=== PATIENT | female | born 1965 | race African-American/Black ===

== ENCOUNTER 2016-08-12 09:20 | Emergency (ER) | payer OTHER ==
[~2016-08-12] VITALS: Ht 162.6 cm; Wt 82.0 kg
[~2016-08-12 09:20] MED LIST: ATORVASTATIN; CO Q10; ERGO400C PO; HYDR-523 PO; METF500T4 PO; P20 PO
[2016-08-12 09:36] VITALS: BP 135/75
[2016-08-12] MEDS ORDERED: IBUPROFEN 600MG TABLET PO ONE (10:00)
== END 2016-08-12 10:41 | disposition home or self-care (01) ==
LOC: ER 09:43
DX: S16.1XXA Strain of muscle, fascia and tendon at neck level, initial encounter (principal); M19.90 Unspecified osteoarthritis, unspecified site; E11.9 Type 2 diabetes mellitus without complications; E78.00 Pure hypercholesterolemia, unspecified; J45.909 Unspecified asthma, uncomplicated; Z79.84 Long term (current) use of oral hypoglycemic drugs; Z88.0 Allergy status to penicillin; X50.1XXA Overexertion from prolonged static or awkward postures, initial encounter; Y93.89 Activity, other specified; Y92.013 Bedroom of single-family (private) house as the place of occurrence of the external cause
CPT/HCPCS: 99282

== ENCOUNTER 2016-12-23 11:09 | Emergency (ER) | payer OTHER ==
[~2016-12-23] VITALS: Ht 167.6 cm; Wt 70.0 kg
[2016-12-23 14:40] VITALS: BP 147/84
== END 2016-12-23 16:33 | disposition home or self-care (01) ==
LOC: ER 16:06
DX: I10 Essential (primary) hypertension (principal); E11.9 Type 2 diabetes mellitus without complications; Z88.0 Allergy status to penicillin
CPT/HCPCS: 99281

== ENCOUNTER 2016-12-24 21:05 | Emergency (ER) | payer OTHER ==
[~2016-12-24] VITALS: Ht 162.6 cm; Wt 83.0 kg
[2016-12-24 22:50] LABS: BASOPHILS % 0.8 % (0.0-2.0); EOSINOPHILS % 1.9 % (0.0-5.0); HEMOGLOBIN. 12.6 g/dL (12.0-16.0); MEAN CORPUSCULAR HEMOGLOBIN 29.6 pg (28.0-32.0); MEAN CORPUSCULAR VOLUME 89.3 fL (81.0-99.0); MEAN PLATELET VOLUME 9.2 fl (7.4-10.4); MONOCYTES % 8.5 % (2.0-8.0); NEUTROPHILS % 55.8 % (40.0-76.0); PLATELET 242 x1000/uL (130-400); RED BLOOD CELL COUNT 4.25 mill/uL (4.2-5.4); RED CELL DISTRIBUTION WIDTH 13.8 % (11.6-14.6)
[2016-12-24 22:56] LABS: CHLORIDE 102 mEq/L (98-107)
[2016-12-24 23:01] LABS: PARTIAL THROMBOPLASTIN TIME 28.2 sec (23.4-31.0); PROTHROMBIN TIME 10.9 sec (9.4-11.6)
[2016-12-24 23:04] LABS: CARBON DIOXIDE 27 mEq/L (21-32); CREATINE KINASE 594 IU/L (26-192); TROPONIN I < 0.02 ng/mL (0.00-0.04)
[2016-12-25 04:30] VITALS: BP 131/86
== END 2016-12-25 05:33 | disposition home or self-care (01) ==
LOC: ER 21:05
DX: F41.8 Other specified anxiety disorders (principal); R07.89 Other chest pain; I10 Essential (primary) hypertension; I51.7 Cardiomegaly; Z88.0 Allergy status to penicillin; J45.909 Unspecified asthma, uncomplicated
CPT/HCPCS: 36415; 80053; 82550; 82553; 83690; 83880; 84484; 85025; 85610; 85730; 93005; 99285; Z7610

== ENCOUNTER 2017-01-28 17:52 | Emergency (ER) | payer OTHER ==
[~2017-01-28] VITALS: Ht 162.6 cm; Wt 84.0 kg
[2017-01-28 18:05] VITALS: BP 127/91
[2017-01-28] MEDS ORDERED: ACETAMINOPHEN 500MG TABLET PO ONE (18:30)
== END 2017-01-28 18:56 | disposition home or self-care (01) ==
LOC: ER 18:11
DX: G44.209 Tension-type headache, unspecified, not intractable (principal); I10 Essential (primary) hypertension; Z88.0 Allergy status to penicillin
CPT/HCPCS: 99282

== ENCOUNTER 2017-02-20 16:40 | Emergency (ER) | payer OTHER ==
[~2017-02-20] VITALS: Ht 160 cm; Wt 81.0 kg
[2017-02-20 17:00] VITALS: BP 120/82
== END 2017-02-20 18:45 | disposition home or self-care (01) ==
LOC: ER 18:05
DX: H57.8 Other specified disorders of eye and adnexa (principal); I10 Essential (primary) hypertension; E11.9 Type 2 diabetes mellitus without complications; Z88.0 Allergy status to penicillin
CPT/HCPCS: 82962; 99282

== ENCOUNTER 2017-03-14 09:59 | Emergency (ER) | payer OTHER ==
[~2017-03-14] VITALS: Ht 162.6 cm; Wt 81.0 kg
[2017-03-14 14:13] LABS: CLARITY URINE CLEAR (CLEAR); COLOR URINE YELLOW (YELLOW); KETONES URINE NEGATIVE (NEGATIVE); LEUKOCYTE ESTERASE URINE NEGATIVE (NEGATIVE); NITRITE URINE NEGATIVE (NEGATIVE); OCCULT BLOOD URINE NEGATIVE (NEGATIVE); PH URINE 7.5 (4.5-8.0); PROTEIN URINE NEGATIVE (NEGATIVE); SPECIFIC GRAVITY URINE 1.016 (1.005-1.030); UROBILINOGEN URINE 0.2 E.U./dL (0.2-1.0)
[2017-03-14 14:16] LABS: BASOPHILS % 0.6 % (0.0-2.0); EOSINOPHILS % 0.9 % (0.0-5.0); HEMOGLOBIN. 12.2 g/dL (12.0-16.0); LYMPHOCYTES % 20.5 % (20.0-50.0); MEAN CORPUSCULAR HEMOGLOBIN 28.8 pg (28.0-32.0); MEAN PLATELET VOLUME 9.9 fl (7.4-10.4); MONOCYTES % 10.9 % (2.0-8.0); NEUTROPHILS % 67.1 % (40.0-76.0); PLATELET 175 x1000/uL (130-400); RED BLOOD CELL COUNT 4.23 mill/uL (4.2-5.4); RED CELL DISTRIBUTION WIDTH 13.7 % (11.6-14.6)
[2017-03-14 14:20] LABS: CHLORIDE 105 mEq/L (98-107)
[2017-03-14 14:21] LABS: PROTHROMBIN TIME 10.4 sec (9.4-11.6)
[2017-03-14 14:31] LABS: CARBON DIOXIDE 27 mEq/L (21-32)
[2017-03-14] MEDS ORDERED: ACETAMINOPHEN 500MG TABLET PO ONE (15:30)
[2017-03-14 15:40] VITALS: BP 127/76
== END 2017-03-14 15:44 | disposition home or self-care (01) ==
LOC: ER 10:15
DX: J06.9 Acute upper respiratory infection, unspecified (principal); R19.7 Diarrhea, unspecified; J45.909 Unspecified asthma, uncomplicated; Z88.0 Allergy status to penicillin
CPT/HCPCS: 36415; 71010; 80053; 81003; 83690; 85025; 85610; 99285; Z7610

== ENCOUNTER 2017-03-22 18:03 | Emergency (ER) | payer OTHER ==
[~2017-03-22] VITALS: Ht 162.6 cm; Wt 80.0 kg
[2017-03-23 00:10] VITALS: BP 140/90
== END 2017-03-23 00:13 | disposition home or self-care (01) ==
LOC: ER 18:03
DX: F41.9 Anxiety disorder, unspecified (principal); R20.0 Anesthesia of skin; J45.909 Unspecified asthma, uncomplicated; I10 Essential (primary) hypertension; E78.00 Pure hypercholesterolemia, unspecified; E11.9 Type 2 diabetes mellitus without complications; Z88.0 Allergy status to penicillin
CPT/HCPCS: 99282

== ENCOUNTER 2017-03-23 09:16 | Emergency (ER) | payer OTHER ==
[~2017-03-23] VITALS: Ht 162.6 cm; Wt 79.0 kg
[2017-03-23 16:35] VITALS: BP 134/90
== END 2017-03-23 16:55 | disposition left against medical advice (07) ==
LOC: ER 10:26
DX: F41.9 Anxiety disorder, unspecified (principal); Z53.21 Procedure and treatment not carried out due to patient leaving prior to being seen by health care provider

== ENCOUNTER 2017-04-12 14:03 | Emergency (ER) | payer OTHER ==
[~2017-04-12] VITALS: Ht 162.6 cm; Wt 80.0 kg
[2017-04-12 14:12] VITALS: BP 139/84
== END 2017-04-12 16:25 | disposition home or self-care (01) ==
LOC: ER 14:08
DX: M54.2 Cervicalgia (principal); M25.512 Pain in left shoulder; F43.9 Reaction to severe stress, unspecified; I10 Essential (primary) hypertension; E78.00 Pure hypercholesterolemia, unspecified; E11.9 Type 2 diabetes mellitus without complications; Z88.0 Allergy status to penicillin
CPT/HCPCS: 99281

== ENCOUNTER 2017-04-29 16:20 | Emergency (ER) | payer OTHER ==
[~2017-04-29] VITALS: Ht 162.6 cm; Wt 77.0 kg
[2017-04-29 16:37] VITALS: BP 135/88
== END 2017-04-29 19:12 | disposition left against medical advice (07) ==
LOC: ER 16:55
DX: M79.605 Pain in left leg (principal); M79.604 Pain in right leg; Z53.21 Procedure and treatment not carried out due to patient leaving prior to being seen by health care provider

== ENCOUNTER 2017-04-30 04:14 | Emergency (ER) | payer OTHER ==
[~2017-04-30] VITALS: Ht 162.6 cm; Wt 77.0 kg
[2017-04-30 06:40] VITALS: BP 135/90
== END 2017-04-30 07:00 | disposition home or self-care (01) ==
LOC: ER 04:14
DX: I10 Essential (primary) hypertension (principal); M79.1 Myalgia; E11.9 Type 2 diabetes mellitus without complications; Z88.0 Allergy status to penicillin
CPT/HCPCS: 82962; 99282

== ENCOUNTER 2017-05-10 07:33 | Emergency (ER) | payer OTHER ==
[~2017-05-10] VITALS: Ht 162.6 cm; Wt 75.0 kg
[2017-05-10 07:37] VITALS: BP 117/75
[2017-05-10] MEDS ORDERED: ACETAMINOPHEN 325MG TABLET PO ONE (09:00)
== END 2017-05-10 09:28 | disposition home or self-care (01) ==
LOC: ER 07:41
DX: R51 Headache (principal); E11.9 Type 2 diabetes mellitus without complications; I10 Essential (primary) hypertension; Z88.0 Allergy status to penicillin
CPT/HCPCS: 99282

== ENCOUNTER 2017-05-12 14:07 | Emergency (ER) | payer OTHER ==
[~2017-05-12] VITALS: Ht 152.4 cm; Wt 73.0 kg
[2017-05-12 18:35] LABS: BASOPHILS % 0.8 % (0.0-2.0); EOSINOPHILS % 2.3 % (0.0-5.0); HEMATOCRIT. 37.2 % (36.0-48.0); HEMOGLOBIN. 12.3 g/dL (12.0-16.0); LYMPHOCYTES % 40.2 % (20.0-50.0); MEAN CORPUSCULAR HEMOGLOBIN 29.3 pg (28.0-32.0); MEAN CORPUSCULAR VOLUME 88.7 fL (81.0-99.0); MONOCYTES % 7.6 % (2.0-8.0); NEUTROPHILS % 49.1 % (40.0-76.0); PLATELET 193 x1000/uL (130-400); RED CELL DISTRIBUTION WIDTH 14.6 % (11.6-14.6)
[2017-05-12 18:45] LABS: CHLORIDE 105 mEq/L (98-107)
[2017-05-12 18:46] LABS: HCG SCREEN NEGATIVE
[2017-05-12 18:50] LABS: TROPONIN I < 0.02 ng/mL (0.00-0.04)
[2017-05-12 19:01] LABS: CLARITY URINE CLEAR (CLEAR); COLOR URINE YELLOW (YELLOW); KETONES URINE NEGATIVE (NEGATIVE); LEUKOCYTE ESTERASE URINE TRACE (NEGATIVE); NITRITE URINE NEGATIVE (NEGATIVE); OCCULT BLOOD URINE NEGATIVE (NEGATIVE); PH URINE 7.5 (4.5-8.0); PROTEIN URINE NEGATIVE (NEGATIVE); SPECIFIC GRAVITY URINE 1.007 (1.005-1.030); UROBILINOGEN URINE 0.2 E.U./dL (0.2-1.0)
[2017-05-12 20:26] VITALS: BP 132/79
== END 2017-05-12 20:29 | disposition home or self-care (01) ==
LOC: ER 14:41
DX: R42 Dizziness and giddiness (principal); E11.9 Type 2 diabetes mellitus without complications; I10 Essential (primary) hypertension; E78.00 Pure hypercholesterolemia, unspecified; Z88.0 Allergy status to penicillin
CPT/HCPCS: 36415; 71045; 80053; 81003; 84484; 84703; 85025; 93005; 99285

== ENCOUNTER 2017-05-20 19:26 | Emergency (ER) | payer OTHER ==
[~2017-05-20] VITALS: Ht 165.1 cm; Wt 63.0 kg
[2017-05-21 00:34] VITALS: BP 140/88
== END 2017-05-21 00:38 | disposition home or self-care (01) ==
LOC: ER 20:00
DX: I10 Essential (primary) hypertension (principal); R51 Headache; E11.9 Type 2 diabetes mellitus without complications; Z79.84 Long term (current) use of oral hypoglycemic drugs; Z88.0 Allergy status to penicillin
CPT/HCPCS: 99283; Z7610

== ENCOUNTER 2017-05-26 05:45 | Emergency (ER) | payer OTHER ==
[~2017-05-26] VITALS: Ht 162.6 cm; Wt 77.0 kg
[2017-05-26 11:14] VITALS: BP 120/75
[2017-05-26] MEDS ORDERED: ACETAMINOPHEN 325MG TABLET PO ONE (12:45)
== END 2017-05-26 13:28 | disposition home or self-care (01) ==
LOC: ER 06:55
DX: G44.209 Tension-type headache, unspecified, not intractable (principal); I10 Essential (primary) hypertension; E78.00 Pure hypercholesterolemia, unspecified; E11.9 Type 2 diabetes mellitus without complications; Z88.0 Allergy status to penicillin
CPT/HCPCS: 82962; 99282

== ENCOUNTER 2017-05-27 21:08 | Emergency (ER) | payer OTHER ==
[~2017-05-27] VITALS: Ht 162.6 cm; Wt 77.0 kg
[2017-05-27 22:17] VITALS: BP 116/80
== END 2017-05-28 01:04 | disposition home or self-care (01) ==
LOC: ER 22:52
DX: E11.9 Type 2 diabetes mellitus without complications (principal); I10 Essential (primary) hypertension; E78.00 Pure hypercholesterolemia, unspecified
CPT/HCPCS: 99282

== ENCOUNTER 2017-05-31 11:57 | Emergency (ER) | payer OTHER ==
[~2017-05-31] VITALS: Ht 167.6 cm; Wt 78.0 kg
[2017-05-31 11:58] VITALS: BP 140/80
[2017-05-31] MEDS ORDERED: LORAZEPAM 0.5MG TABLET PO ONE (15:45)
== END 2017-05-31 15:47 | disposition home or self-care (01) ==
LOC: ER 11:57
DX: F41.9 Anxiety disorder, unspecified (principal); I10 Essential (primary) hypertension; E78.00 Pure hypercholesterolemia, unspecified; E11.9 Type 2 diabetes mellitus without complications; Z88.0 Allergy status to penicillin
CPT/HCPCS: 99284

== ENCOUNTER 2017-06-03 21:41 | Emergency (ER) | payer OTHER | END 2017-06-03 23:31 | disposition left against medical advice (07) | LOC: ER 21:41 | DX: Z53.21 Procedure and treatment not carried out due to patient leaving prior to being seen by health care provider (principal) ==

== ENCOUNTER 2017-06-08 20:11 | Emergency (ER) | payer OTHER ==
[~2017-06-08] VITALS: Ht 162.6 cm; Wt 78.0 kg
[2017-06-08 20:29] VITALS: BP 130/86
== END 2017-06-08 22:12 | disposition home or self-care (01) ==
LOC: ER 20:42
DX: H92.01 Otalgia, right ear (principal); E11.9 Type 2 diabetes mellitus without complications; E78.00 Pure hypercholesterolemia, unspecified; I10 Essential (primary) hypertension; Z88.0 Allergy status to penicillin
CPT/HCPCS: 99282

== ENCOUNTER 2017-06-16 01:09 | Emergency (ER) | payer OTHER ==
[~2017-06-16] VITALS: Ht 162.6 cm; Wt 78.0 kg
[2017-06-16 05:14] VITALS: BP 132/91
== END 2017-06-16 05:16 | disposition home or self-care (01) ==
LOC: ER 01:09
DX: R20.2 Paresthesia of skin (principal); R20.0 Anesthesia of skin; E11.9 Type 2 diabetes mellitus without complications; I10 Essential (primary) hypertension; E78.00 Pure hypercholesterolemia, unspecified; F41.9 Anxiety disorder, unspecified; E66.9 Obesity, unspecified; Z68.29 Body mass index [BMI] 29.0-29.9, adult; Z88.0 Allergy status to penicillin
CPT/HCPCS: 99283

== ENCOUNTER 2017-06-28 08:34 | Emergency (ER) | payer OTHER ==
[~2017-06-28] VITALS: Ht 162.6 cm; Wt 77.0 kg
[2017-06-28 08:38] VITALS: BP 132/83
[2017-06-28] MEDS ORDERED: HYDROCODONE/ACETAMINOPHEN 5/325MG TABLET PO ONE (09:00)
[2017-06-28] MEDS ORDERED: ACETAMINOPHEN 325MG TABLET PO ONE (09:15)
== END 2017-06-28 09:41 | disposition home or self-care (01) ==
LOC: ER 09:04
DX: R68.84 Jaw pain (principal); I10 Essential (primary) hypertension; E78.00 Pure hypercholesterolemia, unspecified; E11.9 Type 2 diabetes mellitus without complications; Z88.0 Allergy status to penicillin
CPT/HCPCS: 99283

== ENCOUNTER 2017-07-27 13:53 | Emergency (ER) | payer OTHER ==
[~2017-07-27] VITALS: Ht 162.6 cm; Wt 73.0 kg
[2017-07-27] MEDS ORDERED: LORAZEPAM 0.5MG TABLET PO ONE (16:30)
[2017-07-27 16:45] VITALS: BP 122/79
== END 2017-07-27 16:59 | disposition home or self-care (01) ==
LOC: ER 13:53
DX: F41.9 Anxiety disorder, unspecified (principal); I10 Essential (primary) hypertension; E78.00 Pure hypercholesterolemia, unspecified; E11.9 Type 2 diabetes mellitus without complications; Z88.0 Allergy status to penicillin; Z79.84 Long term (current) use of oral hypoglycemic drugs
CPT/HCPCS: 99283; 99284

== ENCOUNTER 2017-09-01 14:16 | Emergency (ER) | payer OTHER ==
[~2017-09-01] VITALS: Ht 162.6 cm; Wt 73.0 kg
[~2017-09-01 14:16] MED LIST changes: -METF500T4 PO; +METF500T6 PO
[2017-09-01 16:16] VITALS: BP 112/70
== END 2017-09-01 16:17 | disposition home or self-care (01) ==
LOC: ER 14:54
DX: F41.9 Anxiety disorder, unspecified (principal); E78.00 Pure hypercholesterolemia, unspecified; I10 Essential (primary) hypertension; E11.9 Type 2 diabetes mellitus without complications; Z88.0 Allergy status to penicillin
CPT/HCPCS: 99283

== ENCOUNTER 2017-10-13 21:22 | Emergency (ER) | payer OTHER ==
[~2017-10-13] VITALS: Ht 162.6 cm; Wt 74.0 kg
[2017-10-13 21:43] VITALS: BP 132/82
== END 2017-10-13 21:48 | disposition left against medical advice (07) ==
LOC: ER 21:22
DX: M54.2 Cervicalgia (principal); I10 Essential (primary) hypertension; E11.9 Type 2 diabetes mellitus without complications; E78.00 Pure hypercholesterolemia, unspecified; Z53.21 Procedure and treatment not carried out due to patient leaving prior to being seen by health care provider

== ENCOUNTER 2017-10-23 17:48 | Emergency (ER) | payer OTHER ==
[~2017-10-23] VITALS: Ht 157.5 cm; Wt 71.8 kg
[2017-10-23 20:29] LABS: BASOPHILS % 0.7 % (0.0-2.0); EOSINOPHILS % 1.5 % (0.0-5.0); HEMOGLOBIN. 12.7 g/dL (12.0-16.0); LYMPHOCYTES % 29.6 % (20.0-50.0); MEAN CORPUSCULAR HEMOGLOBIN 29.5 pg (28.0-32.0); MEAN CORPUSCULAR VOLUME 90.7 fL (81.0-99.0); MEAN PLATELET VOLUME 9.3 fl (7.4-10.4); MONOCYTES % 6.7 % (2.0-8.0); NEUTROPHILS % 61.5 % (40.0-76.0); PLATELET 201 x1000/uL (130-400); RED CELL DISTRIBUTION WIDTH 14.2 % (11.6-14.6)
[2017-10-23 20:34] LABS: CHLORIDE 104 mEq/L (98-107)
[2017-10-23 20:40] LABS: D-DIMER 0.21 mg/L FEU (<0.50); PARTIAL THROMBOPLASTIN TIME 27.6 sec (23.4-31.0); PROTHROMBIN TIME 10.3 sec (9.1-11.1)
[2017-10-23 21:01] VITALS: BP 126/80
== END 2017-10-23 21:03 | disposition home or self-care (01) ==
LOC: ER 17:48
DX: R20.2 Paresthesia of skin (principal); I10 Essential (primary) hypertension; E11.9 Type 2 diabetes mellitus without complications
CPT/HCPCS: 36415; 80053; 83690; 83880; 84484; 85025; 85379; 85610; 85730; 93005; 99285

== ENCOUNTER 2017-10-27 06:26 | Emergency (ER) | payer OTHER ==
[~2017-10-27] VITALS: Ht 165.1 cm; Wt 79.9 kg
[2017-10-27] MEDS ORDERED: ALBUTEROL (0.083%) 2.5MG/3ML NEB HHN STA (07:34)
[2017-10-27] MEDS ORDERED: IPRATROPIUM BROMIDE (0.02%) 0.5MG/2.5ML NEB HHN STA (07:34)
[2017-10-27 09:44] VITALS: BP 133/77
== END 2017-10-27 09:46 | disposition home or self-care (01) ==
LOC: ER 07:36
DX: J45.901 Unspecified asthma with (acute) exacerbation (principal); E78.00 Pure hypercholesterolemia, unspecified; I10 Essential (primary) hypertension; Z79.899 Other long term (current) drug therapy; Z88.0 Allergy status to penicillin
CPT/HCPCS: 94640; 99283; J7611

== ENCOUNTER 2017-10-31 11:53 | Emergency (ER) | payer OTHER ==
[~2017-10-31] VITALS: Ht 165.1 cm; Wt 73.0 kg
[2017-10-31 12:22] VITALS: BP 113/70
== END 2017-10-31 13:04 | disposition home or self-care (01) ==
LOC: ER 11:53
DX: R20.2 Paresthesia of skin (principal); E11.9 Type 2 diabetes mellitus without complications; J45.909 Unspecified asthma, uncomplicated; E78.00 Pure hypercholesterolemia, unspecified; Z79.84 Long term (current) use of oral hypoglycemic drugs; Z88.0 Allergy status to penicillin
CPT/HCPCS: 93005; 99283

== ENCOUNTER 2017-11-19 17:43 | Emergency (ER) | payer OTHER ==
[~2017-11-19] VITALS: Ht 165.1 cm; Wt 72.0 kg
[2017-11-19 18:35] VITALS: BP 136/94
== END 2017-11-19 19:21 | disposition home or self-care (01) ==
LOC: ER 17:43
DX: T18.9XXD Foreign body of alimentary tract, part unspecified, subsequent encounter (principal); J45.909 Unspecified asthma, uncomplicated; E78.00 Pure hypercholesterolemia, unspecified; Z88.0 Allergy status to penicillin; Z79.899 Other long term (current) drug therapy; X58.XXXD Exposure to other specified factors, subsequent encounter
CPT/HCPCS: 99281

== ENCOUNTER 2017-11-25 08:42 | Emergency (ER) | payer OTHER ==
[~2017-11-25] VITALS: Ht 167.6 cm; Wt 73.0 kg
[2017-11-25] MEDS ORDERED: ALBUTEROL (0.083%) 2.5MG/3ML NEB HHN STA (10:42)
[2017-11-25] MEDS ORDERED: IPRATROPIUM BROMIDE (0.02%) 0.5MG/2.5ML NEB HHN STA (10:42)
[2017-11-25 11:58] VITALS: BP 112/76
== END 2017-11-25 12:04 | disposition home or self-care (01) ==
LOC: ER 08:42
DX: J45.901 Unspecified asthma with (acute) exacerbation (principal); E11.9 Type 2 diabetes mellitus without complications; E78.00 Pure hypercholesterolemia, unspecified; Z88.0 Allergy status to penicillin
CPT/HCPCS: 94640; 99283; J7611

== ENCOUNTER 2017-12-09 19:46 | Emergency (ER) | payer OTHER ==
[~2017-12-09] VITALS: Ht 165.1 cm; Wt 74.0 kg
[2017-12-09 23:25] VITALS: BP 133/84
== END 2017-12-09 23:26 | disposition home or self-care (01) ==
LOC: ER 21:01
DX: Z00.00 Encounter for general adult medical examination without abnormal findings (principal); E11.9 Type 2 diabetes mellitus without complications; I10 Essential (primary) hypertension; E78.00 Pure hypercholesterolemia, unspecified; J45.909 Unspecified asthma, uncomplicated; Z88.0 Allergy status to penicillin; Z79.84 Long term (current) use of oral hypoglycemic drugs

== ENCOUNTER 2017-12-20 05:40 | Emergency (ER) | payer OTHER ==
[~2017-12-20] VITALS: Ht 162.6 cm; Wt 74.0 kg
[2017-12-20 06:41] VITALS: BP 127/78
== END 2017-12-20 06:46 | disposition home or self-care (01) ==
LOC: ER 05:40
DX: F17.210 Nicotine dependence, cigarettes, uncomplicated (principal); J45.909 Unspecified asthma, uncomplicated; E11.9 Type 2 diabetes mellitus without complications; E78.00 Pure hypercholesterolemia, unspecified; I10 Essential (primary) hypertension; Z00.00 Encounter for general adult medical examination without abnormal findings; Z88.0 Allergy status to penicillin; Z79.899 Other long term (current) drug therapy
CPT/HCPCS: 99281

== ENCOUNTER 2017-12-24 18:26 | Emergency (ER) | payer OTHER ==
[~2017-12-24] VITALS: Ht 162.6 cm; Wt 73.0 kg
[2017-12-24 19:11] VITALS: BP 150/81
== END 2017-12-24 21:03 | disposition home or self-care (01) ==
LOC: ER 18:26
DX: E11.40 Type 2 diabetes mellitus with diabetic neuropathy, unspecified (principal); J45.909 Unspecified asthma, uncomplicated; E11.9 Type 2 diabetes mellitus without complications; E78.00 Pure hypercholesterolemia, unspecified; F17.200 Nicotine dependence, unspecified, uncomplicated; Z88.0 Allergy status to penicillin; Z79.899 Other long term (current) drug therapy
CPT/HCPCS: 82962; 99281

== ENCOUNTER 2018-01-18 08:23 | Emergency (ER) | payer OTHER ==
[~2018-01-18] VITALS: Ht 162.6 cm; Wt 72.0 kg
[~2018-01-18 08:23] MED LIST changes: +METF-414 PO; -METF500T6 PO
[2018-01-18] MEDS ORDERED: FLUORESCEIN SODIUM 1MG/STRIP LEFTEYE ONE (09:15)
[2018-01-18 10:28] VITALS: BP 138/76
== END 2018-01-18 10:43 | disposition home or self-care (01) ==
LOC: ER 09:33
DX: S91.332A Puncture wound without foreign body, left foot, initial encounter (principal); W45.0XXA Nail entering through skin, initial encounter; J45.909 Unspecified asthma, uncomplicated; E78.00 Pure hypercholesterolemia, unspecified; I10 Essential (primary) hypertension; Z88.0 Allergy status to penicillin; Y93.89 Activity, other specified; Y92.018 Other place in single-family (private) house as the place of occurrence of the external cause
CPT/HCPCS: 73620; 99284

== ENCOUNTER 2018-01-22 07:56 | Emergency (ER) | payer OTHER ==
[~2018-01-22] VITALS: Ht 165.1 cm; Wt 73.0 kg
[2018-01-22 08:03] VITALS: BP 122/85
== END 2018-01-22 10:01 | disposition left against medical advice (07) ==
LOC: ER 09:20
DX: Z53.21 Procedure and treatment not carried out due to patient leaving prior to being seen by health care provider (principal)

== ENCOUNTER 2018-02-02 10:15 | Emergency (ER) | payer OTHER ==
[~2018-02-02] VITALS: Ht 165.1 cm; Wt 73.0 kg
[2018-02-02 10:42] VITALS: BP 132/85
== END 2018-02-02 13:37 | disposition home or self-care (01) ==
LOC: ER 12:58
DX: S16.1XXA Strain of muscle, fascia and tendon at neck level, initial encounter (principal); E78.00 Pure hypercholesterolemia, unspecified; I10 Essential (primary) hypertension; F10.20 Alcohol dependence, uncomplicated; X58.XXXA Exposure to other specified factors, initial encounter; Y93.89 Activity, other specified; Y92.89 Other specified places as the place of occurrence of the external cause; Y99.8 Other external cause status; Z88.0 Allergy status to penicillin; Z79.899 Other long term (current) drug therapy; Y90.9 Presence of alcohol in blood, level not specified
CPT/HCPCS: 99282

== ENCOUNTER 2018-02-26 13:55 | Emergency (ER) | payer OTHER ==
[~2018-02-26] VITALS: Ht 160 cm; Wt 60.0 kg
[2018-02-26 16:07] VITALS: BP 115/80
== END 2018-02-26 16:13 | disposition home or self-care (01) ==
LOC: ER 13:55
DX: G62.9 Polyneuropathy, unspecified (principal); E11.8 Type 2 diabetes mellitus with unspecified complications; I10 Essential (primary) hypertension; E78.00 Pure hypercholesterolemia, unspecified; Z79.84 Long term (current) use of oral hypoglycemic drugs; Z88.0 Allergy status to penicillin; F10.21 Alcohol dependence, in remission
CPT/HCPCS: 99281

== ENCOUNTER 2018-03-16 15:34 | Emergency (ER) | payer OTHER ==
[~2018-03-16] VITALS: Ht 162.6 cm; Wt 68.0 kg
[2018-03-16 17:08] LABS: CHLORIDE 105 mEq/L (98-107)
[2018-03-16 17:12] LABS: BASOPHILS % 0.8 % (0.0-2.0); EOSINOPHILS % 1.8 % (0.0-5.0); HEMATOCRIT. 35.3 % (36.0-48.0); HEMOGLOBIN. 11.6 g/dL (12.0-16.0); LYMPHOCYTES % 43.6 % (20.0-50.0); MEAN CORPUSCULAR HEMOGLOBIN 29.9 pg (28.0-32.0); MEAN CORPUSCULAR VOLUME 91.5 fL (81.0-99.0); MEAN PLATELET VOLUME 9.7 fl (7.4-10.4); MONOCYTES % 8.6 % (2.0-8.0); NEUTROPHILS % 45.2 % (40.0-76.0); PLATELET 170 x1000/uL (130-400); RED BLOOD CELL COUNT 3.86 mill/uL (4.2-5.4)
[2018-03-16] MEDS ORDERED: POTASSIUM CHLORIDE 20MEQ TABLET SR PO ONE (18:00)
[2018-03-16 19:00] VITALS: BP 130/79
== END 2018-03-16 18:35 | disposition home or self-care (01) ==
LOC: ER 15:34
DX: R07.89 Other chest pain (principal); E87.6 Hypokalemia; R05 Cough; E78.00 Pure hypercholesterolemia, unspecified; I10 Essential (primary) hypertension; F10.20 Alcohol dependence, uncomplicated; Z88.0 Allergy status to penicillin; Z79.899 Other long term (current) drug therapy; Y90.9 Presence of alcohol in blood, level not specified
CPT/HCPCS: 36415; 71045; 84484; 93005; 99284

== ENCOUNTER 2018-03-31 12:59 | Emergency (ER) | payer OTHER ==
[~2018-03-31] VITALS: Ht 162.6 cm; Wt 71.0 kg
[2018-03-31 16:59] VITALS: BP 136/42
== END 2018-03-31 19:26 | disposition home or self-care (01) ==
LOC: ER 13:00
DX: M54.30 Sciatica, unspecified side (principal); G89.29 Other chronic pain; E78.00 Pure hypercholesterolemia, unspecified; I10 Essential (primary) hypertension; Z88.0 Allergy status to penicillin
CPT/HCPCS: 99283

== ENCOUNTER 2018-04-07 08:04 | Emergency (ER) | payer OTHER ==
[~2018-04-07] VITALS: Ht 160 cm; Wt 72.0 kg
[2018-04-07] MEDS ORDERED: IBUPROFEN 600MG TABLET PO ONE (08:30)
[2018-04-07 08:42] VITALS: BP 124/82
== END 2018-04-07 08:52 | disposition home or self-care (01) ==
LOC: ER 08:29
DX: H92.03 Otalgia, bilateral (principal); F41.9 Anxiety disorder, unspecified; E78.00 Pure hypercholesterolemia, unspecified; I10 Essential (primary) hypertension; Z88.0 Allergy status to penicillin
CPT/HCPCS: 99282

== ENCOUNTER 2018-05-10 10:28 | Emergency (ER) | payer OTHER ==
[~2018-05-10] VITALS: Ht 162.6 cm; Wt 72.0 kg
[2018-05-10 13:52] VITALS: BP 132/52
== END 2018-05-10 13:57 | disposition home or self-care (01) ==
LOC: ER 10:28
DX: K21.9 Gastro-esophageal reflux disease without esophagitis (principal); E78.00 Pure hypercholesterolemia, unspecified; I10 Essential (primary) hypertension; F10.21 Alcohol dependence, in remission; Z88.0 Allergy status to penicillin
CPT/HCPCS: 99282

== ENCOUNTER 2018-05-27 18:01 | Emergency (ER) | payer OTHER ==
[~2018-05-27] VITALS: Ht 162.6 cm; Wt 72.0 kg
[2018-05-27 20:05] VITALS: BP 145/89
== END 2018-05-27 20:07 | disposition home or self-care (01) ==
LOC: ER 18:05
DX: S16.1XXA Strain of muscle, fascia and tendon at neck level, initial encounter (principal); F17.200 Nicotine dependence, unspecified, uncomplicated; E78.00 Pure hypercholesterolemia, unspecified; I10 Essential (primary) hypertension; F10.20 Alcohol dependence, uncomplicated; Y90.9 Presence of alcohol in blood, level not specified; Z98.890 Other specified postprocedural states; Z88.0 Allergy status to penicillin; Z79.899 Other long term (current) drug therapy; X58.XXXA Exposure to other specified factors, initial encounter; Y93.89 Activity, other specified; Y92.89 Other specified places as the place of occurrence of the external cause; Y99.8 Other external cause status
CPT/HCPCS: 99282

== ENCOUNTER 2018-06-14 07:37 | Emergency (ER) | payer OTHER ==
[~2018-06-14] VITALS: Ht 162.6 cm; Wt 76.0 kg
[2018-06-14] MEDS ORDERED: ACETAMINOPHEN 325MG TABLET PO ONE (08:45)
[2018-06-14 09:15] VITALS: BP 111/75
== END 2018-06-14 09:20 | disposition home or self-care (01) ==
LOC: ER 07:55
DX: S16.1XXA Strain of muscle, fascia and tendon at neck level, initial encounter (principal); E78.00 Pure hypercholesterolemia, unspecified; I10 Essential (primary) hypertension; F41.9 Anxiety disorder, unspecified; Z88.0 Allergy status to penicillin; X58.XXXA Exposure to other specified factors, initial encounter; Y93.89 Activity, other specified; Y92.018 Other place in single-family (private) house as the place of occurrence of the external cause
CPT/HCPCS: 99282

== ENCOUNTER 2018-07-06 10:38 | Emergency (ER) | payer OTHER ==
[~2018-07-06] VITALS: Ht 162.6 cm; Wt 80.0 kg
[2018-07-06 15:58] VITALS: BP 121/81
== END 2018-07-06 15:58 | disposition home or self-care (01) ==
LOC: ER 11:08
DX: S96.012A Strain of muscle and tendon of long flexor muscle of toe at ankle and foot level, left foot, initial encounter (principal); E78.00 Pure hypercholesterolemia, unspecified; I10 Essential (primary) hypertension; X58.XXXA Exposure to other specified factors, initial encounter; Y93.89 Activity, other specified; Y92.89 Other specified places as the place of occurrence of the external cause; Y99.8 Other external cause status; Z88.8 Allergy status to other drugs, medicaments and biological substances; Z88.0 Allergy status to penicillin; Z79.899 Other long term (current) drug therapy
CPT/HCPCS: 73610; 81025; 99283

== ENCOUNTER 2018-07-23 09:41 | Emergency (ER) | payer OTHER ==
[~2018-07-23] VITALS: Ht 165.1 cm; Wt 73.0 kg
[2018-07-23] MEDS ORDERED: IBUPROFEN 800MG TABLET PO ONE (11:15)
[2018-07-23 11:19] VITALS: BP 131/83
== END 2018-07-23 12:32 | disposition home or self-care (01) ==
LOC: ER 09:41
DX: M25.512 Pain in left shoulder (principal); M25.511 Pain in right shoulder; J06.9 Acute upper respiratory infection, unspecified; I10 Essential (primary) hypertension; E78.00 Pure hypercholesterolemia, unspecified; F11.10 Opioid abuse, uncomplicated; Z88.0 Allergy status to penicillin; Z79.899 Other long term (current) drug therapy
CPT/HCPCS: 71045; 81025; 99283

== ENCOUNTER 2018-08-11 15:19 | Emergency (ER) | payer OTHER ==
[~2018-08-11] VITALS: Ht 165.1 cm; Wt 72.0 kg
[2018-08-11] MEDS ORDERED: ACETAMINOPHEN 325MG TABLET PO ONE (16:45)
[2018-08-11 17:22] VITALS: BP 115/66
== END 2018-08-11 17:27 | disposition home or self-care (01) ==
LOC: ER 15:19
DX: S80.11XA Contusion of right lower leg, initial encounter (principal); W01.198A Fall on same level from slipping, tripping and stumbling with subsequent striking against other object, initial encounter; Y93.K1 Activity, walking an animal; Y92.89 Other specified places as the place of occurrence of the external cause
CPT/HCPCS: 73590; 99283

== ENCOUNTER 2018-08-16 11:12 | Emergency (ER) | payer OTHER ==
[~2018-08-16] VITALS: Ht 165.1 cm; Wt 73.0 kg
[2018-08-16] MEDS ORDERED: ACETAMINOPHEN 325MG TABLET PO STA (13:41)
[2018-08-16 13:53] VITALS: BP 112/72
== END 2018-08-16 13:54 | disposition home or self-care (01) ==
LOC: ER 11:47
DX: S70.12XA Contusion of left thigh, initial encounter (principal); I10 Essential (primary) hypertension; E78.00 Pure hypercholesterolemia, unspecified; F11.10 Opioid abuse, uncomplicated; Z88.0 Allergy status to penicillin; W01.0XXA Fall on same level from slipping, tripping and stumbling without subsequent striking against object, initial encounter; Y93.89 Activity, other specified; Y92.018 Other place in single-family (private) house as the place of occurrence of the external cause
CPT/HCPCS: 99282

== ENCOUNTER 2018-08-18 18:52 | Emergency (ER) | payer OTHER ==
[~2018-08-18] VITALS: Ht 165.1 cm; Wt 73.0 kg
[2018-08-18 22:22] VITALS: BP 130/85
== END 2018-08-18 22:23 | disposition home or self-care (01) ==
LOC: ER 18:52
DX: R51 Headache (principal); I10 Essential (primary) hypertension; E78.00 Pure hypercholesterolemia, unspecified; Z88.0 Allergy status to penicillin; Z79.899 Other long term (current) drug therapy
CPT/HCPCS: 99283

== ENCOUNTER 2018-09-04 13:31 | Emergency (ER) | payer OTHER ==
[~2018-09-04] VITALS: Ht 162.6 cm; Wt 75.0 kg
[2018-09-04 13:49] VITALS: BP 145/85
[2018-09-04] MEDS ORDERED: ACETAMINOPHEN 500MG TABLET PO ONE (14:15)
== END 2018-09-04 14:25 | disposition home or self-care (01) ==
LOC: ER 13:31
DX: S46.812A Strain of other muscles, fascia and tendons at shoulder and upper arm level, left arm, initial encounter (principal); E78.00 Pure hypercholesterolemia, unspecified; I10 Essential (primary) hypertension; Z88.0 Allergy status to penicillin; X58.XXXA Exposure to other specified factors, initial encounter; Y93.89 Activity, other specified; Y92.018 Other place in single-family (private) house as the place of occurrence of the external cause
CPT/HCPCS: 99282

== ENCOUNTER 2018-09-20 07:27 | Emergency (ER) | payer OTHER ==
[~2018-09-20] VITALS: Ht 162.6 cm; Wt 75.0 kg
[2018-09-20 08:34] VITALS: BP 128/84
== END 2018-09-20 08:53 | disposition home or self-care (01) ==
LOC: ER 07:27
DX: J45.901 Unspecified asthma with (acute) exacerbation (principal); I10 Essential (primary) hypertension; E78.00 Pure hypercholesterolemia, unspecified; Z88.0 Allergy status to penicillin
CPT/HCPCS: 99282

== ENCOUNTER 2018-10-04 07:35 | Emergency (ER) | payer OTHER ==
[~2018-10-04] VITALS: Ht 162.6 cm; Wt 72.0 kg
[2018-10-04 07:40] VITALS: BP 131/78
[2018-10-04] MEDS ORDERED: ACETAMINOPHEN 325MG TABLET PO ONE (08:30)
== END 2018-10-04 09:37 | disposition home or self-care (01) ==
LOC: ER 07:35
DX: S29.011A Strain of muscle and tendon of front wall of thorax, initial encounter (principal); I10 Essential (primary) hypertension; F41.9 Anxiety disorder, unspecified; E78.00 Pure hypercholesterolemia, unspecified; J45.909 Unspecified asthma, uncomplicated; Z88.0 Allergy status to penicillin; X50.0XXA Overexertion from strenuous movement or load, initial encounter; Y93.89 Activity, other specified; Y92.013 Bedroom of single-family (private) house as the place of occurrence of the external cause
CPT/HCPCS: 71045; 99283

== ENCOUNTER 2018-10-09 01:10 | Emergency (ER) | payer OTHER ==
[~2018-10-09] VITALS: Ht 165.1 cm; Wt 73.0 kg
[2018-10-09] MEDS ORDERED: ALBUTEROL (0.083%) 2.5MG/3ML NEB HHN STA (03:05)
[2018-10-09] MEDS ORDERED: IPRATROPIUM BROMIDE (0.02%) 0.5MG/2.5ML NEB HHN STA (03:05)
[2018-10-09] MEDS ORDERED: DIPHENHYDRAMINE 25MG CAPSULE PO ONE (04:30)
[2018-10-09 04:57] VITALS: BP 118/72
== END 2018-10-09 04:57 | disposition home or self-care (01) ==
LOC: ER 01:10
DX: R06.02 Shortness of breath (principal); S80.261A Insect bite (nonvenomous), right knee, initial encounter; J45.909 Unspecified asthma, uncomplicated; I10 Essential (primary) hypertension; E78.00 Pure hypercholesterolemia, unspecified; Z88.0 Allergy status to penicillin; W57.XXXA Bitten or stung by nonvenomous insect and other nonvenomous arthropods, initial encounter; Y93.89 Activity, other specified; Y92.018 Other place in single-family (private) house as the place of occurrence of the external cause
CPT/HCPCS: 94640; 99283; J7611; Q0163

== ENCOUNTER 2018-10-20 06:40 | Emergency (ER) | payer OTHER ==
[~2018-10-20] VITALS: Ht 165.1 cm; Wt 75.0 kg
[2018-10-20 08:55] LABS: CLARITY URINE CLEAR (CLEAR); COLOR URINE YELLOW (YELLOW); KETONES URINE NEGATIVE (NEGATIVE); LEUKOCYTE ESTERASE URINE 1+ (NEGATIVE); NITRITE URINE NEGATIVE (NEGATIVE); OCCULT BLOOD URINE 1+ (NEGATIVE); PH URINE 5.5 (4.5-8.0); PROTEIN URINE NEGATIVE (NEGATIVE); SPECIFIC GRAVITY URINE 1.013 (1.005-1.030); UROBILINOGEN URINE 0.2 E.U./dL (0.2-1.0)
[2018-10-20 11:30] VITALS: BP 134/82
== END 2018-10-20 11:39 | disposition home or self-care (01) ==
LOC: ER 06:40
DX: N39.0 Urinary tract infection, site not specified (principal); E78.00 Pure hypercholesterolemia, unspecified; I10 Essential (primary) hypertension; J45.909 Unspecified asthma, uncomplicated; Z88.0 Allergy status to penicillin
CPT/HCPCS: 71045; 76770; 81025; 99284

== ENCOUNTER 2018-10-27 08:02 | Emergency (ER) | payer OTHER ==
[~2018-10-27] VITALS: Ht 165.1 cm; Wt 75.0 kg
[2018-10-27 09:47] LABS: CLARITY URINE CLEAR (CLEAR); COLOR URINE YELLOW (YELLOW); KETONES URINE NEGATIVE (NEGATIVE); LEUKOCYTE ESTERASE URINE NEGATIVE (NEGATIVE); NITRITE URINE NEGATIVE (NEGATIVE); OCCULT BLOOD URINE NEGATIVE (NEGATIVE); PH URINE 6.5 (4.5-8.0); PROTEIN URINE NEGATIVE (NEGATIVE); SPECIFIC GRAVITY URINE 1.007 (1.005-1.030); UROBILINOGEN URINE 0.2 E.U./dL (0.2-1.0)
[2018-10-27 10:00] VITALS: BP 132/80
== END 2018-10-27 10:02 | disposition home or self-care (01) ==
LOC: ER 08:02
DX: N76.0 Acute vaginitis (principal); E78.00 Pure hypercholesterolemia, unspecified; I10 Essential (primary) hypertension
CPT/HCPCS: 81003; 99283

== ENCOUNTER 2018-10-28 20:32 | Emergency (ER) | payer OTHER ==
[~2018-10-28] VITALS: Ht 172.7 cm; Wt 91.0 kg
[2018-10-28 21:36] VITALS: BP 144/91
== END 2018-10-28 21:37 | disposition home or self-care (01) ==
LOC: ER 20:32
DX: I10 Essential (primary) hypertension (principal); F41.1 Generalized anxiety disorder; E11.9 Type 2 diabetes mellitus without complications; E78.00 Pure hypercholesterolemia, unspecified; Z88.0 Allergy status to penicillin; Z79.84 Long term (current) use of oral hypoglycemic drugs; Z79.899 Other long term (current) drug therapy
CPT/HCPCS: 99283; 99284

== ENCOUNTER 2018-11-11 07:29 | Emergency (ER) | payer OTHER ==
[~2018-11-11] VITALS: Ht 165.1 cm; Wt 75.0 kg
[2018-11-11] MEDS ORDERED: DROS1TAB MT (07:50)
[2018-11-11] MEDS ORDERED: PRAV40TA58 MT (07:50)
[2018-11-11 10:08] VITALS: BP 124/88
== END 2018-11-11 10:09 | disposition home or self-care (01) ==
LOC: ER 07:29
DX: R42 Dizziness and giddiness (principal); E11.9 Type 2 diabetes mellitus without complications; E78.00 Pure hypercholesterolemia, unspecified; I10 Essential (primary) hypertension; Z79.899 Other long term (current) drug therapy; Z88.0 Allergy status to penicillin
CPT/HCPCS: 99283

== ENCOUNTER 2018-11-19 09:08 | Emergency (ER) | payer OTHER ==
[~2018-11-19] VITALS: Ht 165.1 cm; Wt 75.0 kg
[~2018-11-19 09:08] MED LIST changes: -ATORVASTATIN; +DROS1TAB MT; -ERGO400C PO; -METF-414 PO; -P20 PO; +PRAV40TA58 MT
[2018-11-19 09:33] VITALS: BP 136/83
== END 2018-11-19 12:05 | disposition home or self-care (01) ==
LOC: ER 09:08
DX: S30.861A Insect bite (nonvenomous) of abdominal wall, initial encounter (principal); R73.03 Prediabetes; I10 Essential (primary) hypertension; E78.00 Pure hypercholesterolemia, unspecified; J45.909 Unspecified asthma, uncomplicated; Z88.0 Allergy status to penicillin; W57.XXXA Bitten or stung by nonvenomous insect and other nonvenomous arthropods, initial encounter; Y93.89 Activity, other specified; Y92.018 Other place in single-family (private) house as the place of occurrence of the external cause
CPT/HCPCS: 99281

== ENCOUNTER 2018-11-25 21:40 | Emergency (ER) | payer OTHER ==
[~2018-11-25] VITALS: Ht 165.1 cm; Wt 75.0 kg
[2018-11-26 01:36] VITALS: BP 121/81
== END 2018-11-26 01:37 | disposition home or self-care (01) ==
LOC: ER 21:40
DX: S80.862A Insect bite (nonvenomous), left lower leg, initial encounter (principal); E11.9 Type 2 diabetes mellitus without complications; J45.909 Unspecified asthma, uncomplicated; I10 Essential (primary) hypertension; E78.00 Pure hypercholesterolemia, unspecified; Z88.0 Allergy status to penicillin; Z79.899 Other long term (current) drug therapy; W57.XXXA Bitten or stung by nonvenomous insect and other nonvenomous arthropods, initial encounter; Y93.89 Activity, other specified; Y92.89 Other specified places as the place of occurrence of the external cause; Y99.8 Other external cause status
CPT/HCPCS: 99281

== ENCOUNTER 2018-12-01 10:40 | Emergency (ER) | payer OTHER ==
[~2018-12-01] VITALS: Ht 165.1 cm; Wt 73.0 kg
[2018-12-01 10:47] VITALS: BP 135/83
[2018-12-01] MEDS ORDERED: ACETAMINOPHEN 325MG TABLET PO ONE (12:45)
== END 2018-12-01 13:31 | disposition home or self-care (01) ==
LOC: ER 12:02
DX: R51 Headache (principal); F41.9 Anxiety disorder, unspecified; J45.909 Unspecified asthma, uncomplicated; E11.9 Type 2 diabetes mellitus without complications; E78.00 Pure hypercholesterolemia, unspecified; I10 Essential (primary) hypertension; Z88.0 Allergy status to penicillin
CPT/HCPCS: 99282

== ENCOUNTER 2018-12-02 18:36 | Emergency (ER) | payer OTHER ==
[~2018-12-02] VITALS: Ht 165.1 cm; Wt 73.0 kg
[2018-12-02] MEDS ORDERED: IPRATROPIUM/ALBUTEROL 0.5-3(2.5)MG/3ML NEB HHN ONE (22:45)
[2018-12-02 23:01] LABS: BASOPHILS % 0.8 % (0.0-2.0); EOSINOPHILS % 1.8 % (0.0-5.0); HEMOGLOBIN. 11.8 g/dL (12.0-16.0); LYMPHOCYTES % 41.8 % (20.0-50.0); MEAN CORPUSCULAR HEMOGLOBIN 30.7 pg (28.0-32.0); MEAN PLATELET VOLUME 9.4 fl (7.4-10.4); MONOCYTES % 7.1 % (2.0-8.0); NEUTROPHILS % 48.5 % (40.0-76.0); PLATELET 176 x1000/uL (130-400); RED BLOOD CELL COUNT 3.84 mill/uL (4.2-5.4); RED CELL DISTRIBUTION WIDTH 13.5 % (11.6-14.6)
[2018-12-02 23:06] LABS: CHLORIDE 106 mEq/L (98-107)
[2018-12-03] MEDS ORDERED: ACETAMINOPHEN 325MG TABLET PO ONE
[2018-12-03 00:14] VITALS: BP 131/87
== END 2018-12-03 00:23 | disposition home or self-care (01) ==
LOC: ER 18:36
DX: M54.12 Radiculopathy, cervical region (principal); R20.2 Paresthesia of skin; E11.9 Type 2 diabetes mellitus without complications; J45.909 Unspecified asthma, uncomplicated; E78.00 Pure hypercholesterolemia, unspecified; I10 Essential (primary) hypertension; Z88.0 Allergy status to penicillin; Z87.891 Personal history of nicotine dependence
CPT/HCPCS: 36415; 71045; 80053; 83690; 83880; 84484; 85025; 85379; 93005; 94640; 99284; J7620; Z7610

== ENCOUNTER 2019-01-01 15:10 | Emergency (ER) | payer OTHER ==
[~2019-01-01] VITALS: Ht 165.1 cm; Wt 77.0 kg
[2019-01-01] MEDS ORDERED: ACETAMINOPHEN 325MG TABLET PO ONE (17:45)
[2019-01-01 18:17] VITALS: BP 122/74
== END 2019-01-01 17:48 | disposition home or self-care (01) ==
LOC: ER 17:36
DX: R42 Dizziness and giddiness (principal); M54.6 Pain in thoracic spine; E11.9 Type 2 diabetes mellitus without complications; I10 Essential (primary) hypertension; E78.00 Pure hypercholesterolemia, unspecified; J45.909 Unspecified asthma, uncomplicated; Z88.0 Allergy status to penicillin
CPT/HCPCS: 93005; 99283

== ENCOUNTER 2019-01-06 14:16 | Emergency (ER) | payer OTHER ==
[~2019-01-06] VITALS: Ht 165.1 cm; Wt 76.0 kg
[2019-01-06] MEDS ORDERED: IBUPROFEN 800MG TABLET PO ONE (17:45)
[2019-01-06 18:42] VITALS: BP 121/64
== END 2019-01-06 18:46 | disposition home or self-care (01) ==
LOC: ER 15:18
DX: M79.662 Pain in left lower leg (principal); J45.909 Unspecified asthma, uncomplicated; E11.9 Type 2 diabetes mellitus without complications; E78.00 Pure hypercholesterolemia, unspecified; I10 Essential (primary) hypertension; Z88.0 Allergy status to penicillin; Z79.899 Other long term (current) drug therapy
CPT/HCPCS: 93970; 99284

== ENCOUNTER 2019-01-17 20:31 | Emergency (ER) | payer OTHER ==
[~2019-01-17] VITALS: Ht 162.6 cm; Wt 78.0 kg
[2019-01-17] MEDS ORDERED: ALBUTEROL (0.083%) 2.5MG/3ML NEB HHN STA (20:46)
[2019-01-17] MEDS ORDERED: IPRATROPIUM BROMIDE (0.02%) 0.5MG/2.5ML NEB HHN STA (20:46)
[2019-01-17] MEDS ORDERED: PREDNISONE 20MG TABLET PO STA (20:46)
[2019-01-17 21:56] VITALS: BP 134/84
== END 2019-01-17 21:57 | disposition home or self-care (01) ==
LOC: ER 20:31
DX: J45.901 Unspecified asthma with (acute) exacerbation (principal); E11.9 Type 2 diabetes mellitus without complications; E78.00 Pure hypercholesterolemia, unspecified; I10 Essential (primary) hypertension; Z88.0 Allergy status to penicillin
CPT/HCPCS: 94644; 99285; J7512; J7611; Z7610

== ENCOUNTER 2019-01-18 19:55 | Emergency (ER) | payer OTHER ==
[~2019-01-18] VITALS: Ht 165.1 cm; Wt 79.5 kg
[2019-01-18 20:47] VITALS: BP 118/76
== END 2019-01-18 20:47 | disposition home or self-care (01) ==
LOC: ER 19:55
DX: M94.0 Chondrocostal junction syndrome [Tietze] (principal); G62.9 Polyneuropathy, unspecified; J45.909 Unspecified asthma, uncomplicated; E78.00 Pure hypercholesterolemia, unspecified; Z88.0 Allergy status to penicillin; Z79.899 Other long term (current) drug therapy
CPT/HCPCS: 99281

== ENCOUNTER 2019-01-21 18:02 | Emergency (ER) | payer OTHER ==
[~2019-01-21] VITALS: Ht 165.1 cm; Wt 78.0 kg
[2019-01-21] MEDS ORDERED: IBUPROFEN 800MG TABLET PO ONE (18:30)
[2019-01-21] MEDS ORDERED: ACETAMINOPHEN 325MG TABLET PO ONE (18:30)
[2019-01-21 19:14] VITALS: BP 139/92
== END 2019-01-21 19:14 | disposition home or self-care (01) ==
LOC: ER 18:02
DX: R07.89 Other chest pain (principal); K21.9 Gastro-esophageal reflux disease without esophagitis; I10 Essential (primary) hypertension; J45.909 Unspecified asthma, uncomplicated; F41.9 Anxiety disorder, unspecified; E78.00 Pure hypercholesterolemia, unspecified; Z88.0 Allergy status to penicillin
CPT/HCPCS: 71045; 93005; 99283

== ENCOUNTER 2019-01-27 16:02 | Emergency (ER) | payer OTHER ==
[~2019-01-27] VITALS: Ht 165.1 cm; Wt 78.0 kg
[2019-01-27] MEDS ORDERED: ALBUTEROL (0.083%) 2.5MG/3ML NEB HHN STA (16:28)
[2019-01-27 17:13] VITALS: BP 121/76
== END 2019-01-27 17:13 | disposition home or self-care (01) ==
LOC: ER 16:02
DX: J45.901 Unspecified asthma with (acute) exacerbation (principal); E78.00 Pure hypercholesterolemia, unspecified; I10 Essential (primary) hypertension; Z88.0 Allergy status to penicillin; Z79.899 Other long term (current) drug therapy
CPT/HCPCS: 94640; 99283; J7611; Z7610

== ENCOUNTER 2019-02-10 07:14 | Emergency (ER) | payer OTHER ==
[~2019-02-10] VITALS: Ht 165.1 cm; Wt 77.0 kg
[2019-02-10 07:27] VITALS: BP 126/82
== END 2019-02-10 08:38 | disposition home or self-care (01) ==
LOC: ER 07:14
DX: J45.901 Unspecified asthma with (acute) exacerbation (principal); R06.2 Wheezing; R06.02 Shortness of breath; Z88.0 Allergy status to penicillin; I10 Essential (primary) hypertension; E78.00 Pure hypercholesterolemia, unspecified; J45.909 Unspecified asthma, uncomplicated; Z79.899 Other long term (current) drug therapy
CPT/HCPCS: 99283

== ENCOUNTER 2019-03-01 16:43 | Emergency (ER) | payer OTHER ==
[~2019-03-01] VITALS: Ht 165.1 cm; Wt 77.0 kg
[2019-03-01] MEDS ORDERED: PREDNISONE 20MG TABLET PO STA (20:18)
[2019-03-01] MEDS ORDERED: ALBUTEROL (0.083%) 2.5MG/3ML NEB HHN STA (20:18)
[2019-03-01 21:18] VITALS: BP 121/85
== END 2019-03-01 21:19 | disposition home or self-care (01) ==
LOC: ER 16:43
DX: J45.901 Unspecified asthma with (acute) exacerbation (principal); E78.00 Pure hypercholesterolemia, unspecified; I10 Essential (primary) hypertension; Z88.0 Allergy status to penicillin; Z79.899 Other long term (current) drug therapy
CPT/HCPCS: 94640; 99283; J7512; J7611; Z7610

== ENCOUNTER 2019-03-11 15:22 | Emergency (ER) | payer OTHER ==
[~2019-03-11] VITALS: Ht 165.1 cm; Wt 78.0 kg
[2019-03-11] MEDS ORDERED: DEXAMETHASONE 10 MG/ML VIAL PO ONE (17:15)
[2019-03-11 17:47] VITALS: BP 147/86
== END 2019-03-11 17:47 | disposition home or self-care (01) ==
LOC: ER 15:22
DX: R05 Cough (principal); Z76.0 Encounter for issue of repeat prescription; J45.909 Unspecified asthma, uncomplicated; I10 Essential (primary) hypertension; E78.00 Pure hypercholesterolemia, unspecified; Z88.0 Allergy status to penicillin
CPT/HCPCS: 99282; J1100

== ENCOUNTER 2019-03-18 10:22 | Emergency (ER) | payer OTHER ==
[~2019-03-18] VITALS: Ht 165.1 cm; Wt 75.0 kg
[2019-03-18] MEDS ORDERED: ACETAMINOPHEN 500MG TABLET PO ONE (12:00)
[2019-03-18 12:11] LABS: CLARITY URINE CLEAR (CLEAR); COLOR URINE YELLOW (YELLOW); KETONES URINE NEGATIVE (NEGATIVE); LEUKOCYTE ESTERASE URINE 2+ (NEGATIVE); NITRITE URINE NEGATIVE (NEGATIVE); OCCULT BLOOD URINE NEGATIVE (NEGATIVE); PROTEIN URINE NEGATIVE (NEGATIVE); SPECIFIC GRAVITY URINE 1.011 (1.005-1.030); UROBILINOGEN URINE 0.2 E.U./dL (0.2-1.0)
[2019-03-18 13:14] VITALS: BP 130/68
== END 2019-03-18 13:15 | disposition home or self-care (01) ==
LOC: ER 10:22
DX: T14.8XXA Other injury of unspecified body region, initial encounter (principal); R10.11 Right upper quadrant pain; I10 Essential (primary) hypertension; E78.00 Pure hypercholesterolemia, unspecified; Z88.0 Allergy status to penicillin; X58.XXXA Exposure to other specified factors, initial encounter; Y93.89 Activity, other specified; Y92.018 Other place in single-family (private) house as the place of occurrence of the external cause
CPT/HCPCS: 81003; 99283

== ENCOUNTER 2019-03-30 15:44 | Emergency (ER) | payer OTHER ==
[~2019-03-30] VITALS: Ht 165.1 cm; Wt 77.0 kg
[2019-03-30] MEDS ORDERED: ACETAMINOPHEN 325MG TABLET PO ONE (19:45)
[2019-03-30 19:55] VITALS: BP 130/81
== END 2019-03-30 19:56 | disposition home or self-care (01) ==
LOC: ER 15:44
DX: M79.652 Pain in left thigh (principal); E11.9 Type 2 diabetes mellitus without complications; E78.00 Pure hypercholesterolemia, unspecified; I10 Essential (primary) hypertension; Z88.0 Allergy status to penicillin
CPT/HCPCS: 99283

== ENCOUNTER 2019-05-04 16:24 | Emergency (ER) | payer OTHER ==
[~2019-05-04] VITALS: Ht 160 cm; Wt 81.0 kg
[2019-05-04 16:52] VITALS: BP 126/86
== END 2019-05-04 18:31 | disposition home or self-care (01) ==
LOC: ER 16:24
DX: M72.2 Plantar fascial fibromatosis (principal); I10 Essential (primary) hypertension; Z88.0 Allergy status to penicillin
CPT/HCPCS: 99283

== ENCOUNTER 2019-07-08 12:38 | Emergency (ER) | payer OTHER ==
[~2019-07-08] VITALS: Ht 165.1 cm; Wt 78.0 kg
[2019-07-08 12:55] VITALS: BP 123/72
== END 2019-07-08 13:42 | disposition home or self-care (01) ==
LOC: ER 12:38
DX: H00.015 Hordeolum externum left lower eyelid (principal); H01.005 Unspecified blepharitis left lower eyelid; I10 Essential (primary) hypertension; J45.909 Unspecified asthma, uncomplicated; Z88.0 Allergy status to penicillin
CPT/HCPCS: 99283

== ENCOUNTER 2019-07-21 08:24 | Emergency (ER) | payer OTHER ==
[~2019-07-21] VITALS: Ht 160 cm; Wt 75.0 kg
[2019-07-21 08:30] VITALS: BP 110/69
== END 2019-07-21 09:09 | disposition home or self-care (01) ==
LOC: ER 08:24
DX: H00.016 Hordeolum externum left eye, unspecified eyelid (principal); I10 Essential (primary) hypertension; Z88.0 Allergy status to penicillin; Z79.899 Other long term (current) drug therapy
CPT/HCPCS: 99282

== ENCOUNTER 2019-08-18 22:08 | Emergency (ER) | payer OTHER ==
[~2019-08-18] VITALS: Ht 165.1 cm; Wt 77.0 kg
[2019-08-18] MEDS ORDERED: ACETAMINOPHEN 325MG TABLET PO ONE (23:15)
[2019-08-18 23:20] VITALS: BP 127/79
== END 2019-08-18 23:30 | disposition home or self-care (01) ==
LOC: ER 22:08
DX: R06.02 Shortness of breath (principal); F22 Delusional disorders; I10 Essential (primary) hypertension; Z88.0 Allergy status to penicillin; Z79.899 Other long term (current) drug therapy
CPT/HCPCS: 99282

== ENCOUNTER 2019-10-09 11:43 | Inpatient (IN) | payer OTHER ==
[~2019-10-09] VITALS: Ht 165.1 cm; Wt 82.6 kg
[2019-10-09] MEDS ORDERED: ASPIRIN 81MG TABLET PO ONE (12:15)
[2019-10-09 12:40] LABS: BASOPHILS % 0.9 % (0.0-2.0); EOSINOPHILS % 1.3 % (0.0-5.0); HEMATOCRIT. 37.4 % (36.0-48.0); HEMOGLOBIN. 12.5 g/dL (12.0-16.0); LYMPHOCYTES % 40.1 % (20.0-50.0); MEAN CORPUSCULAR HEMOGLOBIN 30.2 pg (28.0-32.0); MEAN CORPUSCULAR VOLUME 90.2 fL (81.0-99.0); MEAN PLATELET VOLUME 9.3 fl (7.4-10.4); MONOCYTES % 7.9 % (2.0-8.0); NEUTROPHILS % 49.8 % (40.0-76.0); PLATELET 202 x1000/uL (130-400); RED BLOOD CELL COUNT 4.14 mill/uL (4.2-5.4); RED CELL DISTRIBUTION WIDTH 13.4 % (11.6-14.6)
[2019-10-09 12:47] LABS: CHLORIDE 108 mEq/L (98-107)
[2019-10-09 13:11] LABS: D-DIMER < 0.19 mg/L FEU (<0.50); PARTIAL THROMBOPLASTIN TIME 28.3 sec (23.4-31.0); PROTHROMBIN TIME 10.6 sec (9.6-11.0)
[2019-10-09] MEDS ORDERED: HYDROCODONE/ACETAMINOPHEN 10/325MG TABLET PO PRN (17:00)
[2019-10-09] MEDS ORDERED: HYDRALAZINE 20MG/ML VIAL IV PRN (17:00)
[2019-10-09] MEDS ORDERED: MAGNESIUM/ALUMINUM HYDROXIDE/SIMETHICONE 30ML UDC PO PRN (17:00)
[2019-10-09] MEDS ORDERED: ONDANSETRON HCL 4MG/2ML INJ IV PRN (17:00)
[2019-10-09] MEDS ORDERED: LORAZEPAM 2MG/ML CPJ IV PRN (17:00)
[2019-10-09] MEDS ORDERED: CLONIDINE 0.1MG TABLET PO PRN (17:00)
[2019-10-09] MEDS ORDERED: GUAIFENESIN 200MG/10ML SUGAR FREE UDC PO PRN (17:00)
[2019-10-09] MEDS ORDERED: MORPHINE SULFATE 2 MG/ML CPJ (NOT FOR IM USE) IV PRN (17:00)
[2019-10-09] MEDS ORDERED: ACETAMINOPHEN 325MG TABLET PO PRN (17:00)
[2019-10-09] MEDS ORDERED: DOCUSATE SODIUM 100MG CAPSULE PO PRN (17:00)
[2019-10-09] MEDS ORDERED: IPRATROPIUM/ALBUTEROL 0.5-3(2.5)MG/3ML NEB HHN PRN (17:00)
[2019-10-09] MEDS ORDERED: DIPHENHYDRAMINE 50MG/ML VIAL IV PRN (17:00)
[2019-10-09] MEDS ORDERED: AMLO2.5T45 PO (17:33)
[2019-10-09 17:43] VITALS: BP 136/75
[2019-10-09] MEDS ORDERED: ENOXAPARIN 40MG/0.4ML SYR SUBCUT SCH (18:00)
[2019-10-09 20:21] VITALS: BP 156/84
[2019-10-09] MEDS: SODIUM CHLORIDE 0.9% INJ 3ML FLUSH IVF SCH (22:20)
[2019-10-09 23:46] LABS: CREATINE KINASE 181 IU/L (26-192)
[2019-10-09 23:47] LABS: CREATINE KINASE MB FRACTION 1.2 ng/mL (0.5-3.6)
[2019-10-10] VITALS: BP 125/53
[2019-10-10 04:00] VITALS: BP 148/90
[2019-10-10] MEDS: SODIUM CHLORIDE 0.9% INJ 3ML FLUSH IVF SCH ×2 (06:00→15:01)
[2019-10-10 07:31] LABS: CHLORIDE 106 mEq/L (98-107)
[2019-10-10 07:40] LABS: CREATINE KINASE 182 IU/L (26-192)
[2019-10-10 07:42] LABS: CREATINE KINASE MB FRACTION 1.8 ng/mL (0.5-3.6)
[2019-10-10 07:51] LABS: BASOPHILS % 0.8 % (0.0-2.0); EOSINOPHILS % 1.3 % (0.0-5.0); HEMATOCRIT. 37.9 % (36.0-48.0); HEMOGLOBIN. 12.4 g/dL (12.0-16.0); LYMPHOCYTES % 37.2 % (20.0-50.0); MEAN CORPUSCULAR HEMOGLOBIN 29.5 pg (28.0-32.0); MEAN CORPUSCULAR VOLUME 90.4 fL (81.0-99.0); MEAN PLATELET VOLUME 9.4 fl (7.4-10.4); MONOCYTES % 6.9 % (2.0-8.0); NEUTROPHILS % 53.8 % (40.0-76.0); PLATELET 184 x1000/uL (130-400); RED BLOOD CELL COUNT 4.19 mill/uL (4.2-5.4); RED CELL DISTRIBUTION WIDTH 13.8 % (11.6-14.6)
[2019-10-10 08:00] VITALS: BP 128/76
[2019-10-10 09:32] LABS: T4 FREE 1.05 ng/dL (0.76-1.46)
[2019-10-10 12:00] VITALS: BP 131/88
[2019-10-10 14:23] VITALS: BP 131/88
== END 2019-10-10 15:45 | disposition home or self-care (01) | DRG 243 ==
LOC: ER 11:43 → 5WST 16:05 → EDBEDREQTM 16:08 → EDBEDREQ 16:08 → ENRESERV 16:30
PROVIDERS: ADMIT Internal Medicine; ATTEND Internal Medicine
DX: K21.9 Gastro-esophageal reflux disease without esophagitis (principal); E11.9 Type 2 diabetes mellitus without complications; E78.00 Pure hypercholesterolemia, unspecified; E78.5 Hyperlipidemia, unspecified; I10 Essential (primary) hypertension; J45.909 Unspecified asthma, uncomplicated; Z88.0 Allergy status to penicillin; Z79.899 Other long term (current) drug therapy
CPT/HCPCS: 36415; 71045; 80053; 80061; 82550; 82553; 83036; 83880; 84439; 84443; 84484; 85025; 85379; 93005; 93306; 93970; 96372; 99285; J1650; J2270

== ENCOUNTER 2019-10-29 08:10 | Emergency (ER) | payer OTHER ==
[~2019-10-29] VITALS: Ht 165.1 cm; Wt 77.0 kg
[~2019-10-29 08:10] MED LIST changes: +AMLO2.5T45 PO
[2019-10-29 08:16] VITALS: BP 124/88
[2019-10-29] MEDS ORDERED: ACETAMINOPHEN 325MG TABLET PO ONE (08:30)
== END 2019-10-29 08:47 | disposition home or self-care (01) ==
LOC: ER 08:20
DX: S76.812A Strain of other specified muscles, fascia and tendons at thigh level, left thigh, initial encounter (principal); S76.811A Strain of other specified muscles, fascia and tendons at thigh level, right thigh, initial encounter; E11.9 Type 2 diabetes mellitus without complications; I10 Essential (primary) hypertension; E78.00 Pure hypercholesterolemia, unspecified; X58.XXXA Exposure to other specified factors, initial encounter; Y93.89 Activity, other specified; Y92.59 Other trade areas as the place of occurrence of the external cause
CPT/HCPCS: 99282

== ENCOUNTER 2020-01-31 07:30 | Emergency (ER) | payer OTHER ==
[~2020-01-31] VITALS: Ht 165.1 cm; Wt 77.0 kg
[2020-01-31 07:39] VITALS: BP 141/82
[2020-01-31] MEDS ORDERED: KETOROLAC 30MG/ML VIAL IM ONE (08:15)
== END 2020-01-31 08:45 | disposition home or self-care (01) ==
LOC: ER 08:12
DX: S16.1XXA Strain of muscle, fascia and tendon at neck level, initial encounter (principal); Y08.89XA Assault by other specified means, initial encounter; Y93.89 Activity, other specified; Y92.89 Other specified places as the place of occurrence of the external cause; Y99.8 Other external cause status; J45.909 Unspecified asthma, uncomplicated; E11.9 Type 2 diabetes mellitus without complications; E78.00 Pure hypercholesterolemia, unspecified; I10 Essential (primary) hypertension; Z79.899 Other long term (current) drug therapy; Z88.0 Allergy status to penicillin
CPT/HCPCS: 96372; 99283; J1885

== ENCOUNTER 2020-02-09 15:06 | Emergency (ER) | payer OTHER ==
[~2020-02-09] VITALS: Ht 162.6 cm; Wt 77.0 kg
[2020-02-09 16:31] LABS: BASOPHILS % 0.6 % (0.0-2.0); EOSINOPHILS % 1.5 % (0.0-5.0); HEMATOCRIT. 36.2 % (36.0-48.0); HEMOGLOBIN. 11.9 g/dL (12.0-16.0); LYMPHOCYTES % 36.9 % (20.0-50.0); MEAN CORPUSCULAR HEMOGLOBIN 29.4 pg (28.0-32.0); MEAN CORPUSCULAR VOLUME 89.6 fL (81.0-99.0); MEAN PLATELET VOLUME 9.1 fl (7.4-10.4); MONOCYTES % 8.2 % (2.0-8.0); NEUTROPHILS % 52.8 % (40.0-76.0); PLATELET 183 x1000/uL (130-400); RED BLOOD CELL COUNT 4.04 mill/uL (4.2-5.4); RED CELL DISTRIBUTION WIDTH 14.3 % (11.6-14.6)
[2020-02-09 16:34] LABS: CHLORIDE 106 mEq/L (98-107)
[2020-02-09 16:36] LABS: PROTHROMBIN TIME 10.1 sec (9.6-11.0)
[2020-02-09 16:38] LABS: ETHANOL BLOOD < 10 mg/dL
[2020-02-09 17:16] LABS: CLARITY URINE CLEAR (CLEAR); COLOR URINE YELLOW (YELLOW); KETONES URINE NEGATIVE (NEGATIVE); LEUKOCYTE ESTERASE URINE NEGATIVE (NEGATIVE); NITRITE URINE NEGATIVE (NEGATIVE); OCCULT BLOOD URINE NEGATIVE (NEGATIVE); PH URINE 7.5 (4.5-8.0); PROTEIN URINE NEGATIVE (NEGATIVE); SPECIFIC GRAVITY URINE 1.025 (1.005-1.030)
[2020-02-09 17:27] LABS: *AMPHETAMINES SCREEN URINE NEGATIVE (NEGATIVE); *BARBITURATES SCREEN URINE NEGATIVE (NEGATIVE); *BENZODIAZEPINES SCREEN URINE NEGATIVE (NEGATIVE); *COCAINE SCREEN URINE NEGATIVE (NEGATIVE); CANNABINOID URINE SCREEN NEGATIVE (NEGATIVE)
[2020-02-09 17:28] LABS: METHADONE URINE SCREEN NEGATIVE (NEGATIVE); OPIATES URINE SCREEN NEGATIVE (NEGATIVE); PHENCYCLIDINE URINE SCREEN NEGATIVE (NEGATIVE)
[2020-02-09 17:30] VITALS: BP 143/86
== END 2020-02-09 18:30 | disposition home or self-care (01) ==
LOC: ER 15:31
DX: R10.9 Unspecified abdominal pain (principal); E78.00 Pure hypercholesterolemia, unspecified; E11.9 Type 2 diabetes mellitus without complications; J45.909 Unspecified asthma, uncomplicated; I10 Essential (primary) hypertension; Z88.0 Allergy status to penicillin; Z79.899 Other long term (current) drug therapy
CPT/HCPCS: 36415; 80053; 80305; 80320; 81003; 81025; 85025; 93005; 99284; G0480

== ENCOUNTER 2020-06-18 13:04 | Emergency (ER) | payer OTHER ==
[~2020-06-18] VITALS: Ht 165.1 cm; Wt 77.0 kg
[2020-06-18] MEDS ORDERED: ACETAMINOPHEN 325MG TABLET PO ONE (13:45)
[2020-06-18] MEDS ORDERED: TOPUD MT (13:46)
[2020-06-18 13:51] VITALS: BP 127/81
== END 2020-06-18 14:02 | disposition home or self-care (01) ==
LOC: ER 13:04
DX: T63.441A Toxic effect of venom of bees, accidental (unintentional), initial encounter (principal); M79.642 Pain in left hand; E11.9 Type 2 diabetes mellitus without complications; E78.00 Pure hypercholesterolemia, unspecified; I10 Essential (primary) hypertension; J45.909 Unspecified asthma, uncomplicated; Z88.0 Allergy status to penicillin; Y92.017 Garden or yard in single-family (private) house as the place of occurrence of the external cause
CPT/HCPCS: 99282

== ENCOUNTER 2020-06-30 09:49 | Emergency (ER) | payer OTHER ==
[~2020-06-30] VITALS: Ht 165.1 cm; Wt 65.0 kg
[~2020-06-30 09:49] MED LIST changes: +TOPUD MT
[2020-06-30 09:54] VITALS: BP 138/86
[2020-06-30] MEDS ORDERED: NEOM28.37 TP (10:11)
[2020-06-30] MEDS ORDERED: TOPUD MT (10:11)
[2020-06-30] MEDS ORDERED: ACETAMINOPHEN 325MG TABLET PO ONE (10:15)
== END 2020-06-30 10:35 | disposition home or self-care (01) ==
LOC: ER 09:49
DX: S00.81XA Abrasion of other part of head, initial encounter (principal); I10 Essential (primary) hypertension; E11.9 Type 2 diabetes mellitus without complications; E78.00 Pure hypercholesterolemia, unspecified; J45.909 Unspecified asthma, uncomplicated; Z88.0 Allergy status to penicillin; W22.8XXA Striking against or struck by other objects, initial encounter; Y93.E1 Activity, personal bathing and showering; Y92.012 Bathroom of single-family (private) house as the place of occurrence of the external cause
CPT/HCPCS: 99282

== ENCOUNTER 2020-07-13 13:50 | Emergency (ER) | payer OTHER ==
[~2020-07-13] VITALS: Ht 165.1 cm; Wt 77.0 kg
[~2020-07-13 13:50] MED LIST changes: +NEOM28.37 TP
[2020-07-13] MEDS ORDERED: BACITRACIN ZINC OINT UDPKT TOP ONE (14:45)
[2020-07-13] MEDS ORDERED: LIDOCAINE HCL/EPINEPHRINE 1%-EPI 1:100,000 10 ML VIAL IJ ONE (14:45)
[2020-07-13] MEDS ORDERED: LIDOCAINE HCL/EPINEPHRINE 1%-EPI 1:100,000 20 ML VIAL MC ONE (15:00)
[2020-07-13] MEDS ORDERED: CLIN300C12 MT (15:04)
[2020-07-13 15:17] VITALS: BP 121/71
== END 2020-07-13 15:18 | disposition home or self-care (01) ==
LOC: ER 13:50
DX: S90.851A Superficial foreign body, right foot, initial encounter (principal); E11.9 Type 2 diabetes mellitus without complications; I10 Essential (primary) hypertension; J45.909 Unspecified asthma, uncomplicated; Z88.0 Allergy status to penicillin; W25.XXXA Contact with sharp glass, initial encounter; Y93.89 Activity, other specified; Y92.018 Other place in single-family (private) house as the place of occurrence of the external cause
CPT/HCPCS: 99283; J3490

== ENCOUNTER 2020-08-13 17:08 | Emergency (ER) | payer MEDICAID, OTHER ==
[~2020-08-13] VITALS: Ht 165.1 cm; Wt 77.0 kg
[~2020-08-13 17:08] MED LIST changes: +CLIN300C12 MT
[2020-08-13 18:00] VITALS: BP 133/84
== END 2020-08-13 18:01 | disposition home or self-care (01) ==
LOC: ER 17:57
DX: I10 Essential (primary) hypertension (principal); E11.9 Type 2 diabetes mellitus without complications; E78.00 Pure hypercholesterolemia, unspecified; J45.909 Unspecified asthma, uncomplicated; G62.9 Polyneuropathy, unspecified; Z88.0 Allergy status to penicillin
CPT/HCPCS: 99281

== ENCOUNTER 2020-08-23 16:19 | Emergency (ER) | payer OTHER ==
[~2020-08-23] VITALS: Ht 157.5 cm; Wt 77.0 kg
[2020-08-23 18:07] LABS: BASOPHILS % 0.9 % (0.0-2.0); EOSINOPHILS % 0.7 % (0.0-5.0); HEMATOCRIT. 35.7 % (36.0-48.0); LYMPHOCYTES % 29.5 % (20.0-50.0); MEAN CORPUSCULAR HEMOGLOBIN 29.9 pg (28.0-32.0); MEAN CORPUSCULAR VOLUME 88.8 fL (81.0-99.0); MEAN PLATELET VOLUME 9.4 fl (7.4-10.4); MONOCYTES % 6.9 % (2.0-8.0); PLATELET 174 x1000/uL (130-400); RED BLOOD CELL COUNT 4.02 mill/uL (4.2-5.4); RED CELL DISTRIBUTION WIDTH 13.5 % (11.6-14.6)
[2020-08-23 18:09] LABS: CHLORIDE 108 mEq/L (98-107)
[2020-08-23 18:19] LABS: PARTIAL THROMBOPLASTIN TIME 28.9 sec (23.4-31.0); PROTHROMBIN TIME 10.9 sec (9.6-11.0)
[2020-08-23 18:51] VITALS: BP 113/82
== END 2020-08-23 18:52 | disposition home or self-care (01) ==
LOC: ER 16:19
DX: S40.021A Contusion of right upper arm, initial encounter (principal); E11.9 Type 2 diabetes mellitus without complications; E78.00 Pure hypercholesterolemia, unspecified; I10 Essential (primary) hypertension; J45.909 Unspecified asthma, uncomplicated; Z88.0 Allergy status to penicillin; Z79.899 Other long term (current) drug therapy; X58.XXXA Exposure to other specified factors, initial encounter; Y93.89 Activity, other specified; Y92.89 Other specified places as the place of occurrence of the external cause; Y99.8 Other external cause status
CPT/HCPCS: 36415; 80053; 85025; 85610; 85730; 99283; Z7610

== ENCOUNTER 2020-08-28 08:15 | Emergency (ER) | payer OTHER ==
[~2020-08-28] VITALS: Ht 165.1 cm; Wt 77.0 kg
[2020-08-28 08:18] VITALS: BP 135/80
== END 2020-08-28 10:39 | disposition home or self-care (01) ==
LOC: ER 08:26
DX: S40.021A Contusion of right upper arm, initial encounter (principal); I10 Essential (primary) hypertension; E11.9 Type 2 diabetes mellitus without complications; J45.909 Unspecified asthma, uncomplicated; E78.00 Pure hypercholesterolemia, unspecified; Z88.0 Allergy status to penicillin; Z79.899 Other long term (current) drug therapy; W22.8XXA Striking against or struck by other objects, initial encounter; Y93.89 Activity, other specified; Y92.89 Other specified places as the place of occurrence of the external cause; Y99.8 Other external cause status
CPT/HCPCS: 93971; 99284

== ENCOUNTER 2020-09-06 19:26 | Emergency (ER) | payer OTHER ==
[~2020-09-06] VITALS: Ht 162.6 cm; Wt 77.0 kg
[2020-09-06 19:35] VITALS: BP 121/77
== END 2020-09-06 20:49 | disposition home or self-care (01) ==
LOC: ER 19:32
DX: R58 Hemorrhage, not elsewhere classified (principal); J45.909 Unspecified asthma, uncomplicated; E11.9 Type 2 diabetes mellitus without complications; E78.00 Pure hypercholesterolemia, unspecified; I10 Essential (primary) hypertension; Z79.899 Other long term (current) drug therapy; Z88.0 Allergy status to penicillin
CPT/HCPCS: 99281; 99283

== ENCOUNTER 2020-09-15 16:45 | Emergency (ER) | payer OTHER ==
[~2020-09-15] VITALS: Ht 165.1 cm; Wt 77.0 kg
[2020-09-15 16:48] VITALS: BP 116/71
[2020-09-15] MEDS ORDERED: ACETAMINOPHEN 325MG TABLET PO ONE (17:15)
[2020-09-15] MEDS ORDERED: TOPUD MT (17:16)
== END 2020-09-15 17:29 | disposition home or self-care (01) ==
LOC: ER 16:45
DX: G44.209 Tension-type headache, unspecified, not intractable (principal); H92.01 Otalgia, right ear; E11.9 Type 2 diabetes mellitus without complications; I10 Essential (primary) hypertension; E78.00 Pure hypercholesterolemia, unspecified; J45.909 Unspecified asthma, uncomplicated; Z88.0 Allergy status to penicillin
CPT/HCPCS: 99282

== ENCOUNTER 2020-11-29 15:10 | Emergency (ER) | payer MEDICAID, OTHER ==
[~2020-11-29] VITALS: Ht 162.6 cm; Wt 74.0 kg
[~2020-11-29 15:10] MED LIST changes: +DIPH103G TP; +ONDA4TAB5 MT
[2020-11-29] MEDS ORDERED: CLOP75TA33 PO (15:15)
[2020-11-29 15:59] VITALS: BP 137/87
== END 2020-11-29 16:00 | disposition home or self-care (01) ==
LOC: ER 15:10
DX: R58 Hemorrhage, not elsewhere classified (principal); J45.909 Unspecified asthma, uncomplicated; E11.9 Type 2 diabetes mellitus without complications; E78.00 Pure hypercholesterolemia, unspecified; I10 Essential (primary) hypertension; Z79.899 Other long term (current) drug therapy; Z88.0 Allergy status to penicillin
CPT/HCPCS: 99281

== ENCOUNTER 2020-12-02 11:19 | Emergency (ER) | payer OTHER ==
[~2020-12-02] VITALS: Ht 165.1 cm; Wt 78.0 kg
[~2020-12-02 11:19] MED LIST changes: +CLOP75TA33 PO
[2020-12-02] MEDS ORDERED: metformin (11:28)
[2020-12-02 13:10] LABS: BASOPHILS % 0.5 % (0.0-2.0); HEMATOCRIT. 35.9 % (36.0-48.0); HEMOGLOBIN. 12.5 g/dL (12.0-16.0); LYMPHOCYTES % 25.6 % (20.0-50.0); MEAN CORPUSCULAR HEMOGLOBIN 31.3 pg (28.0-32.0); MEAN CORPUSCULAR VOLUME 89.8 fL (81.0-99.0); MEAN PLATELET VOLUME 8.9 fl (7.4-10.4); MONOCYTES % 6.4 % (2.0-8.0); NEUTROPHILS % 66.5 % (40.0-76.0); PLATELET 220 x1000/uL (130-400)
[2020-12-02 13:13] LABS: CHLORIDE 109 mEq/L (98-107)
[2020-12-02] MEDS ORDERED: SODIUM CHLORIDE 0.9% 1,000 ML IV ONE (13:15)
[2020-12-02 13:17] LABS: PROTHROMBIN TIME 10.9 sec (9.6-11.0)
[2020-12-02 14:56] VITALS: BP 120/80
== END 2020-12-02 15:00 | disposition home or self-care (01) ==
LOC: ER 11:19
DX: R55 Syncope and collapse (principal); E78.00 Pure hypercholesterolemia, unspecified; I10 Essential (primary) hypertension; J45.909 Unspecified asthma, uncomplicated; Z88.0 Allergy status to penicillin; Z79.899 Other long term (current) drug therapy
CPT/HCPCS: 36415; 71045; 80053; 84484; 85025; 85610; 93005; 96360; 99285; J7030

== ENCOUNTER 2020-12-05 11:06 | Emergency (ER) | payer OTHER ==
[~2020-12-05] VITALS: Ht 165.1 cm; Wt 89.0 kg
[~2020-12-05 11:06] MED LIST changes: +metformin
[2020-12-05] MEDS ORDERED: FAMOTIDINE 20MG/2ML VIAL IV STA (11:26)
[2020-12-05] MEDS ORDERED: SODIUM CHLORIDE 0.9% 1,000 ML IV ONE (11:30)
[2020-12-05 11:58] LABS: CLARITY URINE CLEAR (CLEAR); COLOR URINE YELLOW (YELLOW); KETONES URINE NEGATIVE (NEGATIVE); LEUKOCYTE ESTERASE URINE NEGATIVE (NEGATIVE); NITRITE URINE NEGATIVE (NEGATIVE); OCCULT BLOOD URINE NEGATIVE (NEGATIVE); PH URINE 6.5 (4.5-8.0); PROTEIN URINE NEGATIVE (NEGATIVE); SPECIFIC GRAVITY URINE 1.007 (1.005-1.030); UROBILINOGEN URINE 0.2 E.U./dL (0.2-1.0)
[2020-12-05 12:00] LABS: CHLORIDE 108 mEq/L (98-107)
[2020-12-05 12:01] LABS: BASOPHILS % 0.8 % (0.0-2.0); EOSINOPHILS % 1.2 % (0.0-5.0); HEMATOCRIT. 36.4 % (36.0-48.0); HEMOGLOBIN. 11.8 g/dL (12.0-16.0); LYMPHOCYTES % 42.8 % (20.0-50.0); MEAN CORPUSCULAR HEMOGLOBIN 29.2 pg (28.0-32.0); MEAN CORPUSCULAR VOLUME 89.8 fL (81.0-99.0); MEAN PLATELET VOLUME 8.9 fl (7.4-10.4); MONOCYTES % 7.9 % (2.0-8.0); NEUTROPHILS % 47.3 % (40.0-76.0); PLATELET 207 x1000/uL (130-400); RED BLOOD CELL COUNT 4.06 mill/uL (4.2-5.4); RED CELL DISTRIBUTION WIDTH 14.1 % (11.6-14.6)
[2020-12-05 12:19] LABS: HCG SCREEN INDETERMINATE
[2020-12-05 12:26] LABS: PROTHROMBIN TIME 10.7 sec (9.6-11.0)
[2020-12-05] MEDS ORDERED: OMEP20CA14 MT (12:57)
[2020-12-05 14:59] VITALS: BP 142/89
== END 2020-12-05 15:02 | disposition home or self-care (01) ==
LOC: ER 11:06
DX: R10.13 Epigastric pain (principal); K21.9 Gastro-esophageal reflux disease without esophagitis; I10 Essential (primary) hypertension; E11.9 Type 2 diabetes mellitus without complications; E78.00 Pure hypercholesterolemia, unspecified; Z79.84 Long term (current) use of oral hypoglycemic drugs; Z88.0 Allergy status to penicillin
CPT/HCPCS: 36415; 80053; 81003; 83690; 84703; 85025; 85610; 96361; 96374; 99283; J3490; J7030

== ENCOUNTER 2020-12-09 21:54 | Emergency (ER) | payer OTHER ==
[~2020-12-09 21:54] MED LIST changes: +OMEP20CA14 MT
[2020-12-10] MEDS ORDERED: ACET-2708 MT (09:20)
== END 2020-12-09 23:13 | disposition left against medical advice (07) ==
LOC: ER 21:54
DX: Z53.21 Procedure and treatment not carried out due to patient leaving prior to being seen by health care provider (principal)

== ENCOUNTER 2020-12-10 07:33 | Emergency (ER) | payer OTHER ==
[~2020-12-10] VITALS: Ht 165.1 cm; Wt 74.0 kg
[2020-12-10] MEDS ORDERED: KETOROLAC 30MG/ML VIAL IM STA (08:19)
[2020-12-10] MEDS ORDERED: ACET-2708 MT (09:20)
[2020-12-10 09:32] VITALS: BP 146/74
== END 2020-12-10 09:32 | disposition home or self-care (01) ==
LOC: ER 07:33
DX: M79.605 Pain in left leg (principal); I10 Essential (primary) hypertension; E11.9 Type 2 diabetes mellitus without complications; E78.00 Pure hypercholesterolemia, unspecified; Z79.84 Long term (current) use of oral hypoglycemic drugs
CPT/HCPCS: 93971; 96372; 99284; J1885

== ENCOUNTER 2020-12-29 09:03 | Emergency (ER) | payer OTHER ==
[~2020-12-29] VITALS: Ht 165.1 cm; Wt 75.0 kg
[~2020-12-29 09:03] MED LIST changes: +ACET-2708 MT
[2020-12-29 09:20] VITALS: BP 119/73
[2020-12-29 11:38] LABS: BASOPHILS % 0.6 % (0.0-2.0); EOSINOPHILS % 1.1 % (0.0-5.0); HEMATOCRIT. 39.2 % (36.0-48.0); HEMOGLOBIN. 12.7 g/dL (12.0-16.0); LYMPHOCYTES % 33.2 % (20.0-50.0); MEAN CORPUSCULAR HEMOGLOBIN 29.8 pg (28.0-32.0); MEAN CORPUSCULAR VOLUME 92.2 fL (81.0-99.0); MEAN PLATELET VOLUME 8.5 fl (7.4-10.4); MONOCYTES % 6.7 % (2.0-8.0); NEUTROPHILS % 58.4 % (40.0-76.0); PLATELET 225 x1000/uL (130-400); RED BLOOD CELL COUNT 4.25 mill/uL (4.2-5.4)
[2020-12-29 11:43] LABS: CHLORIDE 106 mEq/L (98-107)
[2020-12-29 11:46] LABS: PROTHROMBIN TIME 10.6 sec (9.6-11.0)
[2020-12-29 13:49] LABS: CLARITY URINE CLEAR (CLEAR); COLOR URINE YELLOW (YELLOW); KETONES URINE NEGATIVE (NEGATIVE); LEUKOCYTE ESTERASE URINE NEGATIVE (NEGATIVE); NITRITE URINE NEGATIVE (NEGATIVE); OCCULT BLOOD URINE NEGATIVE (NEGATIVE); PH URINE 5.5 (4.5-8.0); PROTEIN URINE NEGATIVE (NEGATIVE); SPECIFIC GRAVITY URINE 1.009 (1.005-1.030); UROBILINOGEN URINE 0.2 E.U./dL (0.2-1.0)
== END 2020-12-29 14:53 | disposition home or self-care (01) ==
LOC: ER 09:03
DX: R10.84 Generalized abdominal pain (principal); E11.9 Type 2 diabetes mellitus without complications; I10 Essential (primary) hypertension; E78.00 Pure hypercholesterolemia, unspecified; Z79.84 Long term (current) use of oral hypoglycemic drugs; Z88.0 Allergy status to penicillin
CPT/HCPCS: 36415; 80053; 81003; 85025; 99283

== ENCOUNTER 2021-01-03 07:14 | Emergency (ER) | payer OTHER ==
[~2021-01-03] VITALS: Ht 165.1 cm; Wt 76.0 kg
[2021-01-03 07:17] VITALS: BP 132/80
[2021-01-03] MEDS ORDERED: ACETAMINOPHEN 325MG TABLET PO ONE (08:30)
== END 2021-01-03 08:46 | disposition left against medical advice (07) ==
LOC: ER 07:14
DX: S90.425A Blister (nonthermal), left lesser toe(s), initial encounter (principal); Z88.0 Allergy status to penicillin; Z79.899 Other long term (current) drug therapy; X58.XXXA Exposure to other specified factors, initial encounter; Y93.89 Activity, other specified; Y92.89 Other specified places as the place of occurrence of the external cause; Y99.8 Other external cause status
CPT/HCPCS: 99282

== ENCOUNTER 2021-02-01 08:00 | Emergency (ER) | payer MEDICAID, OTHER ==
[~2021-02-01] VITALS: Ht 165.1 cm; Wt 73.0 kg
[2021-02-01 09:14] VITALS: BP 141/86
[2021-02-01] MEDS ORDERED: KETOROLAC 60MG/2ML VIAL IM ONE (09:15)
[2021-02-01] MEDS ORDERED: TOPUD PO (09:42)
== END 2021-02-01 09:55 | disposition home or self-care (01) ==
LOC: ER 08:00
DX: R07.89 Other chest pain (principal); F41.9 Anxiety disorder, unspecified; E78.00 Pure hypercholesterolemia, unspecified; I10 Essential (primary) hypertension; E11.9 Type 2 diabetes mellitus without complications; Z88.0 Allergy status to penicillin; X50.0XXA Overexertion from strenuous movement or load, initial encounter; Y93.89 Activity, other specified; Y92.018 Other place in single-family (private) house as the place of occurrence of the external cause
CPT/HCPCS: 71045; 93005; 96372; 99283; J1885

== ENCOUNTER 2021-02-08 21:15 | Emergency (ER) | payer OTHER ==
[~2021-02-08] VITALS: Ht 162.6 cm; Wt 73.0 kg
[~2021-02-08 21:15] MED LIST changes: +TOPUD PO
[2021-02-09] MEDS ORDERED: LIDOCAINE HCL 1% 20ML VIAL (Pyxis) INJ INFIL ONE (00:15)
[2021-02-09] MEDS ORDERED: DOXYCYCLINE HYCLATE 100MG CAPSULE PO ONE (00:15)
[2021-02-09] MEDS ORDERED: CEFTRIAXONE SODIUM 500 MG/VIAL IM ONE (00:15)
[2021-02-09 00:30] LABS: CLARITY URINE CLEAR (CLEAR); COLOR URINE YELLOW (YELLOW); KETONES URINE NEGATIVE (NEGATIVE); LEUKOCYTE ESTERASE URINE NEGATIVE (NEGATIVE); NITRITE URINE NEGATIVE (NEGATIVE); OCCULT BLOOD URINE NEGATIVE (NEGATIVE); PH URINE 6.5 (4.5-8.0); PROTEIN URINE NEGATIVE (NEGATIVE); SPECIFIC GRAVITY URINE 1.019 (1.005-1.030); UROBILINOGEN URINE 0.2 E.U./dL (0.2-1.0)
[2021-02-09] MEDS ORDERED: LIDOCAINE HCL 1% 10 MG/ML 10ML VIAL IJ NR (01:00)
[2021-02-09] MEDS ORDERED: METR-167 MT (01:29)
[2021-02-09] MEDS ORDERED: DOXY100C5 MT (01:29)
[2021-02-09] MEDS ORDERED: DIF15 MT (01:47)
[2021-02-09 02:00] VITALS: BP 132/75
[2021-02-12 05:11] LABS: NEISSERIA GONORRHOEAE NAA Negative (Negative)
== END 2021-02-09 02:04 | disposition home or self-care (01) ==
LOC: ER 21:15
DX: N76.0 Acute vaginitis (principal); Z20.2 Contact with and (suspected) exposure to infections with a predominantly sexual mode of transmission; I10 Essential (primary) hypertension; Z88.0 Allergy status to penicillin
CPT/HCPCS: 81003; 81025; 87210; 87491; 87591; 96372; 99283; J0696; J3490

== ENCOUNTER 2021-02-25 20:16 | Emergency (ER) | payer OTHER ==
[~2021-02-25] VITALS: Ht 162.6 cm; Wt 77.0 kg
[~2021-02-25 20:16] MED LIST changes: +DIF15 MT; +DOXY100C5 MT; +METR-167 MT
[2021-02-25 20:53] VITALS: BP 141/91
[2021-02-25] MEDS ORDERED: ACET-2708 MT (21:18)
[2021-02-25] MEDS ORDERED: ALBU6.7H9 INH (21:18)
== END 2021-02-25 21:39 | disposition home or self-care (01) ==
LOC: ER 20:31
DX: J06.9 Acute upper respiratory infection, unspecified (principal); J45.909 Unspecified asthma, uncomplicated; I10 Essential (primary) hypertension; E78.00 Pure hypercholesterolemia, unspecified; Z88.0 Allergy status to penicillin
CPT/HCPCS: 99283

== ENCOUNTER → 2021-02-27 | Emergency (ER) | payer OTHER ==
[~2021-02-27] VITALS: Ht 165.1 cm; Wt 77.0 kg
[~2021-02-27] MED LIST changes: +ALBU6.7H9 INH
[2021-02-27 12:45] VITALS: BP 142/84
== END | disposition home or self-care (01) ==
LOC: ER 12:17
DX: R53.1 Weakness (principal); I10 Essential (primary) hypertension; E78.00 Pure hypercholesterolemia, unspecified; J45.909 Unspecified asthma, uncomplicated; Z88.0 Allergy status to penicillin
CPT/HCPCS: 99281

== ENCOUNTER 2021-03-15 12:14 | Emergency (ER) | payer OTHER ==
[~2021-03-15] VITALS: Ht 160 cm; Wt 76.0 kg
[2021-03-15 14:07] VITALS: BP 146/89
== END 2021-03-15 14:10 | disposition home or self-care (01) ==
LOC: ER 12:14
DX: F10.980 Alcohol use, unspecified with alcohol-induced anxiety disorder (principal); R42 Dizziness and giddiness; Y90.9 Presence of alcohol in blood, level not specified; I10 Essential (primary) hypertension; J45.909 Unspecified asthma, uncomplicated; E78.00 Pure hypercholesterolemia, unspecified; Z79.899 Other long term (current) drug therapy; Z79.51 Long term (current) use of inhaled steroids
CPT/HCPCS: 82962; 93005; 99283

== ENCOUNTER 2021-04-09 15:37 | Emergency (ER) | payer OTHER ==
[~2021-04-09] VITALS: Ht 162.6 cm; Wt 76.0 kg
[2021-04-09 15:46] VITALS: BP 143/94
== END 2021-04-09 16:01 | disposition home or self-care (01) ==
LOC: ER 15:37
DX: I10 Essential (primary) hypertension (principal); F41.9 Anxiety disorder, unspecified; F10.10 Alcohol abuse, uncomplicated; J45.909 Unspecified asthma, uncomplicated; E78.00 Pure hypercholesterolemia, unspecified; Z79.899 Other long term (current) drug therapy; Z88.0 Allergy status to penicillin
CPT/HCPCS: 93005; 99283

== ENCOUNTER 2021-04-14 12:27 | Emergency (ER) | payer OTHER ==
[~2021-04-14] VITALS: Ht 154.9 cm; Wt 76.0 kg
[2021-04-14] MEDS ORDERED: SIME125C MT (15:07)
[2021-04-14 15:13] VITALS: BP 123/95
[2021-04-14] MEDS ORDERED: SIMETHICONE 80MG TABLET CHEW PO PRN (15:15)
== END 2021-04-14 15:15 | disposition home or self-care (01) ==
LOC: ER 12:27
DX: R07.81 Pleurodynia (principal); J45.909 Unspecified asthma, uncomplicated; E78.00 Pure hypercholesterolemia, unspecified; I10 Essential (primary) hypertension; Z88.0 Allergy status to penicillin; Z79.899 Other long term (current) drug therapy
CPT/HCPCS: 71101; 99283

== ENCOUNTER 2021-04-15 15:02 | Emergency (ER) | payer OTHER ==
[~2021-04-15] VITALS: Ht 154.9 cm; Wt 77.0 kg
[~2021-04-15 15:02] MED LIST changes: +SIME125C MT
[2021-04-15 18:07] VITALS: BP 126/75
== END 2021-04-15 18:15 | disposition home or self-care (01) ==
LOC: ER 15:02
DX: R60.0 Localized edema (principal); I10 Essential (primary) hypertension; E78.00 Pure hypercholesterolemia, unspecified; E11.9 Type 2 diabetes mellitus without complications; J45.909 Unspecified asthma, uncomplicated; Z88.0 Allergy status to penicillin
CPT/HCPCS: 82962; 93971; 99284

== ENCOUNTER 2021-04-30 16:32 | Emergency (ER) | payer OTHER ==
[~2021-04-30] VITALS: Ht 165.1 cm; Wt 79.0 kg
[2021-04-30 17:52] VITALS: BP 153/87
== END 2021-04-30 17:54 | disposition home or self-care (01) ==
LOC: ER 16:32
DX: S30.811A Abrasion of abdominal wall, initial encounter (principal); X58.XXXA Exposure to other specified factors, initial encounter; Y93.89 Activity, other specified; Y92.89 Other specified places as the place of occurrence of the external cause; Y99.8 Other external cause status; J45.909 Unspecified asthma, uncomplicated; E11.9 Type 2 diabetes mellitus without complications; E78.00 Pure hypercholesterolemia, unspecified; I10 Essential (primary) hypertension; Z79.899 Other long term (current) drug therapy
CPT/HCPCS: 71045; 99283

== ENCOUNTER 2021-05-13 14:20 | Emergency (ER) | payer OTHER ==
[~2021-05-13] VITALS: Ht 160 cm; Wt 73.0 kg
[2021-05-13] MEDS ORDERED: ACET-2708 MT (14:58)
[2021-05-13] MEDS ORDERED: ACETAMINOPHEN 500MG TABLET PO ONE (15:00)
[2021-05-13 15:04] VITALS: BP 135/76
== END 2021-05-13 15:05 | disposition home or self-care (01) ==
LOC: ER 14:20
DX: S09.8XXA Other specified injuries of head, initial encounter (principal); R11.10 Vomiting, unspecified; E78.00 Pure hypercholesterolemia, unspecified; I10 Essential (primary) hypertension; E11.9 Type 2 diabetes mellitus without complications; J45.909 Unspecified asthma, uncomplicated; Z79.84 Long term (current) use of oral hypoglycemic drugs; Z88.0 Allergy status to penicillin; W22.8XXA Striking against or struck by other objects, initial encounter; Y93.89 Activity, other specified; Y92.018 Other place in single-family (private) house as the place of occurrence of the external cause
CPT/HCPCS: 99282

== ENCOUNTER 2021-05-27 14:06 | Emergency (ER) | payer OTHER ==
[~2021-05-27] VITALS: Ht 162.6 cm; Wt 82.0 kg
[2021-05-27 14:15] VITALS: BP 148/85
[2021-05-27] MEDS ORDERED: ALBU05 NEB (14:19)
[2021-05-27] MEDS ORDERED: IPRATROPIUM/ALBUTEROL 0.5-3(2.5)MG/3ML NEB HHN ONE (14:30)
== END 2021-05-27 14:42 | disposition home or self-care (01) ==
LOC: ER 14:14
DX: J45.901 Unspecified asthma with (acute) exacerbation (principal); I10 Essential (primary) hypertension; E11.9 Type 2 diabetes mellitus without complications; E78.00 Pure hypercholesterolemia, unspecified; Z79.84 Long term (current) use of oral hypoglycemic drugs; Z88.0 Allergy status to penicillin
CPT/HCPCS: 71045; 99283

== ENCOUNTER 2021-06-14 10:12 | Emergency (ER) | payer OTHER ==
[~2021-06-14] VITALS: Ht 167.6 cm; Wt 78.0 kg
[~2021-06-14 10:12] MED LIST changes: +ALBU05 NEB
[2021-06-14 10:24] VITALS: BP 146/94
[2021-06-14] MEDS ORDERED: TOPUD PO (11:54)
[2021-06-14] MEDS ORDERED: METO-293 MT (11:54)
[2021-06-14] MEDS ORDERED: METOCLOPRAMIDE HCL 10MG TABLET PO ONE (12:00)
== END 2021-06-14 12:14 | disposition home or self-care (01) ==
LOC: ER 10:12
DX: G43.909 Migraine, unspecified, not intractable, without status migrainosus (principal); I10 Essential (primary) hypertension; E11.9 Type 2 diabetes mellitus without complications; E78.00 Pure hypercholesterolemia, unspecified; J45.909 Unspecified asthma, uncomplicated; Z88.6 Allergy status to analgesic agent; Z88.0 Allergy status to penicillin
CPT/HCPCS: 99283; J8597

== ENCOUNTER 2021-06-22 08:17 | Emergency (ER) | payer OTHER ==
[~2021-06-22] VITALS: Ht 152.4 cm; Wt 77.0 kg
[~2021-06-22 08:17] MED LIST changes: +METO-293 MT
[2021-06-22 08:30] VITALS: BP 136/85
== END 2021-06-22 09:28 | disposition home or self-care (01) ==
LOC: ER 08:44
DX: S70.11XA Contusion of right thigh, initial encounter (principal); E11.9 Type 2 diabetes mellitus without complications; F41.9 Anxiety disorder, unspecified; J45.909 Unspecified asthma, uncomplicated; E78.00 Pure hypercholesterolemia, unspecified; Z88.0 Allergy status to penicillin; Z79.4 Long term (current) use of insulin; Z88.6 Allergy status to analgesic agent; W22.8XXA Striking against or struck by other objects, initial encounter; Y93.89 Activity, other specified; Y92.89 Other specified places as the place of occurrence of the external cause
CPT/HCPCS: 99281

== ENCOUNTER 2021-06-26 11:17 | Emergency (ER) | payer OTHER ==
[~2021-06-26] VITALS: Ht 152.4 cm; Wt 77.0 kg
[2021-06-26] MEDS ORDERED: METHOCARBAMOL 500MG TABLET PO ONE (11:30)
[2021-06-26] MEDS ORDERED: ACETAMINOPHEN 325MG TABLET PO ONE (11:30)
[2021-06-26] MEDS ORDERED: LIDO1ADH5 TP (12:06)
[2021-06-26] MEDS ORDERED: METH-773 MT (12:06)
[2021-06-26 12:15] VITALS: BP 146/66
== END 2021-06-26 12:16 | disposition home or self-care (01) ==
LOC: ER 11:17
DX: S16.1XXA Strain of muscle, fascia and tendon at neck level, initial encounter (principal); E11.9 Type 2 diabetes mellitus without complications; I10 Essential (primary) hypertension; J45.909 Unspecified asthma, uncomplicated; Z79.84 Long term (current) use of oral hypoglycemic drugs; Z88.6 Allergy status to analgesic agent; Z88.0 Allergy status to penicillin; X58.XXXA Exposure to other specified factors, initial encounter; Y93.89 Activity, other specified; Y92.018 Other place in single-family (private) house as the place of occurrence of the external cause
CPT/HCPCS: 99283

== ENCOUNTER 2021-07-10 09:41 | Emergency (ER) | payer OTHER ==
[~2021-07-10] VITALS: Ht 162.6 cm; Wt 78.0 kg
[~2021-07-10 09:41] MED LIST changes: +LIDO1ADH5 TP; +METH-773 MT
[2021-07-10 11:07] LABS: BASOPHILS % 0.8 % (0.0-2.0); EOSINOPHILS % 1.5 % (0.0-5.0); HEMATOCRIT. 38.9 % (36.0-48.0); HEMOGLOBIN. 12.6 g/dL (12.0-16.0); LYMPHOCYTES % 35.9 % (20.0-50.0); MEAN CORPUSCULAR HEMOGLOBIN 29.3 pg (28.0-32.0); MEAN CORPUSCULAR VOLUME 90.8 fL (81.0-99.0); MEAN PLATELET VOLUME 8.9 fl (7.4-10.4); MONOCYTES % 6.4 % (2.0-8.0); NEUTROPHILS % 55.4 % (40.0-76.0); PLATELET 213 x1000/uL (130-400); RED BLOOD CELL COUNT 4.29 mill/uL (4.2-5.4); RED CELL DISTRIBUTION WIDTH 13.4 % (11.6-14.6)
[2021-07-10 11:14] LABS: CHLORIDE 107 mEq/L (98-107)
[2021-07-10 11:18] LABS: CLARITY URINE CLEAR (CLEAR); COLOR URINE YELLOW (YELLOW); KETONES URINE NEGATIVE (NEGATIVE); LEUKOCYTE ESTERASE URINE NEGATIVE (NEGATIVE); NITRITE URINE NEGATIVE (NEGATIVE); OCCULT BLOOD URINE NEGATIVE (NEGATIVE); PH URINE 6.5 (4.5-8.0); PROTEIN URINE NEGATIVE (NEGATIVE); SPECIFIC GRAVITY URINE 1.014 (1.005-1.030); UROBILINOGEN URINE 0.2 E.U./dL (0.2-1.0)
[2021-07-10 11:59] VITALS: BP 146/66
== END 2021-07-10 12:03 | disposition home or self-care (01) ==
LOC: ER 09:41
DX: Z00.00 Encounter for general adult medical examination without abnormal findings (principal); E11.9 Type 2 diabetes mellitus without complications; J45.909 Unspecified asthma, uncomplicated; E78.00 Pure hypercholesterolemia, unspecified; I10 Essential (primary) hypertension; Z79.84 Long term (current) use of oral hypoglycemic drugs; Z88.6 Allergy status to analgesic agent; Z88.0 Allergy status to penicillin
CPT/HCPCS: 36415; 80053; 81003; 85025; 99283

== ENCOUNTER 2021-07-14 20:19 | Emergency (ER) | payer OTHER ==
[~2021-07-14] VITALS: Ht 152.4 cm; Wt 82.4 kg
[2021-07-15 03:33] VITALS: BP 138/99
== END 2021-07-15 03:34 | disposition home or self-care (01) ==
LOC: ER 20:19
DX: R20.0 Anesthesia of skin (principal); J45.909 Unspecified asthma, uncomplicated; E11.9 Type 2 diabetes mellitus without complications; E78.00 Pure hypercholesterolemia, unspecified; I10 Essential (primary) hypertension; Z88.6 Allergy status to analgesic agent; Z88.0 Allergy status to penicillin
CPT/HCPCS: 82962; 93005; 99283

== ENCOUNTER 2021-07-23 08:13 | Emergency (ER) | payer OTHER ==
[~2021-07-23] VITALS: Ht 152.4 cm; Wt 82.0 kg
[2021-07-23 08:16] VITALS: BP 137/80
[2021-07-23] MEDS ORDERED: SODIUM CHLORIDE 0.9% 1,000 ML IV ONE (08:30)
[2021-07-23 09:31] LABS: BASOPHILS % 0.6 % (0.0-2.0); EOSINOPHILS % 1.4 % (0.0-5.0); HEMATOCRIT. 37.2 % (36.0-48.0); HEMOGLOBIN. 12.3 g/dL (12.0-16.0); LYMPHOCYTES % 42.5 % (20.0-50.0); MEAN CORPUSCULAR HEMOGLOBIN 29.8 pg (28.0-32.0); MEAN CORPUSCULAR VOLUME 89.9 fL (81.0-99.0); MEAN PLATELET VOLUME 9.1 fl (7.4-10.4); MONOCYTES % 7.2 % (2.0-8.0); NEUTROPHILS % 48.3 % (40.0-76.0); PLATELET 186 x1000/uL (130-400); RED BLOOD CELL COUNT 4.13 mill/uL (4.2-5.4); RED CELL DISTRIBUTION WIDTH 13.6 % (11.6-14.6)
[2021-07-23 09:37] LABS: CHLORIDE 108 mEq/L (98-107)
[2021-07-23 10:22] LABS: CLARITY URINE CLEAR (CLEAR); COLOR URINE YELLOW (YELLOW); KETONES URINE NEGATIVE (NEGATIVE); LEUKOCYTE ESTERASE URINE NEGATIVE (NEGATIVE); NITRITE URINE NEGATIVE (NEGATIVE); OCCULT BLOOD URINE NEGATIVE (NEGATIVE); PH URINE 6.5 (4.5-8.0); PROTEIN URINE NEGATIVE (NEGATIVE); SPECIFIC GRAVITY URINE 1.006 (1.005-1.030); UROBILINOGEN URINE 0.2 E.U./dL (0.2-1.0)
== END 2021-07-23 11:57 | disposition home or self-care (01) ==
LOC: ER 08:45
DX: E86.0 Dehydration (principal); R63.1 Polydipsia; E11.9 Type 2 diabetes mellitus without complications; J45.909 Unspecified asthma, uncomplicated; E78.00 Pure hypercholesterolemia, unspecified; I10 Essential (primary) hypertension; Z79.899 Other long term (current) drug therapy; Z88.0 Allergy status to penicillin
CPT/HCPCS: 36415; 80053; 81003; 82962; 85025; 96360; 99283; J7030

== ENCOUNTER 2021-07-25 12:14 | Emergency (ER) | payer MEDICAID, OTHER ==
[~2021-07-25] VITALS: Ht 152.4 cm; Wt 81.0 kg
[2021-07-25 17:39] VITALS: BP 165/93
== END 2021-07-25 17:40 | disposition home or self-care (01) ==
LOC: ER 12:14
DX: R53.83 Other fatigue (principal); E11.9 Type 2 diabetes mellitus without complications; I10 Essential (primary) hypertension; J45.909 Unspecified asthma, uncomplicated; E78.00 Pure hypercholesterolemia, unspecified; Z79.899 Other long term (current) drug therapy; Z88.0 Allergy status to penicillin; Z88.6 Allergy status to analgesic agent
CPT/HCPCS: 93005; 99283

== ENCOUNTER 2021-07-30 15:22 | Emergency (ER) | payer MEDICAID, OTHER ==
[~2021-07-30] VITALS: Ht 152.4 cm; Wt 77.0 kg
[2021-07-30 15:37] VITALS: BP 120/79
[2021-07-30] MEDS ORDERED: TOPUD MT (16:48)
== END 2021-07-30 16:57 | disposition home or self-care (01) ==
LOC: ER 15:22
DX: M25.512 Pain in left shoulder (principal); M79.18 Myalgia, other site; J45.909 Unspecified asthma, uncomplicated; E11.9 Type 2 diabetes mellitus without complications; E78.00 Pure hypercholesterolemia, unspecified; I10 Essential (primary) hypertension; Z79.899 Other long term (current) drug therapy
CPT/HCPCS: 99282

== ENCOUNTER 2021-08-07 09:24 | Emergency (ER) | payer MEDICAID ==
[~2021-08-07] VITALS: Ht 167.6 cm; Wt 75.0 kg
[2021-08-07 09:47] VITALS: BP 127/78
[2021-08-07] MEDS ORDERED: TOPUD PO (11:57)
== END 2021-08-07 12:12 | disposition home or self-care (01) ==
LOC: ER 09:24
DX: M79.674 Pain in right toe(s) (principal); I10 Essential (primary) hypertension; J45.909 Unspecified asthma, uncomplicated; E11.9 Type 2 diabetes mellitus without complications; E78.00 Pure hypercholesterolemia, unspecified; Z79.84 Long term (current) use of oral hypoglycemic drugs; Z88.6 Allergy status to analgesic agent; Z88.0 Allergy status to penicillin; W22.03XA Walked into furniture, initial encounter; Y93.89 Activity, other specified; Y92.018 Other place in single-family (private) house as the place of occurrence of the external cause
CPT/HCPCS: 73630; 99283

== ENCOUNTER 2021-09-04 08:53 | Emergency (ER) | payer MEDICAID ==
[~2021-09-04] VITALS: Ht 172.7 cm; Wt 77.0 kg
[~2021-09-04 08:53] MED LIST changes: +CLIN-194 MT; -CLIN300C12 MT
[2021-09-04 08:55] VITALS: BP 139/80
[2021-09-04 09:53] LABS: CHLORIDE 106 mEq/L (98-107)
[2021-09-04 10:09] LABS: BASOPHILS % 0.7 % (0.0-2.0); EOSINOPHILS % 1.6 % (0.0-5.0); HEMATOCRIT. 36.7 % (36.0-48.0); HEMOGLOBIN. 11.8 g/dL (12.0-16.0); LYMPHOCYTES % 41.5 % (20.0-50.0); MEAN CORPUSCULAR HEMOGLOBIN 29.1 pg (28.0-32.0); MEAN CORPUSCULAR VOLUME 90.3 fL (81.0-99.0); MEAN PLATELET VOLUME 8.7 fl (7.4-10.4); MONOCYTES % 6.2 % (2.0-8.0); PLATELET 189 x1000/uL (130-400); RED BLOOD CELL COUNT 4.06 mill/uL (4.2-5.4); RED CELL DISTRIBUTION WIDTH 13.7 % (11.6-14.6)
== END 2021-09-04 10:48 | disposition home or self-care (01) ==
LOC: ER 10:38
DX: R42 Dizziness and giddiness (principal); E78.00 Pure hypercholesterolemia, unspecified; E11.9 Type 2 diabetes mellitus without complications; J45.909 Unspecified asthma, uncomplicated; Z88.6 Allergy status to analgesic agent; Z88.0 Allergy status to penicillin
CPT/HCPCS: 36415; 80053; 85025; 93005; 99284

== ENCOUNTER 2021-09-06 10:43 | Emergency (ER) | payer MEDICAID, OTHER ==
[~2021-09-06] VITALS: Ht 160 cm; Wt 78.0 kg
[2021-09-06 11:01] VITALS: BP 128/86
[2021-09-06] MEDS ORDERED: DIPHENHYDRAMINE 25MG CAPSULE PO ONE (14:15)
== END 2021-09-06 14:18 | disposition home or self-care (01) ==
LOC: ER 10:43
DX: S40.862A Insect bite (nonvenomous) of left upper arm, initial encounter (principal); E78.00 Pure hypercholesterolemia, unspecified; J45.909 Unspecified asthma, uncomplicated; I10 Essential (primary) hypertension; Z88.6 Allergy status to analgesic agent; Z88.0 Allergy status to penicillin; Z79.84 Long term (current) use of oral hypoglycemic drugs; W57.XXXA Bitten or stung by nonvenomous insect and other nonvenomous arthropods, initial encounter; Y93.89 Activity, other specified; Y92.018 Other place in single-family (private) house as the place of occurrence of the external cause
CPT/HCPCS: 99282; Q0163

== ENCOUNTER 2021-09-11 12:31 | Emergency (ER) | payer OTHER ==
[~2021-09-11] VITALS: Ht 172.7 cm; Wt 81.0 kg
[2021-09-11 12:49] VITALS: BP 130/74
[2021-09-11 14:30] LABS: HEMATOCRIT 36.8 % (36.0-48.0); MEAN CORPUSCULAR HEMOGLOBIN 29.4 pg (28.0-32.0); MEAN CORPUSCULAR VOLUME 90.5 fL (81.0-99.0); PLATELET 221 x1000/uL (130-400); RED BLOOD CELL COUNT 4.07 mill/uL (4.2-5.4); RED CELL DISTRIBUTION WIDTH 13.5 % (11.6-14.6)
[2021-09-11 14:38] LABS: CHLORIDE 105 mEq/L (98-107)
== END 2021-09-11 15:22 | disposition home or self-care (01) ==
LOC: ER 12:31
DX: R53.83 Other fatigue (principal); I10 Essential (primary) hypertension; E11.9 Type 2 diabetes mellitus without complications
CPT/HCPCS: 36415; 80048; 84443; 85027; 99283

== ENCOUNTER 2021-09-26 09:21 | Emergency (ER) | payer OTHER ==
[~2021-09-26] VITALS: Ht 167.6 cm; Wt 91.0 kg
[2021-09-26 09:38] VITALS: BP 136/82
[2021-09-26] MEDS ORDERED: MAGNESIUM/ALUMINUM HYDROXIDE/SIMETHICONE 30ML UDC PO STA (10:02)
[2021-09-26] MEDS ORDERED: VISCOUS LIDOCAINE 2% 15 ML UDC PO STA (10:02)
[2021-09-26 10:36] LABS: BASOPHILS % 0.7 % (0.0-2.0); EOSINOPHILS % 1.4 % (0.0-5.0); HEMATOCRIT. 38.8 % (36.0-48.0); HEMOGLOBIN. 12.6 g/dL (12.0-16.0); LYMPHOCYTES % 34.9 % (20.0-50.0); MEAN CORPUSCULAR HEMOGLOBIN 29.2 pg (28.0-32.0); MEAN CORPUSCULAR VOLUME 89.9 fL (81.0-99.0); MEAN PLATELET VOLUME 8.8 fl (7.4-10.4); MONOCYTES % 6.4 % (2.0-8.0); NEUTROPHILS % 56.6 % (40.0-76.0); PLATELET 202 x1000/uL (130-400); RED BLOOD CELL COUNT 4.31 mill/uL (4.2-5.4); RED CELL DISTRIBUTION WIDTH 14.1 % (11.6-14.6)
[2021-09-26 10:51] LABS: CHLORIDE 107 mEq/L (98-107)
== END 2021-09-26 11:20 | disposition home or self-care (01) ==
LOC: ER 09:21
DX: R07.89 Other chest pain (principal); F41.9 Anxiety disorder, unspecified; E78.00 Pure hypercholesterolemia, unspecified; J45.909 Unspecified asthma, uncomplicated; E11.9 Type 2 diabetes mellitus without complications; Z88.0 Allergy status to penicillin; Z88.6 Allergy status to analgesic agent; Z79.899 Other long term (current) drug therapy
CPT/HCPCS: 36415; 80053; 84484; 85025; 99283; 99284

== ENCOUNTER 2021-10-09 09:58 | Emergency (ER) | payer OTHER ==
[~2021-10-09] VITALS: Ht 167.6 cm; Wt 88.0 kg
[2021-10-09 10:11] VITALS: BP 150/95
[2021-10-09] MEDS ORDERED: HYDROCODONE/ACETAMINOPHEN 5/325MG TABLET PO ONE (12:15)
[2021-10-09] MEDS ORDERED: HYDR-4001 MT (13:25)
== END 2021-10-09 13:53 | disposition home or self-care (01) ==
LOC: ER 09:58
DX: R51.9 Headache, unspecified (principal); I10 Essential (primary) hypertension; E11.9 Type 2 diabetes mellitus without complications; J45.909 Unspecified asthma, uncomplicated; E78.00 Pure hypercholesterolemia, unspecified; Z88.6 Allergy status to analgesic agent; Z88.0 Allergy status to penicillin
CPT/HCPCS: 99284

== ENCOUNTER 2021-10-11 12:06 | Emergency (ER) | payer OTHER ==
[~2021-10-11] VITALS: Ht 167.6 cm; Wt 82.0 kg
[~2021-10-11 12:06] MED LIST changes: +HYDR-4001 MT
[2021-10-11] MEDS ORDERED: SODIUM CHLORIDE 0.9% 1,000 ML IV ONE (12:15)
[2021-10-11 12:34] LABS: BASOPHILS % 0.4 % (0.0-2.0); EOSINOPHILS % 1.6 % (0.0-5.0); HEMATOCRIT. 38.6 % (36.0-48.0); HEMOGLOBIN. 12.7 g/dL (12.0-16.0); MEAN CORPUSCULAR HEMOGLOBIN 29.3 pg (28.0-32.0); MEAN CORPUSCULAR VOLUME 89.2 fL (81.0-99.0); MEAN PLATELET VOLUME 8.4 fl (7.4-10.4); MONOCYTES % 5.7 % (2.0-8.0); NEUTROPHILS % 57.3 % (40.0-76.0); PLATELET 206 x1000/uL (130-400); RED BLOOD CELL COUNT 4.33 mill/uL (4.2-5.4); RED CELL DISTRIBUTION WIDTH 13.9 % (11.6-14.6)
[2021-10-11 12:51] LABS: CHLORIDE 106 mEq/L (98-107)
[2021-10-11] MEDS ORDERED: MECL-159 MT (14:22)
[2021-10-11 14:43] VITALS: BP 136/76
== END 2021-10-11 14:45 | disposition home or self-care (01) ==
LOC: ER 12:06
DX: F41.1 Generalized anxiety disorder (principal); R42 Dizziness and giddiness; I10 Essential (primary) hypertension; E78.00 Pure hypercholesterolemia, unspecified; E11.9 Type 2 diabetes mellitus without complications; J45.909 Unspecified asthma, uncomplicated; Z88.6 Allergy status to analgesic agent; Z88.0 Allergy status to penicillin
CPT/HCPCS: 36415; 80053; 84484; 85025; 96360; 96361; 99283; J7030

== ENCOUNTER 2021-10-30 07:06 | Emergency (ER) | payer OTHER ==
[~2021-10-30] VITALS: Ht 152.4 cm; Wt 76.0 kg
[~2021-10-30 07:06] MED LIST changes: +MECL-159 MT
[2021-10-30 07:32] VITALS: BP 115/74
[2021-10-30] MEDS ORDERED: DIPH28.34 TP (08:05)
[2021-11-02] MEDS ORDERED: GABA-529 MT (14:23)
== END 2021-10-30 08:20 | disposition home or self-care (01) ==
LOC: ER 07:06
DX: L50.9 Urticaria, unspecified (principal); I10 Essential (primary) hypertension; E78.00 Pure hypercholesterolemia, unspecified; E11.9 Type 2 diabetes mellitus without complications; J45.909 Unspecified asthma, uncomplicated; Z88.6 Allergy status to analgesic agent; Z88.0 Allergy status to penicillin
CPT/HCPCS: 99282

== ENCOUNTER → 2021-11-02 | Emergency (ER) | payer OTHER ==
[~2021-11-02] MED LIST changes: +ACETAMINOPHEN 325MG TABLET ONE; +DIPH28.34 TP; +GABA-529 MT; +GABAPENTIN 100MG CAPSULE ONE
== END | disposition home or self-care (01) ==
LOC: ER 07:57
DX: G62.9 Polyneuropathy, unspecified (principal); E11.9 Type 2 diabetes mellitus without complications; I10 Essential (primary) hypertension; J45.909 Unspecified asthma, uncomplicated; E78.00 Pure hypercholesterolemia, unspecified; Z88.6 Allergy status to analgesic agent; Z88.0 Allergy status to penicillin
CPT/HCPCS: 73630; 99283

== ENCOUNTER 2021-11-16 08:22 | Emergency (ER) | payer OTHER ==
[~2021-11-16] VITALS: Ht 154.9 cm; Wt 67.0 kg
[~2021-11-16 08:22] MED LIST changes: -ACETAMINOPHEN 325MG TABLET ONE; -GABAPENTIN 100MG CAPSULE ONE
[2021-11-16 09:17] LABS: BASOPHILS % 0.7 % (0.0-2.0); EOSINOPHILS % 1.6 % (0.0-5.0); HEMATOCRIT. 37.5 % (36.0-48.0); HEMOGLOBIN. 12.1 g/dL (12.0-16.0); LYMPHOCYTES % 39.3 % (20.0-50.0); MEAN CORPUSCULAR HEMOGLOBIN 29.2 pg (28.0-32.0); MEAN CORPUSCULAR VOLUME 90.8 fL (81.0-99.0); MEAN PLATELET VOLUME 8.8 fl (7.4-10.4); MONOCYTES % 7.5 % (2.0-8.0); NEUTROPHILS % 50.9 % (40.0-76.0); PLATELET 202 x1000/uL (130-400); RED BLOOD CELL COUNT 4.14 mill/uL (4.2-5.4); RED CELL DISTRIBUTION WIDTH 14.4 % (11.6-14.6)
[2021-11-16 09:26] LABS: PROTHROMBIN TIME 10.9 sec (9.6-11.0)
[2021-11-16 09:28] LABS: CHLORIDE 108 mEq/L (98-107)
[2021-11-16] MEDS: ONDANSETRON HCL 4MG/2ML INJ IV STA (09:29)
[2021-11-16] MEDS: SODIUM CHLORIDE 0.9% 1,000 ML IV ONE (09:30)
[2021-11-16 09:35] VITALS: BP 128/76
[2021-11-16 09:35] LABS: ETHANOL BLOOD < 10 mg/dL
[2021-11-16 10:39] LABS: CLARITY URINE CLEAR (CLEAR); COLOR URINE YELLOW (YELLOW); KETONES URINE NEGATIVE (NEGATIVE); LEUKOCYTE ESTERASE URINE TRACE (NEGATIVE); NITRITE URINE NEGATIVE (NEGATIVE); OCCULT BLOOD URINE NEGATIVE (NEGATIVE); PH URINE 6.5 (4.5-8.0); PROTEIN URINE NEGATIVE (NEGATIVE); SPECIFIC GRAVITY URINE 1.011 (1.005-1.030); UROBILINOGEN URINE 0.2 E.U./dL (0.2-1.0)
[2021-11-16 11:00] LABS: *AMPHETAMINES SCREEN URINE NEGATIVE (NEGATIVE); *BARBITURATES SCREEN URINE NEGATIVE (NEGATIVE); *BENZODIAZEPINES SCREEN URINE NEGATIVE (NEGATIVE); *COCAINE SCREEN URINE NEGATIVE (NEGATIVE); CANNABINOID URINE SCREEN NEGATIVE (NEGATIVE); METHADONE URINE SCREEN NEGATIVE (NEGATIVE); OPIATES URINE SCREEN NEGATIVE (NEGATIVE); PHENCYCLIDINE URINE SCREEN NEGATIVE (NEGATIVE)
[2021-11-16] MEDS ORDERED: MECL-159 MT (11:38)
== END 2021-11-16 11:56 | disposition home or self-care (01) ==
LOC: ER 08:22
DX: R42 Dizziness and giddiness (principal); R53.83 Other fatigue; E11.9 Type 2 diabetes mellitus without complications; J45.909 Unspecified asthma, uncomplicated; I10 Essential (primary) hypertension; E78.00 Pure hypercholesterolemia, unspecified; Z79.84 Long term (current) use of oral hypoglycemic drugs; Z88.6 Allergy status to analgesic agent; Z88.0 Allergy status to penicillin
CPT/HCPCS: 36415; 71045; 80053; 80305; 80320; 81003; 82962; 83690; 85025; 85610; 93005; 96361; 96374; 99285; J2405; J7030; G0480

== ENCOUNTER 2021-12-04 15:35 | Emergency (ER) | payer OTHER ==
[~2021-12-04] VITALS: Ht 152.4 cm; Wt 76.0 kg
[2021-12-04 19:01] VITALS: BP 158/76
== END 2021-12-04 19:02 | disposition home or self-care (01) ==
LOC: ER 15:35
DX: F41.9 Anxiety disorder, unspecified (principal); R07.89 Other chest pain; I10 Essential (primary) hypertension; E11.9 Type 2 diabetes mellitus without complications; E78.00 Pure hypercholesterolemia, unspecified; J45.909 Unspecified asthma, uncomplicated; Z88.6 Allergy status to analgesic agent; Z88.0 Allergy status to penicillin
CPT/HCPCS: 93005; 99283

== ENCOUNTER 2021-12-07 16:33 | Emergency (ER) | payer OTHER ==
[~2021-12-07] VITALS: Ht 172.7 cm; Wt 76.0 kg
[2021-12-07 16:42] VITALS: BP 155/89
[2021-12-07] MEDS ORDERED: PROM6.254 MT (19:10)
== END 2021-12-07 19:23 | disposition home or self-care (01) ==
LOC: ER 16:33
DX: B34.9 Viral infection, unspecified (principal); F41.9 Anxiety disorder, unspecified; J45.909 Unspecified asthma, uncomplicated; E11.9 Type 2 diabetes mellitus without complications; I10 Essential (primary) hypertension; E78.00 Pure hypercholesterolemia, unspecified; G47.30 Sleep apnea, unspecified; Z88.6 Allergy status to analgesic agent; Z88.0 Allergy status to penicillin
CPT/HCPCS: 93005; 99283

== ENCOUNTER 2021-12-14 22:44 | Emergency (ER) | payer OTHER ==
[~2021-12-14] VITALS: Ht 154.9 cm; Wt 76.6 kg
[~2021-12-14 22:44] MED LIST changes: +PROM6.254 MT
[2021-12-15 01:00] VITALS: BP 160/85
[2021-12-15] MEDS ORDERED: OMEP20CA14 PO (01:00)
== END 2021-12-15 01:07 | disposition home or self-care (01) ==
LOC: ER 22:44
DX: K21.9 Gastro-esophageal reflux disease without esophagitis (principal); F41.9 Anxiety disorder, unspecified; J45.909 Unspecified asthma, uncomplicated; E11.9 Type 2 diabetes mellitus without complications; E78.00 Pure hypercholesterolemia, unspecified
CPT/HCPCS: 99282

== ENCOUNTER 2021-12-20 08:53 | Emergency (ER) | payer OTHER ==
[~2021-12-20] VITALS: Ht 152.4 cm; Wt 76.0 kg
[~2021-12-20 08:53] MED LIST changes: +OMEP20CA14 PO
[2021-12-20 09:04] VITALS: BP 130/83
== END 2021-12-20 10:56 | disposition home or self-care (01) ==
LOC: ER 08:53
DX: F41.9 Anxiety disorder, unspecified (principal); I10 Essential (primary) hypertension; J45.909 Unspecified asthma, uncomplicated; E11.9 Type 2 diabetes mellitus without complications; E78.00 Pure hypercholesterolemia, unspecified; K21.9 Gastro-esophageal reflux disease without esophagitis; Z88.6 Allergy status to analgesic agent; Z88.0 Allergy status to penicillin
CPT/HCPCS: 99281

== ENCOUNTER 2022-01-16 08:55 | Emergency (ER) | payer OTHER ==
[~2022-01-16] VITALS: Ht 152.4 cm; Wt 75.0 kg
[~2022-01-16 08:55] MED LIST changes: +ALBU6.7H3 INH; -ALBU6.7H9 INH
[2022-01-16 09:00] VITALS: BP 139/92
[2022-01-16 10:35] LABS: CLARITY URINE CLEAR (CLEAR); COLOR URINE YELLOW (YELLOW); KETONES URINE NEGATIVE (NEGATIVE); LEUKOCYTE ESTERASE URINE NEGATIVE (NEGATIVE); NITRITE URINE NEGATIVE (NEGATIVE); OCCULT BLOOD URINE TRACE (NEGATIVE); PROTEIN URINE NEGATIVE (NEGATIVE); SPECIFIC GRAVITY URINE 1.015 (1.005-1.030); UROBILINOGEN URINE 0.2 E.U./dL (0.2-1.0)
[2022-01-16] MEDS ORDERED: ACET-2708 MT (11:03)
[2022-01-16] MEDS ORDERED: OMEP20CA14 MT (11:23)
== END 2022-01-16 11:30 | disposition home or self-care (01) ==
LOC: ER 08:55
DX: R10.9 Unspecified abdominal pain (principal); I10 Essential (primary) hypertension; J45.909 Unspecified asthma, uncomplicated; E78.00 Pure hypercholesterolemia, unspecified; E11.9 Type 2 diabetes mellitus without complications; Z68.32 Body mass index [BMI] 32.0-32.9, adult; Z88.0 Allergy status to penicillin; Z88.6 Allergy status to analgesic agent; Z79.899 Other long term (current) drug therapy; Z98.890 Other specified postprocedural states
CPT/HCPCS: 81003; 99283

== ENCOUNTER 2022-01-16 17:45 | Emergency (ER) | payer OTHER ==
[~2022-01-16] VITALS: Ht 167.6 cm; Wt 89.0 kg
[2022-01-16 19:38] LABS: BASOPHILS % 0.7 % (0.0-2.0); EOSINOPHILS % 1.2 % (0.0-5.0); HEMATOCRIT. 37.5 % (36.0-48.0); HEMOGLOBIN. 12.4 g/dL (12.0-16.0); LYMPHOCYTES % 32.6 % (20.0-50.0); MEAN CORPUSCULAR HEMOGLOBIN 29.6 pg (28.0-32.0); MEAN CORPUSCULAR VOLUME 89.5 fL (81.0-99.0); MEAN PLATELET VOLUME 8.9 fl (7.4-10.4); MONOCYTES % 6.8 % (2.0-8.0); NEUTROPHILS % 58.7 % (40.0-76.0); PLATELET 205 x1000/uL (130-400); RED BLOOD CELL COUNT 4.19 mill/uL (4.2-5.4); RED CELL DISTRIBUTION WIDTH 14.4 % (11.6-14.6)
[2022-01-16 19:40] LABS: CHLORIDE 104 mEq/L (98-107)
[2022-01-16 20:03] VITALS: BP 140/81
== END 2022-01-16 21:06 | disposition home or self-care (01) ==
LOC: ER 17:45
DX: R07.89 Other chest pain (principal); E78.00 Pure hypercholesterolemia, unspecified; E11.9 Type 2 diabetes mellitus without complications; J45.909 Unspecified asthma, uncomplicated; Z88.0 Allergy status to penicillin; Z88.6 Allergy status to analgesic agent; Z79.899 Other long term (current) drug therapy; Z98.890 Other specified postprocedural states
CPT/HCPCS: 36415; 71045; 80053; 83880; 84484; 85025; 93005; 99285

== ENCOUNTER 2022-02-11 11:37 | Emergency (ER) | payer OTHER ==
[~2022-02-11] VITALS: Ht 152.4 cm; Wt 77.0 kg
[2022-02-11] MEDS ORDERED: BO1 TP (16:12)
[2022-02-11] MEDS ORDERED: ACETAMINOPHEN 325MG TABLET PO ONE (16:30)
[2022-02-11 16:49] VITALS: BP 137/86
[2022-02-12] MEDS ORDERED: TOPUD MT (16:28)
== END 2022-02-11 16:54 | disposition home or self-care (01) ==
LOC: ER 11:55
DX: S91.331A Puncture wound without foreign body, right foot, initial encounter (principal); W50.0XXA Accidental hit or strike by another person, initial encounter; Y93.89 Activity, other specified; Y92.89 Other specified places as the place of occurrence of the external cause; Y99.8 Other external cause status; F41.9 Anxiety disorder, unspecified; J45.909 Unspecified asthma, uncomplicated; E11.9 Type 2 diabetes mellitus without complications; K21.9 Gastro-esophageal reflux disease without esophagitis; E78.00 Pure hypercholesterolemia, unspecified; I10 Essential (primary) hypertension; Z79.899 Other long term (current) drug therapy
CPT/HCPCS: 99282

== ENCOUNTER 2022-02-12 13:33 | Emergency (ER) | payer MEDICAID, OTHER ==
[~2022-02-12] VITALS: Ht 167.6 cm; Wt 89.0 kg
[~2022-02-12 13:33] MED LIST changes: +BO1 TP
[2022-02-12 14:05] VITALS: BP 123/80
[2022-02-12] MEDS ORDERED: ACETAMINOPHEN 325MG TABLET PO ONE (16:00)
[2022-02-12] MEDS ORDERED: TOPUD MT (16:28)
== END 2022-02-12 17:03 | disposition home or self-care (01) ==
LOC: ER 13:33
DX: S09.8XXA Other specified injuries of head, initial encounter (principal); F41.9 Anxiety disorder, unspecified; J45.909 Unspecified asthma, uncomplicated; E11.9 Type 2 diabetes mellitus without complications; K21.9 Gastro-esophageal reflux disease without esophagitis; I10 Essential (primary) hypertension; E78.00 Pure hypercholesterolemia, unspecified; Z79.84 Long term (current) use of oral hypoglycemic drugs; Z88.6 Allergy status to analgesic agent; Z88.0 Allergy status to penicillin; W22.01XA Walked into wall, initial encounter; Y93.89 Activity, other specified; Y92.018 Other place in single-family (private) house as the place of occurrence of the external cause
CPT/HCPCS: 99282

== ENCOUNTER 2022-02-24 10:54 | Emergency (ER) | payer MEDICAID, OTHER ==
[~2022-02-24] VITALS: Ht 157.5 cm; Wt 82.0 kg
[2022-02-24 11:05] VITALS: BP 158/94
[2022-02-24] MEDS ORDERED: MAGNESIUM/ALUMINUM HYDROXIDE/SIMETHICONE 30ML UDC PO STA (13:25)
[2022-02-24] MEDS ORDERED: VISCOUS LIDOCAINE 2% 15 ML UDC PO STA (13:25)
[2022-02-24 14:17] LABS: BASOPHILS % 0.5 % (0.0-2.0); EOSINOPHILS % 0.9 % (0.0-5.0); HEMATOCRIT. 38.3 % (36.0-48.0); HEMOGLOBIN. 12.4 g/dL (12.0-16.0); LYMPHOCYTES % 32.7 % (20.0-50.0); MEAN CORPUSCULAR VOLUME 89.5 fL (81.0-99.0); MEAN PLATELET VOLUME 8.8 fl (7.4-10.4); MONOCYTES % 6.1 % (2.0-8.0); NEUTROPHILS % 59.8 % (40.0-76.0); PLATELET 209 x1000/uL (130-400); RED BLOOD CELL COUNT 4.28 mill/uL (4.2-5.4); RED CELL DISTRIBUTION WIDTH 14.3 % (11.6-14.6)
[2022-02-24 14:57] LABS: CHLORIDE 108 mEq/L (98-107)
[2022-02-24] MEDS ORDERED: MAG355OR21 MT (15:08)
== END 2022-02-24 15:14 | disposition home or self-care (01) ==
LOC: ER 10:54
DX: K21.9 Gastro-esophageal reflux disease without esophagitis (principal); E11.9 Type 2 diabetes mellitus without complications; E78.00 Pure hypercholesterolemia, unspecified; J45.909 Unspecified asthma, uncomplicated; F41.9 Anxiety disorder, unspecified; I10 Essential (primary) hypertension; Z79.84 Long term (current) use of oral hypoglycemic drugs; Z88.6 Allergy status to analgesic agent; Z88.0 Allergy status to penicillin
CPT/HCPCS: 36415; 71045; 80053; 84484; 85025; 93005; 99285

== ENCOUNTER 2022-03-03 16:04 | Emergency (ER) | payer OTHER ==
[~2022-03-03] VITALS: Ht 165.1 cm; Wt 82.0 kg
[~2022-03-03 16:04] MED LIST changes: +MAG355OR21 MT
[2022-03-03 16:17] VITALS: BP 106/75
[2022-03-03] MEDS ORDERED: TUSSL MT (17:04)
[2022-03-03] MEDS ORDERED: P20 MT (17:04)
[2022-03-03] MEDS ORDERED: PREDNISONE 20MG TABLET PO ONE (17:15)
== END 2022-03-03 17:16 | disposition home or self-care (01) ==
LOC: ER 16:04
DX: J45.909 Unspecified asthma, uncomplicated (principal); B34.9 Viral infection, unspecified; E11.9 Type 2 diabetes mellitus without complications; K21.9 Gastro-esophageal reflux disease without esophagitis; E78.00 Pure hypercholesterolemia, unspecified; I10 Essential (primary) hypertension; F41.9 Anxiety disorder, unspecified; Z76.0 Encounter for issue of repeat prescription; Z79.84 Long term (current) use of oral hypoglycemic drugs; Z88.6 Allergy status to analgesic agent; Z88.0 Allergy status to penicillin
CPT/HCPCS: 99283; J7512

== ENCOUNTER 2022-03-07 15:34 | Emergency (ER) | payer OTHER ==
[~2022-03-07] VITALS: Ht 160 cm; Wt 80.0 kg
[~2022-03-07 15:34] MED LIST changes: +P20 MT; +TUSSL MT
[2022-03-07 15:44] VITALS: BP 130/79
== END 2022-03-07 18:32 | disposition left against medical advice (07) ==
LOC: ER 15:34
DX: Z53.21 Procedure and treatment not carried out due to patient leaving prior to being seen by health care provider (principal)

== ENCOUNTER 2022-03-17 12:03 | Emergency (ER) | payer OTHER ==
[~2022-03-17] VITALS: Ht 167.6 cm; Wt 78.0 kg
[2022-03-17 12:11] VITALS: BP 127/79
[2022-03-17] MEDS ORDERED: ACETAMINOPHEN 325MG TABLET PO ONE (13:00)
[2022-03-17 13:27] LABS: CLARITY URINE CLEAR (CLEAR); COLOR URINE YELLOW (YELLOW); KETONES URINE NEGATIVE (NEGATIVE); LEUKOCYTE ESTERASE URINE NEGATIVE (NEGATIVE); NITRITE URINE NEGATIVE (NEGATIVE); OCCULT BLOOD URINE NEGATIVE (NEGATIVE); PH URINE 6.5 (4.5-8.0); PROTEIN URINE NEGATIVE (NEGATIVE); SPECIFIC GRAVITY URINE 1.005 (1.005-1.030); UROBILINOGEN URINE 0.2 E.U./dL (0.2-1.0)
[2022-03-17] MEDS ORDERED: ACET-2708 MT (13:41)
== END 2022-03-17 17:16 | disposition home or self-care (01) ==
LOC: ER 12:03
DX: R51.9 Headache, unspecified (principal); I10 Essential (primary) hypertension; E78.00 Pure hypercholesterolemia, unspecified; F41.9 Anxiety disorder, unspecified; J45.909 Unspecified asthma, uncomplicated; E11.9 Type 2 diabetes mellitus without complications; K21.9 Gastro-esophageal reflux disease without esophagitis; Z88.6 Allergy status to analgesic agent; Z88.0 Allergy status to penicillin
CPT/HCPCS: 81003; 82962; 93005; 99284

== ENCOUNTER 2022-03-24 15:30 | Emergency (ER) | payer OTHER ==
[~2022-03-24] VITALS: Ht 152.4 cm; Wt 82.0 kg
[2022-03-24 15:50] VITALS: BP 109/79
[2022-03-24] MEDS ORDERED: ACETAMINOPHEN 325MG TABLET PO STA (18:39)
[2022-03-24 19:53] LABS: BASOPHILS % 0.6 % (0.0-2.0); EOSINOPHILS % 1.5 % (0.0-5.0); HEMATOCRIT. 37.7 % (36.0-48.0); HEMOGLOBIN. 12.4 g/dL (12.0-16.0); LYMPHOCYTES % 34.5 % (20.0-50.0); MEAN CORPUSCULAR HEMOGLOBIN 29.3 pg (28.0-32.0); MEAN CORPUSCULAR VOLUME 89.3 fL (81.0-99.0); MEAN PLATELET VOLUME 8.7 fl (7.4-10.4); MONOCYTES % 6.9 % (2.0-8.0); NEUTROPHILS % 56.5 % (40.0-76.0); PLATELET 191 x1000/uL (130-400); RED BLOOD CELL COUNT 4.22 mill/uL (4.2-5.4); RED CELL DISTRIBUTION WIDTH 14.4 % (11.6-14.6)
[2022-03-24 19:58] LABS: CHLORIDE 104 mEq/L (98-107)
[2022-03-24 20:07] LABS: ETHANOL BLOOD < 10 mg/dL
[2022-03-24] MEDS ORDERED: ACETAMINOPHEN 325MG TABLET PO NR (21:30)
== END 2022-03-24 21:45 | disposition home or self-care (01) ==
LOC: ER 15:30
DX: R07.89 Other chest pain (principal); I10 Essential (primary) hypertension; J45.909 Unspecified asthma, uncomplicated; F41.9 Anxiety disorder, unspecified; K21.9 Gastro-esophageal reflux disease without esophagitis; E11.9 Type 2 diabetes mellitus without complications; E78.00 Pure hypercholesterolemia, unspecified; Z88.6 Allergy status to analgesic agent; Z88.0 Allergy status to penicillin
CPT/HCPCS: 36415; 71045; 80053; 80320; 82962; 84484; 85025; 93005; 99285; G0480

== ENCOUNTER 2022-03-29 23:16 | Emergency (ER) | payer OTHER ==
[~2022-03-29] VITALS: Ht 152.4 cm; Wt 83.6 kg
[2022-03-30] MEDS ORDERED: ALBUTEROL (0.083%) 2.5MG/3ML NEB HHN STA (01:17)
[2022-03-30] MEDS ORDERED: ACETAMINOPHEN 325MG TABLET PO STA (01:17)
[2022-03-30] MEDS ORDERED: TUSSL MT (02:13)
[2022-03-30 02:34] VITALS: BP 138/78
== END 2022-03-30 02:36 | disposition home or self-care (01) ==
LOC: ER 23:16
DX: R05.9 Cough, unspecified (principal); R07.89 Other chest pain; F41.9 Anxiety disorder, unspecified; J45.909 Unspecified asthma, uncomplicated; E11.9 Type 2 diabetes mellitus without complications; K21.9 Gastro-esophageal reflux disease without esophagitis; E78.00 Pure hypercholesterolemia, unspecified; I10 Essential (primary) hypertension; Z79.899 Other long term (current) drug therapy
CPT/HCPCS: 94640; 99283; Z7610

== ENCOUNTER 2022-04-06 08:27 | Emergency (ER) | payer OTHER ==
[~2022-04-06] VITALS: Ht 175.3 cm; Wt 91.0 kg
[2022-04-06 08:33] VITALS: BP 134/82
[2022-04-06] MEDS ORDERED: CLAR10 MT (09:19)
[2022-04-06] MEDS ORDERED: PRED10TA MT (09:19)
[2022-04-06] MEDS ORDERED: TUSSL MT (09:19)
== END 2022-04-06 09:53 | disposition home or self-care (01) ==
LOC: ER 08:27
DX: J45.909 Unspecified asthma, uncomplicated (principal); E78.00 Pure hypercholesterolemia, unspecified; E11.9 Type 2 diabetes mellitus without complications; Z88.0 Allergy status to penicillin; Z88.6 Allergy status to analgesic agent; Z79.899 Other long term (current) drug therapy; Z98.890 Other specified postprocedural states
CPT/HCPCS: 99281

== ENCOUNTER 2022-04-28 10:13 | Emergency (ER) | payer OTHER ==
[~2022-04-28] VITALS: Ht 162.6 cm; Wt 80.0 kg
[~2022-04-28 10:13] MED LIST changes: +CLAR10 MT; +PRED10TA MT
[2022-04-28 10:47] VITALS: BP 126/77
== END 2022-04-28 12:38 | disposition left against medical advice (07) ==
LOC: ER 10:19
DX: Z53.21 Procedure and treatment not carried out due to patient leaving prior to being seen by health care provider (principal)

== ENCOUNTER 2022-05-09 11:30 | Emergency (ER) | payer OTHER ==
[~2022-05-09] VITALS: Ht 157.5 cm; Wt 85.0 kg
[2022-05-09 11:41] VITALS: BP 156/91
[2022-05-10] MEDS ORDERED: METO5TAB86 MT (22:27)
== END 2022-05-09 16:40 | disposition left against medical advice (07) ==
LOC: ER 11:30
DX: Z53.21 Procedure and treatment not carried out due to patient leaving prior to being seen by health care provider (principal)

== ENCOUNTER 2022-05-10 19:53 | Emergency (ER) | payer OTHER ==
[~2022-05-10] VITALS: Ht 157.5 cm; Wt 84.0 kg
[2022-05-10 20:53] VITALS: BP 122/81
[2022-05-10] MEDS ORDERED: METO5TAB86 MT (22:27)
[2022-05-10] MEDS ORDERED: METOCLOPRAMIDE HCL 5MG TABLET PO ONE (22:30)
== END 2022-05-10 22:45 | disposition home or self-care (01) ==
LOC: ER 19:53
DX: G43.909 Migraine, unspecified, not intractable, without status migrainosus (principal); I10 Essential (primary) hypertension; F41.9 Anxiety disorder, unspecified; E78.00 Pure hypercholesterolemia, unspecified; E11.9 Type 2 diabetes mellitus without complications; Z79.84 Long term (current) use of oral hypoglycemic drugs; Z88.6 Allergy status to analgesic agent; Z88.0 Allergy status to penicillin
CPT/HCPCS: 99283; J8597

== ENCOUNTER 2022-05-12 16:31 | Emergency (ER) | payer OTHER ==
[~2022-05-12] VITALS: Ht 167.6 cm; Wt 89.0 kg
[~2022-05-12 16:31] MED LIST changes: +METO5TAB86 MT
[2022-05-12] MEDS ORDERED: HYDROCODONE/ACETAMINOPHEN 5/325MG TABLET PO ONE (20:00)
[2022-05-12 21:29] VITALS: BP 145/74
== END 2022-05-12 22:20 | disposition home or self-care (01) ==
LOC: ER 16:31
DX: R51.9 Headache, unspecified (principal); M79.661 Pain in right lower leg; I10 Essential (primary) hypertension; E11.9 Type 2 diabetes mellitus without complications; E78.00 Pure hypercholesterolemia, unspecified; Z79.82 Long term (current) use of aspirin; Z88.0 Allergy status to penicillin
CPT/HCPCS: 93971; 99284

== ENCOUNTER 2022-05-19 21:15 | Emergency (ER) | payer OTHER ==
[~2022-05-19] VITALS: Ht 157.5 cm; Wt 83.0 kg
[2022-05-20] MEDS ORDERED: ACETAMINOPHEN 325MG TABLET PO ONE (02:00)
[2022-05-20 02:01] VITALS: BP 133/81
== END 2022-05-20 02:04 | disposition home or self-care (01) ==
LOC: ER 21:34
DX: G44.009 Cluster headache syndrome, unspecified, not intractable (principal); E11.9 Type 2 diabetes mellitus without complications; E78.00 Pure hypercholesterolemia, unspecified; Z79.899 Other long term (current) drug therapy
CPT/HCPCS: 99282

== ENCOUNTER 2022-05-21 19:12 | Emergency (ER) | payer OTHER ==
[~2022-05-21] VITALS: Ht 157.5 cm; Wt 85.0 kg
[2022-05-21 21:19] VITALS: BP 122/61
[2022-05-21] MEDS ORDERED: ACETAMINOPHEN 325MG TABLET PO ONE (22:15)
[2022-05-21] MEDS ORDERED: METOCLOPRAMIDE HCL 10MG TABLET PO ONE (22:15)
== END 2022-05-21 22:51 | disposition home or self-care (01) ==
LOC: ER 19:12
DX: R51.9 Headache, unspecified (principal); I10 Essential (primary) hypertension; E78.00 Pure hypercholesterolemia, unspecified; F17.210 Nicotine dependence, cigarettes, uncomplicated; Z88.6 Allergy status to analgesic agent; Z88.0 Allergy status to penicillin
CPT/HCPCS: 99281

== ENCOUNTER 2022-05-26 13:44 | Emergency (ER) | payer OTHER ==
[~2022-05-26] VITALS: Ht 165.1 cm; Wt 77.0 kg
[2022-05-26 13:57] VITALS: BP 114/69
== END 2022-05-26 17:02 | disposition left against medical advice (07) ==
LOC: ER 13:44
DX: Z53.21 Procedure and treatment not carried out due to patient leaving prior to being seen by health care provider (principal)
CPT/HCPCS: 99281

== ENCOUNTER 2022-05-28 19:51 | Emergency (ER) | payer OTHER ==
[~2022-05-28] VITALS: Ht 157.5 cm; Wt 82.0 kg
[2022-05-28 20:14] VITALS: BP 130/74
[2022-05-28] MEDS ORDERED: [UNRECOGNIZED DRUG - CODE] OP (23:37)
== END 2022-05-29 01:45 | disposition home or self-care (01) ==
LOC: ER 19:51
DX: H57.89 Other specified disorders of eye and adnexa (principal); H57.11 Ocular pain, right eye; E78.00 Pure hypercholesterolemia, unspecified; Z79.899 Other long term (current) drug therapy
CPT/HCPCS: 99281

== ENCOUNTER 2022-06-05 14:17 | Emergency (ER) | payer OTHER ==
[~2022-06-05] VITALS: Ht 157.5 cm; Wt 89.0 kg
[~2022-06-05 14:17] MED LIST changes: +[UNRECOGNIZED DRUG - CODE] OP
[2022-06-05 14:21] VITALS: BP 116/74
== END 2022-06-05 21:21 | disposition left against medical advice (07) ==
LOC: ER 15:10
DX: Z53.21 Procedure and treatment not carried out due to patient leaving prior to being seen by health care provider (principal)
CPT/HCPCS: 99281

== ENCOUNTER 2022-06-16 21:52 | Emergency (ER) | payer OTHER ==
[~2022-06-16] VITALS: Ht 157.5 cm; Wt 81.0 kg
[2022-06-16 22:25] VITALS: BP 124/80
== END 2022-06-17 01:19 | disposition home or self-care (01) ==
LOC: ER 21:52
DX: M94.0 Chondrocostal junction syndrome [Tietze] (principal); E11.9 Type 2 diabetes mellitus without complications; E78.00 Pure hypercholesterolemia, unspecified; Z88.0 Allergy status to penicillin; Z88.6 Allergy status to analgesic agent; Z79.899 Other long term (current) drug therapy
CPT/HCPCS: 99281

== ENCOUNTER 2022-07-03 11:43 | Emergency (ER) | payer OTHER ==
[~2022-07-03] VITALS: Ht 157.5 cm; Wt 81.8 kg
[2022-07-03 14:05] LABS: BASOPHILS % 0.6 % (0.0-2.0); EOSINOPHILS % 1.5 % (0.0-5.0); HEMATOCRIT. 35.1 % (36.0-48.0); HEMOGLOBIN. 11.7 g/dL (12.0-16.0); LYMPHOCYTES % 35.1 % (20.0-50.0); MEAN CORPUSCULAR HEMOGLOBIN 29.7 pg (28.0-32.0); MEAN PLATELET VOLUME 8.6 fl (7.4-10.4); MONOCYTES % 5.6 % (2.0-8.0); NEUTROPHILS % 57.2 % (40.0-76.0); PLATELET 176 x1000/uL (130-400); RED BLOOD CELL COUNT 3.95 mill/uL (4.2-5.4); RED CELL DISTRIBUTION WIDTH 14.1 % (11.6-14.6)
[2022-07-03 14:12] LABS: CHLORIDE 107 mEq/L (98-107)
[2022-07-03 15:19] VITALS: BP 124/87
== END 2022-07-03 15:50 | disposition home or self-care (01) ==
LOC: ER 11:50
DX: G47.30 Sleep apnea, unspecified (principal); E11.9 Type 2 diabetes mellitus without complications; E78.00 Pure hypercholesterolemia, unspecified; Z88.0 Allergy status to penicillin; Z88.6 Allergy status to analgesic agent; Z79.899 Other long term (current) drug therapy
CPT/HCPCS: 36415; 71045; 80053; 83880; 84484; 85025; 99284

== ENCOUNTER 2022-07-08 08:54 | Emergency (ER) | payer OTHER ==
[~2022-07-08] VITALS: Ht 157.5 cm; Wt 81.0 kg
[2022-07-08 08:58] VITALS: BP 120/73
== END 2022-07-08 09:38 | disposition home or self-care (01) ==
LOC: ER 09:08
DX: J02.9 Acute pharyngitis, unspecified (principal); E11.9 Type 2 diabetes mellitus without complications; I10 Essential (primary) hypertension; Z88.0 Allergy status to penicillin; Z88.6 Allergy status to analgesic agent
CPT/HCPCS: 99281

== ENCOUNTER 2022-07-31 21:17 | Emergency (ER) | payer OTHER ==
[~2022-07-31] VITALS: Ht 157.5 cm; Wt 83.5 kg
[2022-07-31 21:46] VITALS: BP 139/88
[2022-07-31] MEDS ORDERED: FAMOTIDINE 20MG TABLET PO ONE (22:30)
[2022-07-31] MEDS ORDERED: ONDANSETRON HCL 4MG TABLET PO ONE (22:30)
[2022-07-31] MEDS ORDERED: ACETAMINOPHEN 325MG TABLET PO ONE (22:30)
[2022-07-31] MEDS ORDERED: ONDA4TAB50 MT (22:48)
[2022-07-31] MEDS ORDERED: FAMO20TA8 MT (22:48)
[2022-07-31] MEDS ORDERED: TOPUD PO (22:48)
== END 2022-07-31 22:59 | disposition home or self-care (01) ==
LOC: ER 21:17
DX: K21.9 Gastro-esophageal reflux disease without esophagitis (principal); M79.602 Pain in left arm; R11.0 Nausea; E11.9 Type 2 diabetes mellitus without complications; I10 Essential (primary) hypertension; Z88.0 Allergy status to penicillin; Z88.6 Allergy status to analgesic agent; Z79.84 Long term (current) use of oral hypoglycemic drugs
CPT/HCPCS: 99284; Q0162

== ENCOUNTER 2023-02-22 09:47 | Emergency (ER) | payer OTHER ==
[~2023-02-22] VITALS: Ht 165.1 cm; Wt 68.0 kg
[~2023-02-22 09:47] MED LIST changes: +FAMO-135 MT; +FAMO20TA8 MT; +GUAI600T26 MT; +HYDR28OI2 TP; -MECL-159 MT; +MECL-299 MT; +METH-653 MT; +OMEP-265 MT; +ONDA4TAB50 MT; +PROM6.2527 MT; -PROM6.254 MT; +TC1C15 TP
[2023-02-22 09:50] VITALS: O2SAT 100
[2023-02-22] MEDS ORDERED: HYDROCODONE/ACETAMINOPHEN 5/325MG TABLET PO STA (12:03)
[2023-02-22 12:55] VITALS: BP 138/73
[2023-02-22] MEDS ORDERED: HYDR-4001 MT (13:07)
[2023-02-22] MEDS ORDERED: BO1 TP (13:07)
[2023-02-22] MEDS ORDERED: BACITRACIN ZINC OINT UDPKT TOP ONE (13:15)
[2023-02-22 13:19] VITALS: PULSE 103; RESP 20; TEMP 98.3
== END 2023-02-22 13:21 | disposition home or self-care (01) ==
LOC: ER 09:47
DX: M79.605 Pain in left leg (principal); M79.604 Pain in right leg
CPT/HCPCS: 73590; 99283

== ENCOUNTER 2023-03-03 12:34 | Emergency (ER) | payer MEDICAID, OTHER ==
[~2023-03-03] VITALS: Ht 157.5 cm; Wt 81.0 kg
[2023-03-03 12:41] VITALS: BP 120/77; PULSE 103; RESP 20; TEMP 98.3; O2SAT 100
[2023-03-03] MEDS ORDERED: HYDR-4001 MT (13:15)
== END 2023-03-03 13:39 | disposition home or self-care (01) ==
LOC: ER 12:34
DX: M79.604 Pain in right leg (principal); F41.9 Anxiety disorder, unspecified; J45.909 Unspecified asthma, uncomplicated; F32.A Depression, unspecified; E11.9 Type 2 diabetes mellitus without complications; E78.00 Pure hypercholesterolemia, unspecified; Z88.0 Allergy status to penicillin; Z88.8 Allergy status to other drugs, medicaments and biological substances; Z88.6 Allergy status to analgesic agent; Z79.899 Other long term (current) drug therapy
CPT/HCPCS: 99283

== ENCOUNTER 2023-03-14 06:19 | Emergency (ER) | payer OTHER ==
[~2023-03-14] VITALS: Ht 160 cm; Wt 82.0 kg
[2023-03-14 06:27] VITALS: BP 110/74; O2SAT 97
[2023-03-14] MEDS ORDERED: DEXAMETHASONE 4MG TABLET PO ONE (08:45)
[2023-03-14 09:01] VITALS: PULSE 88; RESP 18; TEMP 98.7
== END 2023-03-14 09:07 | disposition home or self-care (01) ==
LOC: ER 06:19
DX: J98.01 Acute bronchospasm (principal); E78.00 Pure hypercholesterolemia, unspecified; E11.9 Type 2 diabetes mellitus without complications; Z88.0 Allergy status to penicillin; Z88.6 Allergy status to analgesic agent; Z79.899 Other long term (current) drug therapy
CPT/HCPCS: 99283; J8540

== ENCOUNTER 2023-03-17 08:29 | Emergency (ER) | payer OTHER ==
[~2023-03-17] VITALS: Ht 157.5 cm; Wt 79.0 kg
[2023-03-17 08:35] VITALS: BP 136/78; TEMP 98.1; O2SAT 98
[2023-03-17] MEDS ORDERED: P20 PO (08:55)
[2023-03-17] MEDS ORDERED: ALBU2.5V13 NEB (08:55)
[2023-03-17 08:59] VITALS: PULSE 98; RESP 18
== END 2023-03-17 09:01 | disposition home or self-care (01) ==
LOC: ER 08:29
DX: J45.901 Unspecified asthma with (acute) exacerbation (principal); F41.9 Anxiety disorder, unspecified; F32.9 Major depressive disorder, single episode, unspecified; E11.9 Type 2 diabetes mellitus without complications; E78.00 Pure hypercholesterolemia, unspecified; Z79.899 Other long term (current) drug therapy
CPT/HCPCS: 99283

== ENCOUNTER 2023-03-22 21:41 | Emergency (ER) | payer OTHER ==
[~2023-03-22] VITALS: Ht 165.1 cm; Wt 60.0 kg
[~2023-03-22 21:41] MED LIST changes: +ALBU2.5V13 NEB; +P20 PO
[2023-03-22 22:00] VITALS: TEMP 98.5; O2SAT 99
[2023-03-22 23:23] VITALS: BP 118/75; PULSE 77; RESP 18
== END 2023-03-22 23:31 | disposition home or self-care (01) ==
LOC: ER 21:41
DX: F41.9 Anxiety disorder, unspecified (principal); J45.909 Unspecified asthma, uncomplicated; F32.9 Major depressive disorder, single episode, unspecified; E11.9 Type 2 diabetes mellitus without complications; E78.00 Pure hypercholesterolemia, unspecified; Z79.899 Other long term (current) drug therapy
CPT/HCPCS: 99283

== ENCOUNTER 2023-03-28 07:22 | Emergency (ER) | payer OTHER ==
[~2023-03-28] VITALS: Ht 165.1 cm; Wt 81.0 kg
[2023-03-28 07:35] VITALS: O2SAT 97
[2023-03-28] MEDS ORDERED: ALBU2.5V13 NEB (08:22)
[2023-03-28 09:03] VITALS: BP 132/78; PULSE 98; RESP 16; TEMP 98.2
== END 2023-03-28 09:04 | disposition home or self-care (01) ==
LOC: ER 07:22
DX: R05.9 Cough, unspecified (principal); J45.909 Unspecified asthma, uncomplicated; I10 Essential (primary) hypertension; Z76.0 Encounter for issue of repeat prescription; Z88.0 Allergy status to penicillin; Z88.6 Allergy status to analgesic agent; Z79.899 Other long term (current) drug therapy
CPT/HCPCS: 99281

== ENCOUNTER 2023-04-20 19:28 | Emergency (ER) | payer OTHER ==
[~2023-04-20] VITALS: Ht 167.6 cm; Wt 90.0 kg
[2023-04-20 19:31] VITALS: BP 172/105; PULSE 92; RESP 15; TEMP 98.4; O2SAT 98
== END 2023-04-20 21:45 | disposition home or self-care (01) ==
LOC: ER 19:28
DX: F41.9 Anxiety disorder, unspecified (principal); E11.9 Type 2 diabetes mellitus without complications; I10 Essential (primary) hypertension; Z88.0 Allergy status to penicillin; Z88.6 Allergy status to analgesic agent; Z00.00 Encounter for general adult medical examination without abnormal findings; Z79.899 Other long term (current) drug therapy
CPT/HCPCS: 99283

== ENCOUNTER 2023-05-12 13:13 | Emergency (ER) | payer OTHER ==
[~2023-05-12] VITALS: Ht 162.6 cm; Wt 81.0 kg
[2023-05-12 13:21] VITALS: BP 122/72; PULSE 98; RESP 12; TEMP 98.5; O2SAT 98
[2023-05-12] MEDS: ACETAMINOPHEN 325MG TABLET PO ONE (13:30)
== END 2023-05-12 13:34 | disposition home or self-care (01) ==
LOC: ER 13:13
DX: S80.12XA Contusion of left lower leg, initial encounter (principal); E11.9 Type 2 diabetes mellitus without complications; I10 Essential (primary) hypertension; Z79.899 Other long term (current) drug therapy; X58.XXXA Exposure to other specified factors, initial encounter; Y93.89 Activity, other specified; Y92.89 Other specified places as the place of occurrence of the external cause; Y99.8 Other external cause status
CPT/HCPCS: 99282

== ENCOUNTER 2023-06-10 13:34 | Emergency (ER) | payer OTHER ==
[~2023-06-10] VITALS: Ht 162.6 cm; Wt 68.0 kg
[2023-06-10 13:39] VITALS: BP 109/71; PULSE 95; RESP 18; TEMP 98.1; O2SAT 99
[2023-06-10] MEDS: CYCLOBENZAPRINE 10MG TABLET PO SCH (15:58)
== END 2023-06-10 16:31 | disposition home or self-care (01) ==
LOC: ER 13:34
DX: M79.601 Pain in right arm (principal); E11.9 Type 2 diabetes mellitus without complications; I10 Essential (primary) hypertension; Z79.899 Other long term (current) drug therapy
CPT/HCPCS: 73110; 82962; 99283

== ENCOUNTER 2023-06-23 08:05 | Emergency (ER) | payer OTHER ==
[~2023-06-23] VITALS: Ht 162.6 cm; Wt 81.0 kg
[2023-06-23 08:34] VITALS: BP 116/74; PULSE 87; RESP 16; O2SAT 100
[2023-06-23] MEDS ORDERED: PERM60CR4 TP (09:49)
== END 2023-06-23 11:44 | disposition home or self-care (01) ==
LOC: ER 08:05
DX: J02.9 Acute pharyngitis, unspecified (principal); E11.9 Type 2 diabetes mellitus without complications; I10 Essential (primary) hypertension; Z88.0 Allergy status to penicillin; Z88.6 Allergy status to analgesic agent; Z88.8 Allergy status to other drugs, medicaments and biological substances
CPT/HCPCS: 82962; 99282

== ENCOUNTER 2023-07-13 17:30 | Emergency (ER) | payer OTHER ==
[~2023-07-13] VITALS: Ht 162.6 cm; Wt 79.4 kg
[~2023-07-13 17:30] MED LIST changes: +PERM60CR4 TP
[2023-07-13 17:39] VITALS: O2SAT 100
[2023-07-13 18:07] LABS: BASOPHILS % 0.8 % (0.0-2.0); EOSINOPHILS % 1.8 % (0.0-5.0); HEMATOCRIT. 36.5 % (36.0-48.0); HEMOGLOBIN. 11.8 g/dL (12.0-16.0); LYMPHOCYTES % 38.3 % (20.0-50.0); MEAN CORPUSCULAR HEMOGLOBIN 28.7 pg (28.0-32.0); MEAN CORPUSCULAR HGB CONC 32.3 g/dL (31.0-37.0); MEAN CORPUSCULAR VOLUME 88.8 fL (81.0-99.0); MEAN PLATELET VOLUME 9.1 fl (7.4-10.4); MONOCYTES % 7.2 % (2.0-8.0); NEUTROPHILS % 51.9 % (40.0-76.0); PLATELET 200 x1000/uL (130-400); RED BLOOD CELL COUNT 4.11 mill/uL (4.2-5.4); RED CELL DISTRIBUTION WIDTH 15.1 % (11.6-14.6); WHITE BLOOD COUNT 7.6 x1000/uL (4.5-11.0)
[2023-07-13 18:10] LABS: CHLORIDE 107 mEq/L (98-107); POTASSIUM 3.8 mEq/L (3.5-5.1); SODIUM 141 mEq/L (136-145)
[2023-07-13 18:11] LABS: CARBON DIOXIDE 27 mEq/L (21-32)
[2023-07-13 18:12] LABS: CALCIUM 8.8 mg/dL (8.7-10.4)
[2023-07-13 18:16] LABS: CREATININE 0.8 mg/dL (0.6-1.0); GLUCOSE 116 mg/dL (70-105)
[2023-07-13 18:17] LABS: UREA NITROGEN BLOOD 15 mg/dL (9-23)
[2023-07-13 18:22] LABS: TROPONIN I HIGH SENSITIVITY < 4 ng/L (3.0-34)
[2023-07-13 19:48] LABS: ALANINE AMINOTRANSFERASE 17 IU/L (10-49); ALBUMIN 4.5 g/dL (3.2-4.8); ASPARTATE AMINOTRANSFERASE 27 IU/L (<34); TROPONIN I HIGH SENSITIVITY < 4 ng/L (3.0-34)
[2023-07-13 19:49] LABS: BILIRUBIN TOTAL 0.3 mg/dL (0.1-1.0); PROTEIN TOTAL 6.6 g/dL (6.0-8.3)
[2023-07-13 20:01] LABS: BILIRUBIN DIRECT < 0.1 mg/dL (<=3.0)
[2023-07-13] MEDS ORDERED: OMEP20CA14 MT (20:14)
[2023-07-13 21:07] VITALS: BP 137/79; PULSE 100; RESP 17; TEMP 98.5
== END 2023-07-13 21:09 | disposition home or self-care (01) ==
LOC: ER 17:30
DX: K21.9 Gastro-esophageal reflux disease without esophagitis (principal); Z79.899 Other long term (current) drug therapy
CPT/HCPCS: 36415; 71045; 80048; 80076; 84484; 85025; 93005; 99285

== ENCOUNTER 2023-08-13 11:17 | Emergency (ER) | payer OTHER ==
[~2023-08-13] VITALS: Ht 162.6 cm; Wt 81.0 kg
[2023-08-13 11:25] VITALS: BP 110/71; PULSE 94; RESP 16; TEMP 98.8; O2SAT 98
== END 2023-08-13 15:52 | disposition home or self-care (01) ==
LOC: ER 11:17
DX: R42 Dizziness and giddiness (principal); I10 Essential (primary) hypertension; E11.9 Type 2 diabetes mellitus without complications; E78.00 Pure hypercholesterolemia, unspecified; Z88.6 Allergy status to analgesic agent; Z88.0 Allergy status to penicillin; Z79.899 Other long term (current) drug therapy
CPT/HCPCS: 82962; 93005; 99283

== ENCOUNTER 2023-08-27 18:00 | Emergency (ER) | payer OTHER ==
[~2023-08-27] VITALS: Ht 162.6 cm; Wt 68.0 kg
[2023-08-27 18:06] VITALS: BP 120/86; TEMP 98; O2SAT 97
[2023-08-27] MEDS: ONDANSETRON 4MG ODT PO ONE (18:19)
[2023-08-27] MEDS: MAGNESIUM/ALUMINUM HYDROXIDE/SIMETHICONE 30ML UDC PO STA ×2 (18:32→18:33)
[2023-08-27] MEDS: SODIUM CHLORIDE 0.9% 1,000 ML IV ONE (18:32)
[2023-08-27] MEDS: FAMOTIDINE 20MG/2ML VIAL IV STA (18:32)
[2023-08-27 18:53] LABS: BASOPHILS % 0.2 % (0.0-2.0); CHLORIDE 104 mEq/L (98-107); EOSINOPHILS % 0.8 % (0.0-5.0); HEMATOCRIT. 38.7 % (36.0-48.0); LYMPHOCYTES % 8.4 % (20.0-50.0); MEAN CORPUSCULAR HEMOGLOBIN 29.2 pg (28.0-32.0); MEAN CORPUSCULAR HGB CONC 33.6 g/dL (31.0-37.0); MEAN CORPUSCULAR VOLUME 86.9 fL (81.0-99.0); MEAN PLATELET VOLUME 8.9 fl (7.4-10.4); MONOCYTES % 5.5 % (2.0-8.0); NEUTROPHILS % 85.1 % (40.0-76.0); PLATELET 191 x1000/uL (130-400); RED BLOOD CELL COUNT 4.45 mill/uL (4.2-5.4); RED CELL DISTRIBUTION WIDTH 14.5 % (11.6-14.6); SODIUM 141 mEq/L (136-145); WHITE BLOOD COUNT 8.8 x1000/uL (4.5-11.0)
[2023-08-27 18:54] LABS: CALCIUM 9.6 mg/dL (8.7-10.4); CARBON DIOXIDE 30 mEq/L (21-32)
[2023-08-27 18:59] LABS: CREATININE 0.7 mg/dL (0.6-1.0); GLUCOSE 128 mg/dL (70-105)
[2023-08-27 19:00] LABS: UREA NITROGEN BLOOD 15 mg/dL (9-23)
[2023-08-27 19:01] LABS: ALANINE AMINOTRANSFERASE 30 IU/L (10-49); ALBUMIN 5.3 g/dL (3.2-4.8); ASPARTATE AMINOTRANSFERASE 33 IU/L (<34); BILIRUBIN DIRECT 0.3 mg/dL (<=3.0)
[2023-08-27 19:02] LABS: BILIRUBIN TOTAL 0.7 mg/dL (0.1-1.0); PROTEIN TOTAL 7.5 g/dL (6.0-8.3)
[2023-08-27 19:03] LABS: ETHANOL BLOOD < 10 mg/dL (<10)
[2023-08-27 19:16] LABS: BETA HYDROXYBUTYRATE 0.5 mMol/L (0.0-0.3)
[2023-08-27] MEDS ORDERED: ONDA4TAB11 PO (19:22)
[2023-08-27 19:44] VITALS: PULSE 82; RESP 16
== END 2023-08-27 19:45 | disposition home or self-care (01) ==
LOC: ER 18:00
DX: R11.2 Nausea with vomiting, unspecified (principal); E11.9 Type 2 diabetes mellitus without complications; I10 Essential (primary) hypertension; Z88.0 Allergy status to penicillin; Z88.6 Allergy status to analgesic agent; Z79.899 Other long term (current) drug therapy
CPT/HCPCS: 80076; 80048; 82010; 80320; 83690; 85025; 36415; 96361; 96374; 99283; Q0162; J3490; J7030; Z7610; G0480

== ENCOUNTER 2023-08-30 07:28 | Emergency (ER) | payer OTHER ==
[~2023-08-30] VITALS: Ht 162.6 cm; Wt 81.0 kg
[~2023-08-30 07:28] MED LIST changes: +ONDA4TAB11 PO
[2023-08-30 07:50] VITALS: O2SAT 100
[2023-08-30] MEDS ORDERED: POLY119P2 MT (08:35)
[2023-08-30 09:10] VITALS: BP 109/69; PULSE 78; RESP 18; TEMP 98.9
== END 2023-08-30 09:12 | disposition home or self-care (01) ==
LOC: ER 07:28
DX: R10.9 Unspecified abdominal pain (principal); K59.00 Constipation, unspecified; E78.00 Pure hypercholesterolemia, unspecified; E11.9 Type 2 diabetes mellitus without complications; Z88.0 Allergy status to penicillin; Z88.6 Allergy status to analgesic agent; Z79.899 Other long term (current) drug therapy
CPT/HCPCS: 99282; Z7610

== ENCOUNTER 2023-09-06 09:08 | Emergency (ER) | payer OTHER ==
[~2023-09-06] VITALS: Ht 172.7 cm; Wt 73.0 kg
[~2023-09-06 09:08] MED LIST changes: +POLY119P2 MT
[2023-09-06 09:09] VITALS: O2SAT 99
[2023-09-06] MEDS: SODIUM CHLORIDE 0.9% 1,000 ML IV ONE (09:42)
[2023-09-06 09:49] LABS: BASOPHILS % 0.8 % (0.0-2.0); EOSINOPHILS % 1.2 % (0.0-5.0); HEMATOCRIT. 35.7 % (36.0-48.0); HEMOGLOBIN. 11.5 g/dL (12.0-16.0); LYMPHOCYTES % 39.3 % (20.0-50.0); MEAN CORPUSCULAR HEMOGLOBIN 28.7 pg (28.0-32.0); MEAN CORPUSCULAR HGB CONC 32.3 g/dL (31.0-37.0); MEAN PLATELET VOLUME 8.3 fl (7.4-10.4); MONOCYTES % 5.7 % (2.0-8.0); PLATELET 213 x1000/uL (130-400); RED BLOOD CELL COUNT 4.01 mill/uL (4.2-5.4); RED CELL DISTRIBUTION WIDTH 14.5 % (11.6-14.6); WHITE BLOOD COUNT 7.1 x1000/uL (4.5-11.0)
[2023-09-06 09:59] LABS: CHLORIDE 107 mEq/L (98-107); POTASSIUM 3.9 mEq/L (3.5-5.1); SODIUM 139 mEq/L (136-145)
[2023-09-06 10:00] LABS: CALCIUM 8.8 mg/dL (8.7-10.4); CARBON DIOXIDE 27 mEq/L (21-32)
[2023-09-06 10:05] LABS: CREATININE 0.6 mg/dL (0.6-1.0); GLUCOSE 147 mg/dL (70-105); UREA NITROGEN BLOOD 11 mg/dL (9-23)
[2023-09-06 10:07] LABS: ALANINE AMINOTRANSFERASE 29 IU/L (10-49); ALBUMIN 4.6 g/dL (3.2-4.8); ASPARTATE AMINOTRANSFERASE 26 IU/L (<34); BILIRUBIN DIRECT 0.1 mg/dL (<=3.0); BILIRUBIN TOTAL 0.4 mg/dL (0.1-1.0); PROTEIN TOTAL 6.5 g/dL (6.0-8.3)
[2023-09-06 10:48] VITALS: BP 137/87; PULSE 75; RESP 14; TEMP 97.7
[2023-09-06 13:27] LABS: TROPONIN I HIGH SENSITIVITY < 4 ng/L (3.0-34)
== END 2023-09-06 11:14 | disposition home or self-care (01) ==
LOC: ER 09:08
DX: R42 Dizziness and giddiness (principal); I10 Essential (primary) hypertension; E78.00 Pure hypercholesterolemia, unspecified; E11.9 Type 2 diabetes mellitus without complications; Z88.0 Allergy status to penicillin; Z88.6 Allergy status to analgesic agent; Z79.899 Other long term (current) drug therapy
CPT/HCPCS: 80076; 80048; 83690; 85025; 84484; 36415; 93005; 96360; 99284; J7030; Z7610 ×3

== ENCOUNTER 2023-09-24 08:09 | Emergency (ER) | payer OTHER ==
[~2023-09-24] VITALS: Ht 162.6 cm; Wt 85.0 kg
[2023-09-24 08:33] VITALS: O2SAT 100
[2023-09-24] MEDS ORDERED: HYDR453.3 TP (10:57)
[2023-09-24] MEDS ORDERED: ALBU05 NEB (10:57)
[2023-09-24 11:41] VITALS: BP 144/83; PULSE 92; RESP 18; TEMP 98.2
== END 2023-09-24 11:44 | disposition home or self-care (01) ==
LOC: ER 08:09
DX: J45.909 Unspecified asthma, uncomplicated (principal); L98.8 Other specified disorders of the skin and subcutaneous tissue; E11.9 Type 2 diabetes mellitus without complications; E78.00 Pure hypercholesterolemia, unspecified; I10 Essential (primary) hypertension; Z76.0 Encounter for issue of repeat prescription; Z88.0 Allergy status to penicillin; Z88.8 Allergy status to other drugs, medicaments and biological substances; Z88.6 Allergy status to analgesic agent; Z79.899 Other long term (current) drug therapy
CPT/HCPCS: 99283

== ENCOUNTER 2023-10-03 08:41 | Emergency (ER) | payer OTHER ==
[~2023-10-03] VITALS: Ht 162.6 cm; Wt 81.0 kg
[~2023-10-03 08:41] MED LIST changes: +HYDR453.3 TP
[2023-10-03 08:45] VITALS: O2SAT 97
[2023-10-03] MEDS ORDERED: HYDR30OI12 TP (09:02)
[2023-10-03 09:07] VITALS: BP 120/70; PULSE 66; RESP 18; TEMP 98.5
== END 2023-10-03 09:10 | disposition home or self-care (01) ==
LOC: ER 08:41
DX: L29.9 Pruritus, unspecified (principal); R21 Rash and other nonspecific skin eruption; E11.9 Type 2 diabetes mellitus without complications; E78.00 Pure hypercholesterolemia, unspecified; I10 Essential (primary) hypertension; Z79.899 Other long term (current) drug therapy; Z76.0 Encounter for issue of repeat prescription
CPT/HCPCS: 99282

== ENCOUNTER 2023-10-08 07:21 | Emergency (ER) | payer OTHER ==
[~2023-10-08] VITALS: Ht 162.6 cm; Wt 79.4 kg
[~2023-10-08 07:21] MED LIST changes: +HYDR30OI12 TP
[2023-10-08 07:36] VITALS: O2SAT 99
[2023-10-08] MEDS ORDERED: METO-293 MT (08:17)
[2023-10-08] MEDS ORDERED: SUMA100T16 PO (08:27)
[2023-10-08 09:37] VITALS: BP 121/70; PULSE 80; RESP 16; TEMP 98.4
== END 2023-10-08 09:47 | disposition home or self-care (01) ==
LOC: ER 07:21
DX: G43.909 Migraine, unspecified, not intractable, without status migrainosus (principal); E11.9 Type 2 diabetes mellitus without complications; E78.00 Pure hypercholesterolemia, unspecified; I10 Essential (primary) hypertension; Z88.0 Allergy status to penicillin; Z88.6 Allergy status to analgesic agent; Z79.899 Other long term (current) drug therapy
CPT/HCPCS: 99283

== ENCOUNTER 2023-10-16 11:59 | Emergency (ER) | payer OTHER ==
[~2023-10-16] VITALS: Ht 162.6 cm; Wt 77.0 kg
[~2023-10-16 11:59] MED LIST changes: +SUMA100T16 PO
[2023-10-16 12:15] VITALS: O2SAT 99
[2023-10-16 13:38] LABS: TROPONIN I HIGH SENSITIVITY < 4 ng/L (3.0-34)
[2023-10-16 13:59] VITALS: BP 121/74; PULSE 90; RESP 18; TEMP 98.6
== END 2023-10-16 14:09 | disposition home or self-care (01) ==
LOC: ER 11:59
DX: R07.89 Other chest pain (principal); I10 Essential (primary) hypertension; E78.00 Pure hypercholesterolemia, unspecified; E11.9 Type 2 diabetes mellitus without complications; F41.9 Anxiety disorder, unspecified; Z88.0 Allergy status to penicillin; Z88.6 Allergy status to analgesic agent; Z79.899 Other long term (current) drug therapy
CPT/HCPCS: 36415; 71045; 84484; 93005; 99285

== ENCOUNTER 2023-11-01 14:27 | Emergency (ER) | payer MEDICAID, BC ==
[~2023-11-01] VITALS: Ht 162.6 cm; Wt 81.0 kg
[2023-11-01 14:34] VITALS: BP 112/73; PULSE 87; RESP 16; TEMP 98.3; O2SAT 97
== END 2023-11-01 17:07 | disposition home or self-care (01) ==
LOC: ER 14:27
DX: E11.65 Type 2 diabetes mellitus with hyperglycemia (principal); E78.00 Pure hypercholesterolemia, unspecified; I10 Essential (primary) hypertension; Z79.899 Other long term (current) drug therapy; Z88.0 Allergy status to penicillin; Z88.8 Allergy status to other drugs, medicaments and biological substances; Z88.6 Allergy status to analgesic agent
CPT/HCPCS: 82962; 83036; 99283

== ENCOUNTER 2023-11-03 15:35 | Emergency (ER) | payer BC, MEDICAID ==
[~2023-11-03] VITALS: Ht 165.1 cm; Wt 67.0 kg
[2023-11-03 15:37] VITALS: BP 127/72; PULSE 99; RESP 20; TEMP 98.7; O2SAT 98
[2023-11-03] MEDS ORDERED: P20 PO (16:02)
[2023-11-03] MEDS: PREDNISONE 20MG TABLET PO ONE (17:28)
== END 2023-11-03 17:29 | disposition home or self-care (01) ==
LOC: ER 15:35
DX: J45.901 Unspecified asthma with (acute) exacerbation (principal); E11.9 Type 2 diabetes mellitus without complications; E78.00 Pure hypercholesterolemia, unspecified; I10 Essential (primary) hypertension; Z79.899 Other long term (current) drug therapy; Z88.0 Allergy status to penicillin; Z88.6 Allergy status to analgesic agent; Z88.8 Allergy status to other drugs, medicaments and biological substances
CPT/HCPCS: 99283; J7512

== ENCOUNTER 2023-11-18 07:39 | Emergency (ER) | payer BC ==
[~2023-11-18] VITALS: Ht 162.6 cm; Wt 91.0 kg
[~2023-11-18 07:39] MED LIST changes: +ONDA-239 PO; -ONDA4TAB11 PO
[2023-11-18 07:47] VITALS: O2SAT 99
[2023-11-18] MEDS: MECLIZINE 25MG TABLET PO ONE (08:45)
[2023-11-18] MEDS: SODIUM CHLORIDE 0.9% 1,000 ML IV ONE (09:30)
[2023-11-18 10:13] LABS: BASOPHILS % 0.9 % (0.0-2.0); EOSINOPHILS % 0.9 % (0.0-5.0); HEMATOCRIT. 36.3 % (36.0-48.0); HEMOGLOBIN. 11.6 g/dL (12.0-16.0); LYMPHOCYTES % 28.3 % (20.0-50.0); MEAN CORPUSCULAR HEMOGLOBIN 28.4 pg (28.0-32.0); MEAN CORPUSCULAR VOLUME 88.7 fL (81.0-99.0); MEAN PLATELET VOLUME 8.6 fl (7.4-10.4); MONOCYTES % 6.7 % (2.0-8.0); NEUTROPHILS % 63.2 % (40.0-76.0); PLATELET 181 x1000/uL (130-400); RED BLOOD CELL COUNT 4.09 mill/uL (4.2-5.4); RED CELL DISTRIBUTION WIDTH 14.5 % (11.6-14.6); WHITE BLOOD COUNT 7.8 x1000/uL (4.5-11.0)
[2023-11-18 10:27] LABS: CHLORIDE 99 mEq/L (98-107); POTASSIUM 3.8 mEq/L (3.5-5.1); SODIUM 132 mEq/L (136-145)
[2023-11-18 10:28] LABS: CALCIUM 8.6 mg/dL (8.7-10.4); CARBON DIOXIDE 28 mEq/L (21-32)
[2023-11-18 10:33] LABS: CREATININE 0.9 mg/dL (0.6-1.0); UREA NITROGEN BLOOD 14 mg/dL (9-23)
[2023-11-18 10:34] LABS: TROPONIN I HIGH SENSITIVITY < 4 ng/L (3.0-34)
[2023-11-18 10:35] LABS: ALANINE AMINOTRANSFERASE 21 IU/L (10-49); ALBUMIN 4.3 g/dL (3.2-4.8); ASPARTATE AMINOTRANSFERASE 17 IU/L (<34); BILIRUBIN TOTAL 0.5 mg/dL (0.1-1.0); GLUCOSE 423 mg/dL (70-105); PROTEIN TOTAL 6.6 g/dL (6.0-8.3)
[2023-11-18] MEDS ORDERED: MECL-299 MT (11:18)
[2023-11-18] MEDS ORDERED: METF-415 MT (11:18)
[2023-11-18 11:33] VITALS: BP 118/57; PULSE 77; RESP 18; TEMP 36.89184; O2SAT 99
== END 2023-11-18 11:34 | disposition home or self-care (01) ==
LOC: ER 07:39
DX: R42 Dizziness and giddiness (principal); E11.65 Type 2 diabetes mellitus with hyperglycemia; E78.00 Pure hypercholesterolemia, unspecified; I10 Essential (primary) hypertension; Z79.899 Other long term (current) drug therapy; Z88.0 Allergy status to penicillin; Z88.6 Allergy status to analgesic agent; Z20.822 Contact with and (suspected) exposure to COVID-19
CPT/HCPCS: 99284; 96360; 96361; 87426; 80053; 81025; 82962; 85025; 84484; 36415; 93005; J8597; J7030

== ENCOUNTER 2023-11-18 23:41 | Emergency (ER) | payer BC, MEDICAID ==
[~2023-11-18] VITALS: Ht 170.2 cm; Wt 68.0 kg
[~2023-11-18 23:41] MED LIST changes: +METF-415 MT
[2023-11-18 23:47] VITALS: BP 132/76; PULSE 84; RESP 18; TEMP 98.7; O2SAT 100
== END 2023-11-19 01:22 | disposition home or self-care (01) ==
LOC: ER 23:41
DX: E11.65 Type 2 diabetes mellitus with hyperglycemia (principal); R68.2 Dry mouth, unspecified; E78.00 Pure hypercholesterolemia, unspecified; I10 Essential (primary) hypertension; Z79.899 Other long term (current) drug therapy; Z88.0 Allergy status to penicillin
CPT/HCPCS: 82962; 99283

== ENCOUNTER 2023-11-21 08:10 | Emergency (ER) | payer BC ==
[~2023-11-21] VITALS: Ht 165.1 cm; Wt 82.0 kg
[2023-11-21 08:16] VITALS: O2SAT 99
[2023-11-21 08:37] VITALS: BP 132/76; PULSE 89; RESP 16; TEMP 36.61404; O2SAT 95
== END 2023-11-21 08:38 | disposition home or self-care (01) ==
LOC: ER 08:10
DX: E11.65 Type 2 diabetes mellitus with hyperglycemia (principal); I10 Essential (primary) hypertension; F41.9 Anxiety disorder, unspecified; E78.00 Pure hypercholesterolemia, unspecified; Z88.0 Allergy status to penicillin; Z88.6 Allergy status to analgesic agent; Z88.8 Allergy status to other drugs, medicaments and biological substances; Z79.899 Other long term (current) drug therapy
CPT/HCPCS: 82962; 99281; 99282

== ENCOUNTER 2023-12-21 10:55 | Emergency (ER) | payer BC ==
[~2023-12-21] VITALS: Ht 162.6 cm; Wt 91.0 kg
[2023-12-21 11:24] VITALS: O2SAT 99
[2023-12-21 11:29] VITALS: TEMP 37.00296
[2023-12-21 11:41] LABS: CLARITY URINE CLEAR (CLEAR); COLOR URINE YELLOW (YELLOW); GLUCOSE URINE NEGATIVE (NEGATIVE); KETONES URINE NEGATIVE (NEGATIVE); LEUKOCYTE ESTERASE URINE 1+ (NEGATIVE); NITRITE URINE NEGATIVE (NEGATIVE); OCCULT BLOOD URINE NEGATIVE (NEGATIVE); PH URINE 5.5 (4.5-8.0); PROTEIN URINE TRACE (NEGATIVE); SPECIFIC GRAVITY URINE 1.022 (1.005-1.030); UROBILINOGEN URINE 0.2 E.U./dL (0.2-1.0)
[2023-12-21 11:54] LABS: BASOPHILS % 0.5 % (0.0-2.0); EOSINOPHILS % 1.1 % (0.0-5.0); LYMPHOCYTES % 37.4 % (20.0-50.0); MEAN CORPUSCULAR HEMOGLOBIN 28.4 pg (28.0-32.0); MEAN CORPUSCULAR HGB CONC 32.4 g/dL (31.0-37.0); MEAN CORPUSCULAR VOLUME 87.5 fL (81.0-99.0); MEAN PLATELET VOLUME 8.5 fl (7.4-10.4); PLATELET 196 x1000/uL (130-400); RED BLOOD CELL COUNT 4.22 mill/uL (4.2-5.4); RED CELL DISTRIBUTION WIDTH 14.7 % (11.6-14.6); WHITE BLOOD COUNT 7.8 x1000/uL (4.5-11.0)
[2023-12-21 12:03] LABS: MUCUS URINE 1+ /lpf (< = 2+); SQUAMOUS EPITHELIAL CELL URINE FEW /lpf (RARE/1+)
[2023-12-21 12:04] LABS: RBC URINE 0-2 /hpf (0-2); WBC URINE 0-2 /hpf (0-2)
[2023-12-21 12:05] LABS: CHLORIDE 105 mEq/L (98-107); POTASSIUM 3.6 mEq/L (3.5-5.1); SODIUM 140 mEq/L (136-145)
[2023-12-21 12:05] LABS: BACTERIA URINE TRACE
[2023-12-21 12:06] LABS: CARBON DIOXIDE 27 mEq/L (21-32)
[2023-12-21 12:07] LABS: CALCIUM 9.5 mg/dL (8.7-10.4)
[2023-12-21 12:11] LABS: CREATININE 0.8 mg/dL (0.6-1.0); GLUCOSE 113 mg/dL (70-105)
[2023-12-21 12:12] LABS: UREA NITROGEN BLOOD 15 mg/dL (9-23)
[2023-12-21 13:20] LABS: INR 0.9; PROTHROMBIN TIME 10.5 sec (9.6-11.0)
[2023-12-21 15:23] VITALS: BP 130/80; PULSE 84; RESP 16; O2SAT 99
== END 2023-12-21 15:24 | disposition home or self-care (01) ==
LOC: ER 10:55
DX: S80.12XA Contusion of left lower leg, initial encounter (principal); E11.9 Type 2 diabetes mellitus without complications; Z88.6 Allergy status to analgesic agent; Z88.0 Allergy status to penicillin; Z79.899 Other long term (current) drug therapy; X58.XXXA Exposure to other specified factors, initial encounter; Y93.89 Activity, other specified; Y92.89 Other specified places as the place of occurrence of the external cause; Y99.8 Other external cause status
CPT/HCPCS: 36415; 80048; 81003; 82962; 85025; 93971; 99284

== ENCOUNTER 2024-01-03 14:19 | Emergency (ER) | payer BC ==
[~2024-01-03] VITALS: Ht 162.6 cm; Wt 81.6 kg
[2024-01-03 14:23] VITALS: BP 128/72; PULSE 97; TEMP 98.3; O2SAT 100
[2024-01-03] MEDS: TETANUS, DIPHTHERIA, PERTUSSIS VAC/PF 0.5ML (>10YR OLD) IM ONE (18:00)
[2024-01-03] MEDS ORDERED: SULF1TAB48 MT (18:23)
[2024-01-03] MEDS ORDERED: METR-167 MT (18:23)
== END 2024-01-03 19:37 | disposition home or self-care (01) ==
LOC: ER 14:19
DX: S61.051A Open bite of right thumb without damage to nail, initial encounter (principal); I10 Essential (primary) hypertension; E11.9 Type 2 diabetes mellitus without complications; E78.00 Pure hypercholesterolemia, unspecified; Z88.0 Allergy status to penicillin; Z88.6 Allergy status to analgesic agent; Z79.899 Other long term (current) drug therapy; W54.0XXA Bitten by dog, initial encounter; Y93.89 Activity, other specified; Y92.89 Other specified places as the place of occurrence of the external cause; Y99.8 Other external cause status
CPT/HCPCS: 90471; 90715; 99283

== ENCOUNTER 2024-01-09 10:02 | Emergency (ER) | payer BC ==
[~2024-01-09] VITALS: Ht 170.2 cm; Wt 70.0 kg
[~2024-01-09 10:02] MED LIST changes: +SULF1TAB48 MT
[2024-01-09 10:08] VITALS: BP 126/83; PULSE 113; RESP 14; TEMP 97.7; O2SAT 99
[2024-01-09 10:36] LABS: BASOPHILS % 0.6 % (0.0-2.0); EOSINOPHILS % 3.5 % (0.0-5.0); HEMATOCRIT. 38.1 % (36.0-48.0); HEMOGLOBIN. 12.2 g/dL (12.0-16.0); LYMPHOCYTES % 36.2 % (20.0-50.0); MEAN CORPUSCULAR HEMOGLOBIN 28.3 pg (28.0-32.0); MEAN CORPUSCULAR VOLUME 88.5 fL (81.0-99.0); MEAN PLATELET VOLUME 8.4 fl (7.4-10.4); MONOCYTES % 8.1 % (2.0-8.0); NEUTROPHILS % 51.6 % (40.0-76.0); PLATELET 204 x1000/uL (130-400); RED BLOOD CELL COUNT 4.31 mill/uL (4.2-5.4); RED CELL DISTRIBUTION WIDTH 15.2 % (11.6-14.6); WHITE BLOOD COUNT 9.1 x1000/uL (4.5-11.0)
[2024-01-09 10:47] LABS: CARBON DIOXIDE 25 mEq/L (21-32); CHLORIDE 106 mEq/L (98-107); POTASSIUM 4.2 mEq/L (3.5-5.1); SODIUM 139 mEq/L (136-145)
[2024-01-09 10:48] LABS: CALCIUM 9.7 mg/dL (8.7-10.4)
[2024-01-09 10:53] LABS: CREATININE 0.8 mg/dL (0.6-1.0); GLUCOSE 102 mg/dL (70-105); UREA NITROGEN BLOOD 13 mg/dL (9-23)
[2024-01-09 10:54] LABS: ALANINE AMINOTRANSFERASE 28 IU/L (10-49); ASPARTATE AMINOTRANSFERASE 35 IU/L (<34); LACTIC ACID 2.9 mmol/L (0.4-2.0)
[2024-01-09 10:55] LABS: ALBUMIN 4.7 g/dL (3.2-4.8); BILIRUBIN DIRECT 0.1 mg/dL (<=3.0); BILIRUBIN TOTAL 0.4 mg/dL (0.1-1.0); PROTEIN TOTAL 7.4 g/dL (6.0-8.3)
[2024-01-09 10:58] LABS: CLARITY URINE CLEAR (CLEAR); COLOR URINE YELLOW (YELLOW); GLUCOSE URINE NEGATIVE (NEGATIVE); KETONES URINE NEGATIVE (NEGATIVE); LEUKOCYTE ESTERASE URINE 1+ (NEGATIVE); NITRITE URINE NEGATIVE (NEGATIVE); OCCULT BLOOD URINE NEGATIVE (NEGATIVE); PH URINE 5.5 (4.5-8.0); PROTEIN URINE NEGATIVE (NEGATIVE); UROBILINOGEN URINE 0.2 E.U./dL (0.2-1.0)
[2024-01-09 10:59] LABS: TROPONIN I HIGH SENSITIVITY < 4 ng/L (3.0-34)
[2024-01-09 11:13] LABS: SQUAMOUS EPITHELIAL CELL URINE RARE /lpf (RARE/1+)
[2024-01-09 11:14] LABS: BACTERIA URINE TRACE
[2024-01-09 11:15] LABS: MUCUS URINE TRACE /lpf (< = 2+); RBC URINE 0-2 /hpf (0-2); WBC URINE 0-2 /hpf (0-2)
[2024-01-09] MEDS: SODIUM CHLORIDE 0.9% 1,000 ML IV ONE (12:23)
== END 2024-01-09 15:22 | disposition home or self-care (01) ==
LOC: ER 10:02
DX: E87.20 Acidosis, unspecified (principal); E78.00 Pure hypercholesterolemia, unspecified; E11.9 Type 2 diabetes mellitus without complications; I10 Essential (primary) hypertension; Z88.0 Allergy status to penicillin; Z88.6 Allergy status to analgesic agent; Z79.899 Other long term (current) drug therapy
CPT/HCPCS: 80076; 80048; 81003; 83605; 85025; 84484; 36415; 93005; 96360; 99284; J7030; Z7610

== ENCOUNTER 2024-05-02 10:13 | Emergency (ER) | payer BC, MEDICAID ==
[~2024-05-02] VITALS: Ht 160 cm; Wt 81.0 kg
[~2024-05-02 10:13] MED LIST changes: +T3 PO
[2024-05-02 10:16] VITALS: O2SAT 100
[2024-05-02 10:34] VITALS: BP 108/75; PULSE 87; RESP 16; TEMP 36.8; O2SAT 98
[2024-05-02] MEDS ORDERED: HYDR-4001 MT (11:17)
[2024-05-02] MEDS ORDERED: ACET-2708 MT (11:26)
[2024-05-02] MEDS ORDERED: ONDA-239 PO (19:56)
== END 2024-05-02 12:18 | disposition home or self-care (01) ==
LOC: ER 10:13
DX: M79.18 Myalgia, other site (principal); E11.9 Type 2 diabetes mellitus without complications; E78.00 Pure hypercholesterolemia, unspecified; F10.90 Alcohol use, unspecified, uncomplicated; Z79.52 Long term (current) use of systemic steroids; Z79.84 Long term (current) use of oral hypoglycemic drugs; Z79.899 Other long term (current) drug therapy; Z88.0 Allergy status to penicillin; Z88.6 Allergy status to analgesic agent; Y90.9 Presence of alcohol in blood, level not specified
CPT/HCPCS: 99283

== ENCOUNTER 2024-05-02 18:13 | Emergency (ER) | payer MEDICAID, BC ==
[~2024-05-02] VITALS: Ht 167.6 cm; Wt 85.0 kg
[2024-05-02 18:16] VITALS: BP 118/78; PULSE 97; RESP 18; TEMP 37.1; O2SAT 99
[2024-05-02] MEDS ORDERED: ONDA-239 PO (19:56)
[2024-05-02] MEDS: ONDANSETRON 4MG ODT PO ONE (20:09)
== END 2024-05-02 20:26 | disposition home or self-care (01) ==
LOC: ER 18:13
DX: R10.84 Generalized abdominal pain (principal); R42 Dizziness and giddiness; R11.2 Nausea with vomiting, unspecified; T50.905A Adverse effect of unspecified drugs, medicaments and biological substances, initial encounter; E11.9 Type 2 diabetes mellitus without complications; E78.00 Pure hypercholesterolemia, unspecified; I10 Essential (primary) hypertension; F10.90 Alcohol use, unspecified, uncomplicated; Z79.52 Long term (current) use of systemic steroids; Z79.84 Long term (current) use of oral hypoglycemic drugs; Z79.899 Other long term (current) drug therapy; Z88.0 Allergy status to penicillin; Z88.6 Allergy status to analgesic agent; Y90.9 Presence of alcohol in blood, level not specified
CPT/HCPCS: 99283; Q0162

== ENCOUNTER 2024-06-04 18:02 | Emergency (ER) | payer BC, MEDICAID ==
[~2024-06-04] VITALS: Ht 160 cm; Wt 81.6 kg
[2024-06-04 18:03] VITALS: O2SAT 100
[2024-06-04 18:06] VITALS: BP 119/72; PULSE 109; RESP 14; TEMP 36.8; O2SAT 98
[2024-06-04 18:47] LABS: EOSINOPHILS % 1.5 % (0.0-5.0); HEMATOCRIT. 36.1 % (36.0-48.0); HEMOGLOBIN. 11.4 g/dL (12.0-16.0); LYMPHOCYTES % 45.3 % (20.0-50.0); MEAN CORPUSCULAR HEMOGLOBIN 27.6 pg (28.0-32.0); MEAN CORPUSCULAR HGB CONC 31.6 g/dL (31.0-37.0); MEAN CORPUSCULAR VOLUME 87.2 fL (81.0-99.0); MEAN PLATELET VOLUME 8.8 fl (7.4-10.4); MONOCYTES % 7.8 % (2.0-8.0); NEUTROPHILS % 44.4 % (40.0-76.0); PLATELET 184 x1000/uL (130-400); RED BLOOD CELL COUNT 4.14 mill/uL (4.2-5.4); RED CELL DISTRIBUTION WIDTH 14.8 % (11.6-14.6)
[2024-06-04 18:54] LABS: CHLORIDE 105 mEq/L (98-107); POTASSIUM 4.1 mEq/L (3.5-5.1); SODIUM 142 mEq/L (136-145)
[2024-06-04 18:55] LABS: CALCIUM 9.4 mg/dL (8.7-10.4); CARBON DIOXIDE 29 mEq/L (21-32)
[2024-06-04 19:00] LABS: CREATININE 0.8 mg/dL (0.6-1.0); GLUCOSE 128 mg/dL (70-105); UREA NITROGEN BLOOD 17 mg/dL (9-23)
[2024-06-04 19:12] LABS: TROPONIN I HIGH SENSITIVITY < 4 ng/L (3.0-34)
[2024-06-04] MEDS ORDERED: OMEP20CA14 PO (19:38)
[2024-06-04] MEDS: MAGNESIUM/ALUMINUM HYDROXIDE/SIMETHICONE 30ML UDC PO ONE (19:44)
[2024-06-04] MEDS: FAMOTIDINE 20MG TABLET PO ONE (19:45)
== END 2024-06-04 19:45 | disposition home or self-care (01) ==
LOC: ER 18:02
DX: K21.9 Gastro-esophageal reflux disease without esophagitis (principal); E11.9 Type 2 diabetes mellitus without complications; E78.00 Pure hypercholesterolemia, unspecified; I10 Essential (primary) hypertension; F10.90 Alcohol use, unspecified, uncomplicated; Z79.52 Long term (current) use of systemic steroids; Z79.84 Long term (current) use of oral hypoglycemic drugs; Z79.899 Other long term (current) drug therapy; Z88.0 Allergy status to penicillin; Z88.6 Allergy status to analgesic agent; Y90.9 Presence of alcohol in blood, level not specified
CPT/HCPCS: 36415; 71045; 80048; 83880; 84484; 85025; 93005; 99285

== ENCOUNTER 2024-06-09 12:11 | Emergency (ER) | payer BC ==
[~2024-06-09] VITALS: Ht 160 cm; Wt 82.0 kg
[2024-06-09 12:23] VITALS: O2SAT 97
[2024-06-09] MEDS ORDERED: ALBUTEROL (0.083%) 2.5MG/3ML NEB HHN STA (15:59)
[2024-06-09] MEDS ORDERED: IPRATROPIUM BROMIDE (0.02%) 0.5MG/2.5ML NEB HHN STA (15:59)
[2024-06-09] MEDS: PREDNISONE 20MG TABLET PO STA (15:59)
[2024-06-09] MEDS ORDERED: ALBU05 NEB (16:10)
[2024-06-09] MEDS ORDERED: P20 PO (16:10)
[2024-06-09] MEDS ORDERED: ALBU2.5V13 NEB (16:17)
[2024-06-09 16:23] VITALS: BP 106/73; PULSE 88; RESP 18; TEMP 36.9; O2SAT 97
== END 2024-06-09 16:26 | disposition home or self-care (01) ==
LOC: ER 12:11
DX: J45.901 Unspecified asthma with (acute) exacerbation (principal); E78.00 Pure hypercholesterolemia, unspecified; I10 Essential (primary) hypertension; E11.9 Type 2 diabetes mellitus without complications; Z88.0 Allergy status to penicillin; Z88.6 Allergy status to analgesic agent; Z79.899 Other long term (current) drug therapy
CPT/HCPCS: 99283; J7512

== ENCOUNTER 2024-06-10 20:53 | Emergency (ER) | payer BC ==
[~2024-06-10] VITALS: Ht 160 cm; Wt 81.0 kg
[2024-06-10 21:00] VITALS: O2SAT 96
[2024-06-10 21:10] VITALS: BP 137/83; TEMP 36.9
[2024-06-10 21:56] VITALS: PULSE 81; RESP 20; O2SAT 98
[2024-06-10] MEDS: IPRATROPIUM BROMIDE (0.02%) 0.5MG/2.5ML NEB HHN STA (21:56)
[2024-06-10] MEDS: ALBUTEROL (0.083%) 2.5MG/3ML NEB HHN STA (21:57)
== END 2024-06-10 23:48 | disposition home or self-care (01) ==
LOC: ER 20:53
DX: J45.901 Unspecified asthma with (acute) exacerbation (principal); E11.9 Type 2 diabetes mellitus without complications; E78.00 Pure hypercholesterolemia, unspecified; F10.90 Alcohol use, unspecified, uncomplicated; I10 Essential (primary) hypertension; Z79.52 Long term (current) use of systemic steroids; Z79.84 Long term (current) use of oral hypoglycemic drugs; Z79.899 Other long term (current) drug therapy; Z88.0 Allergy status to penicillin; Z88.6 Allergy status to analgesic agent; Y90.9 Presence of alcohol in blood, level not specified
CPT/HCPCS: 94644; 99285; Z7610; 94640

== ENCOUNTER 2024-06-15 11:21 | Emergency (ER) | payer BC ==
[~2024-06-15] VITALS: Ht 167.6 cm; Wt 87.0 kg
[2024-06-15 11:33] VITALS: O2SAT 96
[2024-06-15 11:37] VITALS: BP 105/66; TEMP 36.8
[2024-06-15] MEDS: ALBUTEROL (0.083%) 2.5MG/3ML NEB HHN STA (12:49)
[2024-06-15 12:50] VITALS: PULSE 92; RESP 18; O2SAT 97
[2024-06-15] MEDS: IPRATROPIUM BROMIDE (0.02%) 0.5MG/2.5ML NEB HHN STA (12:50)
== END 2024-06-15 13:27 | disposition home or self-care (01) ==
LOC: ER 11:21
DX: J45.901 Unspecified asthma with (acute) exacerbation (principal); I10 Essential (primary) hypertension; E78.00 Pure hypercholesterolemia, unspecified; E11.9 Type 2 diabetes mellitus without complications; Z79.899 Other long term (current) drug therapy; Z79.84 Long term (current) use of oral hypoglycemic drugs; Z79.52 Long term (current) use of systemic steroids; Z88.6 Allergy status to analgesic agent; Z88.0 Allergy status to penicillin
CPT/HCPCS: 71045; 94640; 99283; Z7610 ×2; 94070; 94664

== ENCOUNTER 2024-06-18 21:15 | Emergency (ER) | payer BC ==
[~2024-06-18] VITALS: Ht 167.6 cm; Wt 82.0 kg
[2024-06-18 21:34] VITALS: O2SAT 99
[2024-06-18 23:37] VITALS: BP 115/77; PULSE 88; RESP 16; TEMP 37; O2SAT 97
== END 2024-06-18 23:43 | disposition home or self-care (01) ==
LOC: ER 21:15
DX: R09.81 Nasal congestion (principal); Z79.52 Long term (current) use of systemic steroids; Z79.84 Long term (current) use of oral hypoglycemic drugs; Z79.899 Other long term (current) drug therapy; Z88.6 Allergy status to analgesic agent; Z88.0 Allergy status to penicillin
CPT/HCPCS: 99281

== ENCOUNTER 2024-06-21 17:32 | Emergency (ER) | payer BC ==
[~2024-06-21] VITALS: Ht 170.2 cm; Wt 90.7 kg
[2024-06-21 17:45] VITALS: O2SAT 98
[2024-06-21 19:29] LABS: BASOPHILS % 0.7 % (0.0-2.0); EOSINOPHILS % 1.1 % (0.0-5.0); HEMATOCRIT. 35.9 % (36.0-48.0); HEMOGLOBIN. 11.4 g/dL (12.0-16.0); LYMPHOCYTES % 35.2 % (20.0-50.0); MEAN CORPUSCULAR HEMOGLOBIN 27.9 pg (28.0-32.0); MEAN CORPUSCULAR HGB CONC 31.9 g/dL (31.0-37.0); MEAN CORPUSCULAR VOLUME 87.4 fL (81.0-99.0); MEAN PLATELET VOLUME 8.7 fl (7.4-10.4); MONOCYTES % 6.9 % (2.0-8.0); NEUTROPHILS % 56.1 % (40.0-76.0); PLATELET 184 x1000/uL (130-400); RED BLOOD CELL COUNT 4.11 mill/uL (4.2-5.4); RED CELL DISTRIBUTION WIDTH 15.3 % (11.6-14.6); WHITE BLOOD COUNT 6.8 x1000/uL (4.5-11.0)
[2024-06-21 19:36] LABS: CARBON DIOXIDE 28 mEq/L (21-32); CHLORIDE 106 mEq/L (98-107); SODIUM 144 mEq/L (136-145)
[2024-06-21 19:37] LABS: CALCIUM 9.5 mg/dL (8.7-10.4)
[2024-06-21 19:42] LABS: CREATININE 0.7 mg/dL (0.6-1.0); GLUCOSE 172 mg/dL (70-105); UREA NITROGEN BLOOD 14 mg/dL (9-23)
[2024-06-21 19:44] LABS: ALANINE AMINOTRANSFERASE 17 IU/L (10-49); ALBUMIN 4.2 g/dL (3.2-4.8); ASPARTATE AMINOTRANSFERASE 20 IU/L (<34); BILIRUBIN TOTAL 0.4 mg/dL (0.1-1.0); PROTEIN TOTAL 6.5 g/dL (6.0-8.3)
[2024-06-21] MEDS ORDERED: OXYM30SP26 BOTHNSTRLS (19:49)
[2024-06-21 20:04] VITALS: BP 125/70; PULSE 90; RESP 18; TEMP 36.7; O2SAT 98
== END 2024-06-21 20:05 ==
LOC: ER 17:32
DX: R05.9 Cough, unspecified (principal); R09.81 Nasal congestion; I10 Essential (primary) hypertension; Z88.6 Allergy status to analgesic agent; Z88.0 Allergy status to penicillin; Z79.899 Other long term (current) drug therapy
CPT/HCPCS: 36415; 71045; 80053; 85025; 99284

== ENCOUNTER 2024-06-29 07:53 | Emergency (ER) | payer BC, MEDICAID ==
[~2024-06-29] VITALS: Ht 160 cm; Wt 82.0 kg
[~2024-06-29 07:53] MED LIST changes: +OXYM30SP26 BOTHNSTRLS
[2024-06-29 07:54] VITALS: O2SAT 100
[2024-06-29 07:58] VITALS: BP 122/58; PULSE 90; RESP 20; TEMP 36.7; O2SAT 99
== END 2024-06-29 08:37 | disposition home or self-care (01) ==
LOC: ER 07:53
DX: J45.909 Unspecified asthma, uncomplicated (principal); E11.9 Type 2 diabetes mellitus without complications; I10 Essential (primary) hypertension; Z79.899 Other long term (current) drug therapy; Z79.84 Long term (current) use of oral hypoglycemic drugs; Z79.52 Long term (current) use of systemic steroids; Z88.6 Allergy status to analgesic agent; Z88.0 Allergy status to penicillin
CPT/HCPCS: 99281

== ENCOUNTER 2024-07-07 11:27 | Emergency (ER) | payer MEDICAID ==
[~2024-07-07] VITALS: Ht 160 cm; Wt 78.0 kg
[2024-07-07 12:16] VITALS: O2SAT 100
[2024-07-07 15:17] VITALS: BP 123/69; PULSE 72; RESP 18; TEMP 36.8; O2SAT 99
== END 2024-07-07 15:58 | disposition home or self-care (01) ==
LOC: ER 11:27
DX: M79.661 Pain in right lower leg (principal); M79.662 Pain in left lower leg; E11.9 Type 2 diabetes mellitus without complications; E78.00 Pure hypercholesterolemia, unspecified; I10 Essential (primary) hypertension; J45.909 Unspecified asthma, uncomplicated; Z79.899 Other long term (current) drug therapy; Z88.0 Allergy status to penicillin; Z88.6 Allergy status to analgesic agent
CPT/HCPCS: 93970; 99284

== ENCOUNTER 2024-07-21 09:48 | Emergency (ER) | payer MEDICAID ==
[2024-07-21 09:55] VITALS: PULSE 120; RESP 18; O2SAT 99
[2024-07-21] MEDS: KETOROLAC 30MG/ML VIAL IM ONE (11:13)
[2024-07-21] MEDS: CYCLOBENZAPRINE 10MG TABLET PO ONE (11:13)
[2024-07-21] MEDS ORDERED: CYCL10TA21 MT (11:54)
[2024-07-21] MEDS ORDERED: KETO10TA2 MT (11:54)
== END 2024-07-21 12:03 | disposition home or self-care (01) ==
LOC: ER 09:48
DX: M62.838 Other muscle spasm (principal); E11.9 Type 2 diabetes mellitus without complications; E78.00 Pure hypercholesterolemia, unspecified; I10 Essential (primary) hypertension; J45.909 Unspecified asthma, uncomplicated; Z79.52 Long term (current) use of systemic steroids; Z79.84 Long term (current) use of oral hypoglycemic drugs; Z79.899 Other long term (current) drug therapy; Z82.49 Family history of ischemic heart disease and other diseases of the circulatory system; Z88.0 Allergy status to penicillin; Z88.6 Allergy status to analgesic agent
CPT/HCPCS: 99283; 96372; J1885

== ENCOUNTER 2024-07-28 18:36 | Emergency (ER) | payer MEDICAID ==
[~2024-07-28] VITALS: Ht 162.6 cm; Wt 70.0 kg
[~2024-07-28 18:36] MED LIST changes: +CYCL10TA21 MT; +KETO10TA2 MT
[2024-07-28 18:37] VITALS: BP 163/90; PULSE 99; RESP 19; TEMP 36.7; O2SAT 99
== END 2024-07-28 20:45 | disposition left against medical advice (07) ==
LOC: ER 18:36
DX: F41.9 Anxiety disorder, unspecified (principal); Z79.899 Other long term (current) drug therapy; Z53.21 Procedure and treatment not carried out due to patient leaving prior to being seen by health care provider
CPT/HCPCS: 93005

== ENCOUNTER 2024-07-30 21:05 | Emergency (ER) | payer MEDICAID ==
[~2024-07-30] VITALS: Ht 157.5 cm; Wt 81.0 kg
[2024-07-30 21:53] VITALS: O2SAT 100
[2024-07-30 22:10] VITALS: BP 100/66; PULSE 102; RESP 20; TEMP 36.7; O2SAT 98
== END 2024-07-30 23:05 | disposition left against medical advice (07) ==
LOC: ER 21:05
DX: J45.909 Unspecified asthma, uncomplicated (principal); R07.9 Chest pain, unspecified; Z53.21 Procedure and treatment not carried out due to patient leaving prior to being seen by health care provider

== ENCOUNTER 2024-08-03 09:16 | Emergency (ER) | payer MEDICAID ==
[~2024-08-03] VITALS: Ht 157.5 cm; Wt 81.0 kg
[2024-08-03 09:22] VITALS: O2SAT 99
[2024-08-03 10:03] LABS: BASOPHILS % 0.8 % (0.0-2.0); EOSINOPHILS % 1.6 % (0.0-5.0); HEMATOCRIT. 37.2 % (36.0-48.0); HEMOGLOBIN. 11.9 g/dL (12.0-16.0); LYMPHOCYTES % 32.9 % (20.0-50.0); MEAN CORPUSCULAR HEMOGLOBIN 27.7 pg (28.0-32.0); MEAN CORPUSCULAR VOLUME 86.6 fL (81.0-99.0); MEAN PLATELET VOLUME 9.1 fl (7.4-10.4); MONOCYTES % 7.9 % (2.0-8.0); NEUTROPHILS % 56.8 % (40.0-76.0); PLATELET 182 x1000/uL (130-400); RED CELL DISTRIBUTION WIDTH 15.3 % (11.6-14.6); WHITE BLOOD COUNT 6.2 x1000/uL (4.5-11.0)
[2024-08-03 10:11] LABS: CHLORIDE 106 mEq/L (98-107)
[2024-08-03 10:12] LABS: CARBON DIOXIDE 25 mEq/L (21-32); POTASSIUM 4.1 mEq/L (3.5-5.1); SODIUM 143 mEq/L (136-145)
[2024-08-03 10:13] LABS: CALCIUM 9.1 mg/dL (8.7-10.4)
[2024-08-03 10:18] LABS: CREATININE 0.6 mg/dL (0.6-1.0); GLUCOSE 137 mg/dL (70-105); UREA NITROGEN BLOOD 12 mg/dL (9-23)
[2024-08-03 10:32] LABS: TROPONIN I HIGH SENSITIVITY < 4 ng/L (3.0-34)
[2024-08-03 10:45] LABS: CLARITY URINE CLOUDY (CLEAR); COLOR URINE YELLOW (YELLOW); GLUCOSE URINE NEGATIVE (NEGATIVE); KETONES URINE NEGATIVE (NEGATIVE); LEUKOCYTE ESTERASE URINE TRACE (NEGATIVE); NITRITE URINE NEGATIVE (NEGATIVE); OCCULT BLOOD URINE NEGATIVE (NEGATIVE); PH URINE 6.5 (4.5-8.0); PROTEIN URINE NEGATIVE (NEGATIVE); SPECIFIC GRAVITY URINE 1.023 (1.005-1.030)
[2024-08-03] MEDS: HYDROCODONE/ACETAMINOPHEN 5/325MG TABLET PO ONE (10:51)
[2024-08-03] MEDS ORDERED: HYDR-4001 MT (11:04)
[2024-08-03 11:08] LABS: BACTERIA URINE 1+; RBC URINE 0-2 /hpf (0-2); SQUAMOUS EPITHELIAL CELL URINE FEW /lpf (RARE/1+); WBC URINE 0-2 /hpf (0-2); YEAST URINE NONE SEEN
[2024-08-03 11:11] VITALS: BP 124/68; PULSE 80; RESP 15; TEMP 36.7; O2SAT 99
== END 2024-08-03 11:11 | disposition home or self-care (01) ==
LOC: ER 09:16
DX: R07.89 Other chest pain (principal); F41.9 Anxiety disorder, unspecified; J45.909 Unspecified asthma, uncomplicated; F10.90 Alcohol use, unspecified, uncomplicated; Z79.52 Long term (current) use of systemic steroids; Z79.84 Long term (current) use of oral hypoglycemic drugs; Z79.899 Other long term (current) drug therapy; Z82.49 Family history of ischemic heart disease and other diseases of the circulatory system; Z88.0 Allergy status to penicillin; Z88.6 Allergy status to analgesic agent; Y90.9 Presence of alcohol in blood, level not specified
CPT/HCPCS: 36415; 71045; 80048; 81003; 84484; 85025; 93005; 99285

== ENCOUNTER 2024-08-11 22:26 | Emergency (ER) | payer MEDICAID ==
[~2024-08-11] VITALS: Ht 162.6 cm; Wt 85.0 kg
[2024-08-11 23:18] VITALS: BP 121/73; TEMP 37; O2SAT 99
[2024-08-11 23:19] VITALS: PULSE 117; RESP 20; O2SAT 96
[2024-08-11 23:47] LABS: BASOPHILS % 0.6 % (0.0-2.0); EOSINOPHILS % 1.1 % (0.0-5.0); HEMATOCRIT. 36.2 % (36.0-48.0); HEMOGLOBIN. 11.8 g/dL (12.0-16.0); LYMPHOCYTES % 33.8 % (20.0-50.0); MEAN CORPUSCULAR HEMOGLOBIN 28.2 pg (28.0-32.0); MEAN CORPUSCULAR HGB CONC 32.5 g/dL (31.0-37.0); MEAN CORPUSCULAR VOLUME 86.7 fL (81.0-99.0); MEAN PLATELET VOLUME 8.7 fl (7.4-10.4); MONOCYTES % 7.2 % (2.0-8.0); NEUTROPHILS % 57.3 % (40.0-76.0); PLATELET 180 x1000/uL (130-400); RED BLOOD CELL COUNT 4.18 mill/uL (4.2-5.4); RED CELL DISTRIBUTION WIDTH 15.7 % (11.6-14.6); WHITE BLOOD COUNT 8.5 x1000/uL (4.5-11.0)
[2024-08-11 23:55] LABS: CARBON DIOXIDE 27 mEq/L (21-32); CHLORIDE 105 mEq/L (98-107); POTASSIUM 3.6 mEq/L (3.5-5.1); SODIUM 141 mEq/L (136-145)
[2024-08-11 23:56] LABS: CALCIUM 9.4 mg/dL (8.7-10.4)
[2024-08-12] LABS: CREATININE 0.7 mg/dL (0.6-1.0); GLUCOSE 128 mg/dL (70-105)
[2024-08-12 00:01] LABS: UREA NITROGEN BLOOD 22 mg/dL (9-23)
[2024-08-12 00:13] LABS: TROPONIN I HIGH SENSITIVITY < 4 ng/L (3.0-34)
[2024-08-12] MEDS ORDERED: P50 MT (00:14)
[2024-08-12] MEDS ORDERED: ALBU05 NEB (00:14)
== END 2024-08-12 00:27 | disposition home or self-care (01) ==
LOC: ER 22:26
DX: J45.901 Unspecified asthma with (acute) exacerbation (principal); E78.00 Pure hypercholesterolemia, unspecified; F41.9 Anxiety disorder, unspecified; Z79.899 Other long term (current) drug therapy; Z88.0 Allergy status to penicillin; Z88.6 Allergy status to analgesic agent
CPT/HCPCS: 36415; 71045; 80048; 84484; 85025; 93005; 99285

== ENCOUNTER 2024-09-09 15:24 | Emergency (ER) | payer MEDICAID ==
[~2024-09-09] VITALS: Ht 154.9 cm; Wt 82.0 kg
[~2024-09-09 15:24] MED LIST changes: +P50 MT
[2024-09-09 15:25] VITALS: O2SAT 99
[2024-09-09 15:27] VITALS: BP 112/73; PULSE 96; RESP 16; TEMP 36.8; O2SAT 98
[2024-09-09] MEDS: CYCLOBENZAPRINE 10MG TABLET PO SCH (17:03)
[2024-09-09] MEDS ORDERED: NAPR-1176 MT (17:24)
== END 2024-09-09 19:35 | disposition home or self-care (01) ==
LOC: ER 15:24
DX: M54.2 Cervicalgia (principal); M25.512 Pain in left shoulder; M79.18 Myalgia, other site; E78.00 Pure hypercholesterolemia, unspecified; J45.909 Unspecified asthma, uncomplicated; Z79.1 Long term (current) use of non-steroidal anti-inflammatories (NSAID); Z79.52 Long term (current) use of systemic steroids; Z79.84 Long term (current) use of oral hypoglycemic drugs; Z79.899 Other long term (current) drug therapy; Z88.0 Allergy status to penicillin; Z88.6 Allergy status to analgesic agent
CPT/HCPCS: 99283

== ENCOUNTER 2024-09-11 12:55 | Emergency (ER) | payer MEDICAID ==
[~2024-09-11] VITALS: Ht 154.9 cm; Wt 81.6 kg
[~2024-09-11 12:55] MED LIST changes: +NAPR-1176 MT
[2024-09-11 13:08] VITALS: O2SAT 100
[2024-09-11] MEDS ORDERED: LIDO700A30 TP (14:33)
[2024-09-11] MEDS ORDERED: ACET-2708 MT (14:33)
[2024-09-11] MEDS: KETOROLAC 30MG/ML VIAL IM ONE (14:45)
[2024-09-11] MEDS: CYCLOBENZAPRINE 10MG TABLET PO ONE (14:45)
[2024-09-11] MEDS: LIDOCAINE 5% PATCH TOP ONE (14:45)
[2024-09-11 14:50] VITALS: BP 124/77; PULSE 80; RESP 12; TEMP 37.1; O2SAT 100
== END 2024-09-11 14:54 | disposition home or self-care (01) ==
LOC: ER 12:55
DX: M54.2 Cervicalgia (principal); F41.9 Anxiety disorder, unspecified; E78.00 Pure hypercholesterolemia, unspecified; J45.909 Unspecified asthma, uncomplicated; Z88.6 Allergy status to analgesic agent; Z88.0 Allergy status to penicillin; Z79.899 Other long term (current) drug therapy
CPT/HCPCS: 99283; 96372; J1885

== ENCOUNTER 2024-09-13 09:34 | Emergency (ER) | payer BC, MEDICAID ==
[~2024-09-13] VITALS: Ht 154.9 cm; Wt 71.0 kg
[~2024-09-13 09:34] MED LIST changes: +LIDO700A30 TP
[2024-09-13 09:42] VITALS: BP 113/72; PULSE 100; RESP 16; TEMP 36.6; O2SAT 99
[2024-09-13] MEDS: KETOROLAC 30MG/ML VIAL IM STA (10:23)
[2024-09-13 10:39] LABS: BASOPHILS % 0.7 % (0.0-2.0); EOSINOPHILS % 1.9 % (0.0-5.0); HEMATOCRIT. 35.6 % (36.0-48.0); HEMOGLOBIN. 11.6 g/dL (12.0-16.0); LYMPHOCYTES % 43.5 % (20.0-50.0); MEAN CORPUSCULAR HEMOGLOBIN 28.5 pg (28.0-32.0); MEAN CORPUSCULAR HGB CONC 32.7 g/dL (31.0-37.0); MEAN CORPUSCULAR VOLUME 87.1 fL (81.0-99.0); MEAN PLATELET VOLUME 8.4 fl (7.4-10.4); MONOCYTES % 6.1 % (2.0-8.0); NEUTROPHILS % 47.8 % (40.0-76.0); PLATELET 168 x1000/uL (130-400); RED BLOOD CELL COUNT 4.09 mill/uL (4.2-5.4)
[2024-09-13 10:45] LABS: CHLORIDE 106 mEq/L (98-107); POTASSIUM 3.6 mEq/L (3.5-5.1); SODIUM 143 mEq/L (136-145)
[2024-09-13 10:46] LABS: CARBON DIOXIDE 29 mEq/L (21-32)
[2024-09-13 10:51] LABS: CREATININE 0.7 mg/dL (0.6-1.0); GLUCOSE 147 mg/dL (70-105); UREA NITROGEN BLOOD 12 mg/dL (9-23)
[2024-09-13 10:52] LABS: TROPONIN I HIGH SENSITIVITY < 4 ng/L (3.0-34)
[2024-09-13] MEDS: ACETAMINOPHEN 325MG TABLET PO ONE (11:15)
== END 2024-09-13 11:16 | disposition home or self-care (01) ==
LOC: ER 09:34
DX: M54.12 Radiculopathy, cervical region (principal); I10 Essential (primary) hypertension; J45.909 Unspecified asthma, uncomplicated; Z88.0 Allergy status to penicillin; Z88.6 Allergy status to analgesic agent; Z79.899 Other long term (current) drug therapy
CPT/HCPCS: 99284; 71045; 80048; 83880; 85025; 84484; 36415; 96372; J1885

== ENCOUNTER 2024-09-14 07:10 | Emergency (ER) | payer MEDICAID ==
[~2024-09-14] VITALS: Ht 154.9 cm; Wt 82.0 kg
[2024-09-14 07:15] VITALS: O2SAT 99
[2024-09-14] MEDS: KETOROLAC 15MG/ML VIAL IM ONE (07:51)
[2024-09-14 08:00] VITALS: BP 120/79; PULSE 88; RESP 19; TEMP 36.7; O2SAT 99
== END 2024-09-14 08:12 | disposition home or self-care (01) ==
LOC: ER 07:10
DX: M25.512 Pain in left shoulder (principal); E78.00 Pure hypercholesterolemia, unspecified; J45.909 Unspecified asthma, uncomplicated; F10.90 Alcohol use, unspecified, uncomplicated; Z79.1 Long term (current) use of non-steroidal anti-inflammatories (NSAID); Z79.52 Long term (current) use of systemic steroids; Z79.84 Long term (current) use of oral hypoglycemic drugs; Z79.899 Other long term (current) drug therapy; Z88.0 Allergy status to penicillin; Z88.6 Allergy status to analgesic agent; Y90.9 Presence of alcohol in blood, level not specified
CPT/HCPCS: 96372; 99283; J1885; Z7610

== ENCOUNTER 2024-09-15 09:26 | Emergency (ER) | payer MEDICAID ==
[~2024-09-15] VITALS: Ht 154.9 cm; Wt 73.0 kg
[2024-09-15 09:55] VITALS: TEMP 36.7; O2SAT 97
[2024-09-15] MEDS: KETOROLAC 15MG/ML VIAL IM ONE (10:21)
[2024-09-15 10:28] VITALS: BP 125/71; PULSE 94; RESP 16; O2SAT 99
== END 2024-09-15 10:31 | disposition home or self-care (01) ==
LOC: ER 09:26
DX: M54.2 Cervicalgia (principal); M25.512 Pain in left shoulder; E11.9 Type 2 diabetes mellitus without complications; E78.00 Pure hypercholesterolemia, unspecified; I10 Essential (primary) hypertension; J45.909 Unspecified asthma, uncomplicated; Z79.1 Long term (current) use of non-steroidal anti-inflammatories (NSAID); Z79.52 Long term (current) use of systemic steroids; Z79.84 Long term (current) use of oral hypoglycemic drugs; Z79.899 Other long term (current) drug therapy; Z88.0 Allergy status to penicillin; Z88.6 Allergy status to analgesic agent
CPT/HCPCS: 99283; 96372; J1885

== ENCOUNTER 2024-10-12 20:06 | Emergency (ER) | payer MEDICAID ==
[~2024-10-12] VITALS: Ht 154.9 cm; Wt 82.0 kg
[2024-10-12] MEDS ORDERED: METHYLPREDNISOLONE 40MG/ML INJ IV ONE (20:45)
[2024-10-12] MEDS ORDERED: IPRATROPIUM/ALBUTEROL 0.5-3(2.5)MG/3ML NEB HHN ONE (20:45)
[2024-10-12] MEDS: METHYLPREDNISOLONE SOD SUCC 125MG/2ML (ACT-O-VIAL) IM SCH (21:22)
[2024-10-12 22:40] VITALS: PULSE 78; RESP 20; O2SAT 97
[2024-10-12] MEDS: IPRATROPIUM/ALBUTEROL 0.5-3(2.5)MG/3ML NEB HHN SCH (22:41)
[2024-10-12 22:51] LABS: BASOPHILS % 0.7 % (0.0-2.0); EOSINOPHILS % 1.1 % (0.0-5.0); HEMATOCRIT. 36.7 % (36.0-48.0); HEMOGLOBIN. 12.0 g/dL (12.0-16.0); LYMPHOCYTES % 35.2 % (20.0-50.0); MEAN PLATELET VOLUME 8.5 fl (7.4-10.4); MONOCYTES % 6.6 % (2.0-8.0); NEUTROPHILS % 56.4 % (40.0-76.0); PLATELET 185 x1000/uL (130-400); RED BLOOD CELL COUNT 4.21 mill/uL (4.2-5.4); RED CELL DISTRIBUTION WIDTH 14.4 % (11.6-14.6)
[2024-10-12 23:00] LABS: CREATININE 0.9 mg/dL (0.6-1.0); UREA NITROGEN BLOOD 16 mg/dL (9-23)
[2024-10-12 23:01] LABS: TROPONIN I HIGH SENSITIVITY < 4 ng/L (3.0-34)
[2024-10-13] MEDS ORDERED: ALBU2SYR23 MT (00:18)
[2024-10-13 00:24] VITALS: BP 130/74; PULSE 82; RESP 18; TEMP 36.8; O2SAT 97
== END 2024-10-13 00:40 | disposition home or self-care (01) ==
LOC: ER 20:06
DX: J45.901 Unspecified asthma with (acute) exacerbation (principal); E11.9 Type 2 diabetes mellitus without complications; I10 Essential (primary) hypertension; Z79.1 Long term (current) use of non-steroidal anti-inflammatories (NSAID); Z79.52 Long term (current) use of systemic steroids; Z79.84 Long term (current) use of oral hypoglycemic drugs; Z79.899 Other long term (current) drug therapy; Z88.0 Allergy status to penicillin; Z88.6 Allergy status to analgesic agent
CPT/HCPCS: 80048; 85025; 84484; 36415; 71045; 94640; 93005; 96372; 99285; J2919; Z7610 ×4; 94664

== ENCOUNTER 2024-10-26 14:11 | Emergency (ER) | payer MEDICAID ==
[~2024-10-26] VITALS: Ht 154.9 cm; Wt 81.0 kg
[~2024-10-26 14:11] MED LIST changes: +ALBU2SYR23 MT
[2024-10-26 14:18] VITALS: TEMP 36.7; O2SAT 99
[2024-10-26] MEDS: HYDROCODONE/ACETAMINOPHEN 5/325MG TABLET PO ONE (17:23)
[2024-10-26 18:12] LABS: BASOPHILS % 0.8 % (0.0-2.0); EOSINOPHILS % 1.2 % (0.0-5.0); HEMATOCRIT. 35.3 % (36.0-48.0); HEMOGLOBIN. 11.5 g/dL (12.0-16.0); LYMPHOCYTES % 36.9 % (20.0-50.0); MEAN PLATELET VOLUME 8.8 fl (7.4-10.4); MONOCYTES % 7.7 % (2.0-8.0); NEUTROPHILS % 53.4 % (40.0-76.0); PLATELET 166 x1000/uL (130-400); RED BLOOD CELL COUNT 4.02 mill/uL (4.2-5.4); RED CELL DISTRIBUTION WIDTH 14.7 % (11.6-14.6)
[2024-10-26 18:28] LABS: CREATININE 0.8 mg/dL (0.6-1.0); UREA NITROGEN BLOOD 16 mg/dL (9-23)
[2024-10-26 18:29] LABS: TROPONIN I HIGH SENSITIVITY < 4 ng/L (3.0-34)
[2024-10-26] MEDS ORDERED: ACET-2708 MT (19:20)
[2024-10-26 19:26] VITALS: BP 112/63; PULSE 78; RESP 16; O2SAT 98
== END 2024-10-26 19:30 | disposition home or self-care (01) ==
LOC: ER 14:11
DX: R07.89 Other chest pain (principal); E11.9 Type 2 diabetes mellitus without complications; I10 Essential (primary) hypertension; Z79.899 Other long term (current) drug therapy; Z88.0 Allergy status to penicillin; Z88.6 Allergy status to analgesic agent
CPT/HCPCS: 36415; 71045; 80048; 84484; 85025; 93005; 99285

== ENCOUNTER 2024-10-28 09:13 | Emergency (ER) | payer MEDICAID ==
[~2024-10-28] VITALS: Ht 154.9 cm; Wt 82.0 kg
[2024-10-28 09:14] VITALS: O2SAT 100
[2024-10-28 09:18] VITALS: BP 174/78; PULSE 85; RESP 16; TEMP 36.9; O2SAT 100
[2024-10-28] MEDS ORDERED: FAMO-135 MT (09:31)
[2024-10-29] MEDS ORDERED: MAG355OR21 MT (20:48)
== END 2024-10-28 09:38 | disposition home or self-care (01) ==
LOC: ER 09:13
DX: K21.9 Gastro-esophageal reflux disease without esophagitis (principal); E11.9 Type 2 diabetes mellitus without complications; I10 Essential (primary) hypertension; Z76.0 Encounter for issue of repeat prescription; Z79.1 Long term (current) use of non-steroidal anti-inflammatories (NSAID); Z79.52 Long term (current) use of systemic steroids; Z79.84 Long term (current) use of oral hypoglycemic drugs; Z79.899 Other long term (current) drug therapy; Z88.0 Allergy status to penicillin; Z88.6 Allergy status to analgesic agent
CPT/HCPCS: 99283

== ENCOUNTER 2024-10-29 16:41 | Emergency (ER) | payer MEDICAID ==
[~2024-10-29] VITALS: Ht 154.9 cm; Wt 81.0 kg
[2024-10-29 17:02] VITALS: O2SAT 100
[2024-10-29 19:49] LABS: BASOPHILS % 0.6 % (0.0-2.0); EOSINOPHILS % 1.1 % (0.0-5.0); HEMATOCRIT. 35.4 % (36.0-48.0); HEMOGLOBIN. 11.5 g/dL (12.0-16.0); LYMPHOCYTES % 39.8 % (20.0-50.0); MEAN PLATELET VOLUME 8.8 fl (7.4-10.4); MONOCYTES % 7.5 % (2.0-8.0); NEUTROPHILS % 51.0 % (40.0-76.0); PLATELET 179 x1000/uL (130-400); RED BLOOD CELL COUNT 4.04 mill/uL (4.2-5.4); RED CELL DISTRIBUTION WIDTH 14.4 % (11.6-14.6)
[2024-10-29 19:59] LABS: CREATININE 0.7 mg/dL (0.6-1.0); UREA NITROGEN BLOOD 12 mg/dL (9-23)
[2024-10-29 20:01] LABS: ASPARTATE AMINOTRANSFERASE 22 IU/L (<34); BILIRUBIN DIRECT 0.1 mg/dL (<=3.0); BILIRUBIN TOTAL 0.4 mg/dL (0.1-1.0); PROTEIN TOTAL 6.6 g/dL (6.0-8.3); TROPONIN I HIGH SENSITIVITY < 4 ng/L (3.0-34)
[2024-10-29] MEDS: MAGNESIUM/ALUMINUM HYDROXIDE/SIMETHICONE 30ML UDC PO ONE (20:04)
[2024-10-29] MEDS ORDERED: MAG355OR21 MT (20:48)
[2024-10-29 21:25] VITALS: BP 118/73; PULSE 68; RESP 16; TEMP 36.7; O2SAT 100
== END 2024-10-29 21:25 | disposition home or self-care (01) ==
LOC: ER 16:41
DX: K21.9 Gastro-esophageal reflux disease without esophagitis (principal); I10 Essential (primary) hypertension; E11.9 Type 2 diabetes mellitus without complications; Z88.0 Allergy status to penicillin; Z88.6 Allergy status to analgesic agent; Z79.899 Other long term (current) drug therapy
CPT/HCPCS: 36415; 80048; 80076; 84484; 85025; 93005; 99284

== ENCOUNTER 2024-11-06 12:05 | Emergency (ER) | payer MEDICAID ==
[~2024-11-06] VITALS: Ht 172.7 cm; Wt 75.0 kg
[2024-11-06 12:14] VITALS: O2SAT 100
[2024-11-06 12:54] LABS: BASOPHILS % 0.6 % (0.0-2.0); EOSINOPHILS % 1.4 % (0.0-5.0); HEMATOCRIT. 35.5 % (36.0-48.0); HEMOGLOBIN. 11.5 g/dL (12.0-16.0); LYMPHOCYTES % 40.2 % (20.0-50.0); MEAN PLATELET VOLUME 8.6 fl (7.4-10.4); MONOCYTES % 8.3 % (2.0-8.0); NEUTROPHILS % 49.5 % (40.0-76.0); PLATELET 202 x1000/uL (130-400); RED BLOOD CELL COUNT 4.04 mill/uL (4.2-5.4); RED CELL DISTRIBUTION WIDTH 15.3 % (11.6-14.6)
[2024-11-06 13:10] LABS: CREATININE 0.8 mg/dL (0.6-1.0); UREA NITROGEN BLOOD 16 mg/dL (9-23)
[2024-11-06 13:54] LABS: CLARITY URINE CLEAR (CLEAR); COLOR URINE YELLOW (YELLOW); GLUCOSE URINE NEGATIVE (NEGATIVE); KETONES URINE NEGATIVE (NEGATIVE); LEUKOCYTE ESTERASE URINE NEGATIVE (NEGATIVE); NITRITE URINE NEGATIVE (NEGATIVE); OCCULT BLOOD URINE 1+ (NEGATIVE); PH URINE 5.5 (4.5-8.0); PROTEIN URINE NEGATIVE (NEGATIVE); SPECIFIC GRAVITY URINE 1.021 (1.005-1.030); UROBILINOGEN URINE 0.2 E.U./dL (0.2-1.0)
[2024-11-06 14:47] LABS: TROPONIN I HIGH SENSITIVITY < 4 ng/L (3.0-34)
[2024-11-06 14:49] LABS: ASPARTATE AMINOTRANSFERASE 24 IU/L (<34); BILIRUBIN DIRECT 0.1 mg/dL (<=3.0); BILIRUBIN TOTAL 0.3 mg/dL (0.1-1.0); PROTEIN TOTAL 6.5 g/dL (6.0-8.3)
[2024-11-06 15:08] LABS: MUCUS URINE TRACE /lpf (< = 2+); RBC URINE 0-2 /hpf (0-2); SQUAMOUS EPITHELIAL CELL URINE 2+ /lpf (RARE/1+)
[2024-11-06 15:10] LABS: BACTERIA URINE 1+; WBC URINE 0-2 /hpf (0-2)
[2024-11-06 15:50] VITALS: BP 115/68; PULSE 84; RESP 16; TEMP 36.7; O2SAT 100
== END 2024-11-06 15:52 | disposition home or self-care (01) ==
LOC: ER 12:05
DX: R10.9 Unspecified abdominal pain (principal); M54.6 Pain in thoracic spine; I10 Essential (primary) hypertension; E11.9 Type 2 diabetes mellitus without complications; Z88.6 Allergy status to analgesic agent; Z88.0 Allergy status to penicillin; Z79.899 Other long term (current) drug therapy; Z98.890 Other specified postprocedural states
CPT/HCPCS: 36415; 71045; 74176; 80048; 80076; 81003; 84484; 85025; 99284

== ENCOUNTER 2024-11-10 21:34 | Emergency (ER) | payer MEDICAID ==
[~2024-11-10] VITALS: Ht 157.5 cm; Wt 82.0 kg
[2024-11-10 21:57] VITALS: O2SAT 98
[2024-11-11] MEDS ORDERED: ACET-2708 MT (01:42)
[2024-11-11] MEDS ORDERED: BACL-141 MT (01:42)
[2024-11-11] MEDS: MORPHINE SULFATE 4 MG/ML INJ (FOR IV/IM USE) IM ONE (02:03)
[2024-11-11] MEDS: LIDOCAINE 5% PATCH TOP SCH (02:05)
[2024-11-11 02:18] VITALS: BP 111/71; PULSE 74; RESP 18; TEMP 36.7; O2SAT 98
== END 2024-11-11 02:20 | disposition home or self-care (01) ==
LOC: ER 21:34
DX: G89.29 Other chronic pain (principal); M54.50 Low back pain, unspecified; I10 Essential (primary) hypertension; E11.9 Type 2 diabetes mellitus without complications; K21.9 Gastro-esophageal reflux disease without esophagitis; Z79.899 Other long term (current) drug therapy; Z79.84 Long term (current) use of oral hypoglycemic drugs; Z79.52 Long term (current) use of systemic steroids; Z79.1 Long term (current) use of non-steroidal anti-inflammatories (NSAID); Z88.6 Allergy status to analgesic agent
CPT/HCPCS: 99283; 96372; J2270

== ENCOUNTER 2024-11-23 11:51 | Emergency (ER) | payer MEDICAID ==
[~2024-11-23] VITALS: Ht 154.9 cm; Wt 64.0 kg
[~2024-11-23 11:51] MED LIST changes: +BACL-141 MT; +PERM60CR20 TP; -PERM60CR4 TP
[2024-11-23 12:04] VITALS: O2SAT 99
[2024-11-23 14:48] LABS: BASOPHILS % 0.8 % (0.0-2.0); EOSINOPHILS % 0.9 % (0.0-5.0); HEMATOCRIT. 37.7 % (36.0-48.0); HEMOGLOBIN. 12.1 g/dL (12.0-16.0); LYMPHOCYTES % 31.9 % (20.0-50.0); MEAN PLATELET VOLUME 9.0 fl (7.4-10.4); MONOCYTES % 6.9 % (2.0-8.0); NEUTROPHILS % 59.5 % (40.0-76.0); PLATELET 170 x1000/uL (130-400); RED BLOOD CELL COUNT 4.32 mill/uL (4.2-5.4); RED CELL DISTRIBUTION WIDTH 15.2 % (11.6-14.6)
[2024-11-23 14:55] LABS: CLARITY URINE CLEAR (CLEAR); COLOR URINE YELLOW (YELLOW); GLUCOSE URINE NEGATIVE (NEGATIVE); KETONES URINE NEGATIVE (NEGATIVE); LEUKOCYTE ESTERASE URINE 1+ (NEGATIVE); NITRITE URINE NEGATIVE (NEGATIVE); OCCULT BLOOD URINE TRACE (NEGATIVE); PH URINE 5.5 (4.5-8.0); PROTEIN URINE NEGATIVE (NEGATIVE); SPECIFIC GRAVITY URINE 1.020 (1.005-1.030); UROBILINOGEN URINE 1.0 E.U./dL (0.2-1.0)
[2024-11-23 15:01] LABS: CREATININE 0.7 mg/dL (0.6-1.0); UREA NITROGEN BLOOD 11 mg/dL (9-23)
[2024-11-23 15:02] LABS: TROPONIN I HIGH SENSITIVITY < 4 ng/L (3.0-34)
[2024-11-23 15:11] LABS: BACTERIA URINE NONE SEEN; RBC URINE 0-2 /hpf (0-2); SQUAMOUS EPITHELIAL CELL URINE 1+ /lpf (RARE/1+); YEAST URINE NONE SEEN
[2024-11-23] MEDS ORDERED: NITR-87 MT (16:13)
[2024-11-23 17:01] VITALS: BP 122/74; PULSE 80; RESP 16; TEMP 36.9; O2SAT 99
== END 2024-11-23 17:02 | disposition home or self-care (01) ==
LOC: ER 11:51
DX: N39.0 Urinary tract infection, site not specified (principal); E11.9 Type 2 diabetes mellitus without complications; I10 Essential (primary) hypertension; F10.90 Alcohol use, unspecified, uncomplicated; Z79.1 Long term (current) use of non-steroidal anti-inflammatories (NSAID); Z79.52 Long term (current) use of systemic steroids; Z79.84 Long term (current) use of oral hypoglycemic drugs; Z79.891 Long term (current) use of opiate analgesic; Z79.899 Other long term (current) drug therapy; Z88.0 Allergy status to penicillin; Z88.6 Allergy status to analgesic agent; Y90.9 Presence of alcohol in blood, level not specified
CPT/HCPCS: 36415; 80048; 81003; 83735; 84484; 85025; 93005; 99284

== ENCOUNTER 2024-12-01 00:59 | Emergency (ER) | payer MEDICAID ==
[~2024-12-01] VITALS: Ht 162.6 cm; Wt 78.0 kg
[~2024-12-01 00:59] MED LIST changes: +NITR-87 MT
[2024-12-01 01:04] VITALS: BP 123/88; PULSE 85; RESP 14; TEMP 36.7; O2SAT 98
[2024-12-01 03:23] LABS: BASOPHILS % 0.7 % (0.0-2.0); EOSINOPHILS % 1.4 % (0.0-5.0); HEMATOCRIT. 38.5 % (36.0-48.0); HEMOGLOBIN. 12.3 g/dL (12.0-16.0); LYMPHOCYTES % 39.2 % (20.0-50.0); MEAN PLATELET VOLUME 9.0 fl (7.4-10.4); MONOCYTES % 7.9 % (2.0-8.0); NEUTROPHILS % 50.8 % (40.0-76.0); PLATELET 154 x1000/uL (130-400); RED BLOOD CELL COUNT 4.42 mill/uL (4.2-5.4); RED CELL DISTRIBUTION WIDTH 15.0 % (11.6-14.6)
[2024-12-01 03:35] LABS: CREATININE 0.8 mg/dL (0.6-1.0); UREA NITROGEN BLOOD 10 mg/dL (9-23)
== END 2024-12-01 04:04 | disposition home or self-care (01) ==
LOC: ER 00:59
DX: E11.649 Type 2 diabetes mellitus with hypoglycemia without coma (principal); F41.0 Panic disorder [episodic paroxysmal anxiety]; I10 Essential (primary) hypertension; F10.90 Alcohol use, unspecified, uncomplicated; Z79.1 Long term (current) use of non-steroidal anti-inflammatories (NSAID); Z79.52 Long term (current) use of systemic steroids; Z79.84 Long term (current) use of oral hypoglycemic drugs; Z79.891 Long term (current) use of opiate analgesic; Z79.899 Other long term (current) drug therapy; Z88.0 Allergy status to penicillin; Z88.6 Allergy status to analgesic agent; Y90.9 Presence of alcohol in blood, level not specified
CPT/HCPCS: 36415; 80048; 85025; 99283

== ENCOUNTER 2024-12-11 15:32 | Emergency (ER) | payer MEDICAID ==
[~2024-12-11] VITALS: Ht 154.9 cm; Wt 81.0 kg
[2024-12-11 15:39] VITALS: TEMP 37.1; O2SAT 100
[2024-12-11] MEDS: TETRACAINE 0.5% OPHTH DROPS 4ML EACHEYE ONE (15:45)
[2024-12-11 16:13] VITALS: BP 114/70; PULSE 89; RESP 16; O2SAT 100
== END 2024-12-11 16:15 | disposition home or self-care (01) ==
LOC: ER 15:32
DX: J34.89 Other specified disorders of nose and nasal sinuses (principal); R07.0 Pain in throat; I10 Essential (primary) hypertension; E11.9 Type 2 diabetes mellitus without complications; Z79.899 Other long term (current) drug therapy; Z79.84 Long term (current) use of oral hypoglycemic drugs; Z79.891 Long term (current) use of opiate analgesic; Z79.52 Long term (current) use of systemic steroids; Z79.1 Long term (current) use of non-steroidal anti-inflammatories (NSAID); Z88.0 Allergy status to penicillin; Z88.6 Allergy status to analgesic agent
CPT/HCPCS: 99283

== ENCOUNTER 2025-01-09 21:47 | Emergency (ER) | payer MEDICAID ==
[~2025-01-09] VITALS: Ht 157.5 cm; Wt 78.0 kg
[2025-01-09 21:57] VITALS: O2SAT 99
[2025-01-09] MEDS ORDERED: ALBU2SYR23 MT (22:19)
[2025-01-09 22:33] VITALS: BP 111/71; PULSE 70; RESP 16; TEMP 36.9; O2SAT 100
[2025-01-09] MEDS: PREDNISONE 20MG TABLET PO ONE (22:33)
== END 2025-01-09 22:38 | disposition home or self-care (01) ==
LOC: ER 21:47
DX: R06.2 Wheezing (principal); Z76.0 Encounter for issue of repeat prescription; E11.9 Type 2 diabetes mellitus without complications; I10 Essential (primary) hypertension; Z79.1 Long term (current) use of non-steroidal anti-inflammatories (NSAID); Z79.52 Long term (current) use of systemic steroids; Z79.84 Long term (current) use of oral hypoglycemic drugs; Z79.891 Long term (current) use of opiate analgesic; Z88.0 Allergy status to penicillin; Z88.6 Allergy status to analgesic agent; Z79.899 Other long term (current) drug therapy
CPT/HCPCS: 99283; J7512

== ENCOUNTER 2025-01-25 11:16 | Emergency (ER) | payer BC, MEDICAID ==
[~2025-01-25] VITALS: Ht 154.9 cm; Wt 82.0 kg
[2025-01-25 11:33] VITALS: O2SAT 99
[2025-01-25] MEDS ORDERED: DOXY100T2 MT (14:40)
[2025-01-25] MEDS ORDERED: MOME17SP11 BOTHNSTRLS (14:40)
[2025-01-25] MEDS: HYDROCODONE/ACETAMINOPHEN 5/325MG TABLET PO ONE (14:56)
[2025-01-25 14:57] VITALS: BP 125/80; PULSE 70; RESP 18; TEMP 36.6; O2SAT 95
== END 2025-01-25 14:59 | disposition home or self-care (01) ==
LOC: ER 11:16
DX: J32.0 Chronic maxillary sinusitis (principal); E11.9 Type 2 diabetes mellitus without complications; F10.90 Alcohol use, unspecified, uncomplicated; I10 Essential (primary) hypertension; Z79.1 Long term (current) use of non-steroidal anti-inflammatories (NSAID); Z79.51 Long term (current) use of inhaled steroids; Z79.52 Long term (current) use of systemic steroids; Z79.84 Long term (current) use of oral hypoglycemic drugs; Z79.891 Long term (current) use of opiate analgesic; Z79.899 Other long term (current) drug therapy; Z88.0 Allergy status to penicillin; Z88.6 Allergy status to analgesic agent; Y90.9 Presence of alcohol in blood, level not specified
CPT/HCPCS: 99283

== ENCOUNTER 2025-02-14 10:22 | Emergency (ER) | payer BC, MEDICAID ==
[~2025-02-14] VITALS: Ht 157.5 cm; Wt 81.0 kg
[~2025-02-14 10:22] MED LIST changes: +DOXY100T2 MT; +MOME17SP11 BOTHNSTRLS
[2025-02-14 10:32] VITALS: O2SAT 100
[2025-02-14] MEDS ORDERED: ALBU2SYR23 MT (11:07)
[2025-02-14] MEDS ORDERED: CETI10CA2 MT (11:07)
[2025-02-14 11:40] VITALS: BP 105/68; PULSE 85; RESP 16; TEMP 36.7; O2SAT 100
== END 2025-02-14 11:41 | disposition home or self-care (01) ==
LOC: ER 10:22
DX: J02.9 Acute pharyngitis, unspecified (principal); J45.909 Unspecified asthma, uncomplicated; E11.9 Type 2 diabetes mellitus without complications; I10 Essential (primary) hypertension; Z76.0 Encounter for issue of repeat prescription; Z79.1 Long term (current) use of non-steroidal anti-inflammatories (NSAID); Z79.51 Long term (current) use of inhaled steroids; Z79.52 Long term (current) use of systemic steroids; Z79.84 Long term (current) use of oral hypoglycemic drugs; Z79.891 Long term (current) use of opiate analgesic; Z79.899 Other long term (current) drug therapy; Z88.0 Allergy status to penicillin; Z88.6 Allergy status to analgesic agent
CPT/HCPCS: 99282

== ENCOUNTER 2025-02-24 21:36 | Emergency (ER) | payer BC ==
[~2025-02-24] VITALS: Ht 162.6 cm; Wt 82.0 kg
[~2025-02-24 21:36] MED LIST changes: +CETI10CA2 MT
[2025-02-24 21:50] VITALS: O2SAT 99
[2025-02-24 22:52] LABS: BASOPHILS % 0.6 % (0.0-2.0); EOSINOPHILS % 1.2 % (0.0-5.0); HEMATOCRIT. 37.8 % (36.0-48.0); HEMOGLOBIN. 12.0 g/dL (12.0-16.0); LYMPHOCYTES % 35.4 % (20.0-50.0); MEAN PLATELET VOLUME 8.2 fl (7.4-10.4); MONOCYTES % 6.9 % (2.0-8.0); NEUTROPHILS % 55.9 % (40.0-76.0); PLATELET 190 x1000/uL (130-400); RED BLOOD CELL COUNT 4.36 mill/uL (4.2-5.4); RED CELL DISTRIBUTION WIDTH 14.8 % (11.6-14.6)
[2025-02-24 23:02] LABS: CREATININE 0.8 mg/dL (0.6-1.0); UREA NITROGEN BLOOD 16 mg/dL (9-23)
[2025-02-24 23:03] LABS: TROPONIN I HIGH SENSITIVITY < 4 ng/L (3.0-34)
[2025-02-24] MEDS: ACETAMINOPHEN 325MG TABLET PO ONE (23:43)
[2025-02-24] MEDS ORDERED: ALBU2SYR24 MT (23:46)
[2025-02-25 00:16] VITALS: BP 130/71; PULSE 92; RESP 18; TEMP 36.7; O2SAT 99
== END 2025-02-25 00:18 | disposition home or self-care (01) ==
LOC: ER 21:36
DX: R07.9 Chest pain, unspecified (principal); E11.9 Type 2 diabetes mellitus without complications; J45.909 Unspecified asthma, uncomplicated; I10 Essential (primary) hypertension; F17.200 Nicotine dependence, unspecified, uncomplicated; Z79.899 Other long term (current) drug therapy; Z88.0 Allergy status to penicillin; Z88.6 Allergy status to analgesic agent
CPT/HCPCS: 36415; 71045; 80048; 84484; 85025; 93005; 99285

== ENCOUNTER 2025-03-05 13:29 | Emergency (ER) | payer BC ==
[~2025-03-05] VITALS: Ht 157.5 cm; Wt 82.0 kg
[~2025-03-05 13:29] MED LIST changes: +ALBU2SYR24 MT
[2025-03-05 13:33] VITALS: O2SAT 99
[2025-03-05] MEDS ORDERED: LIDO-53 TP (17:18)
[2025-03-05 18:23] VITALS: BP 110/70; PULSE 90; RESP 18; TEMP 36.7; O2SAT 99
== END 2025-03-05 18:25 | disposition home or self-care (01) ==
LOC: ER 13:29
DX: M79.602 Pain in left arm (principal); M79.605 Pain in left leg; E11.9 Type 2 diabetes mellitus without complications; J45.909 Unspecified asthma, uncomplicated; Z79.52 Long term (current) use of systemic steroids; Z79.51 Long term (current) use of inhaled steroids; Z79.1 Long term (current) use of non-steroidal anti-inflammatories (NSAID); Z79.899 Other long term (current) drug therapy; Z79.891 Long term (current) use of opiate analgesic; Z79.84 Long term (current) use of oral hypoglycemic drugs; Z88.6 Allergy status to analgesic agent; Z88.0 Allergy status to penicillin
CPT/HCPCS: 93971; 99284

== ENCOUNTER 2025-03-08 15:00 | Emergency (ER) | payer BC ==
[~2025-03-08] VITALS: Ht 157.5 cm; Wt 91.0 kg
[~2025-03-08 15:00] MED LIST changes: +LIDO-53 TP
[2025-03-08 15:17] VITALS: O2SAT 99
[2025-03-08 18:03] LABS: BASOPHILS % 0.6 % (0.0-2.0); EOSINOPHILS % 1.2 % (0.0-5.0); HEMATOCRIT. 37.9 % (36.0-48.0); HEMOGLOBIN. 11.7 g/dL (12.0-16.0); LYMPHOCYTES % 35.3 % (20.0-50.0); MEAN PLATELET VOLUME 8.4 fl (7.4-10.4); MONOCYTES % 7.3 % (2.0-8.0); NEUTROPHILS % 55.6 % (40.0-76.0); PLATELET 176 x1000/uL (130-400); RED BLOOD CELL COUNT 4.11 mill/uL (4.2-5.4); RED CELL DISTRIBUTION WIDTH 15.0 % (11.6-14.6)
[2025-03-08 18:14] LABS: CREATININE 0.9 mg/dL (0.6-1.0)
[2025-03-08 18:15] LABS: UREA NITROGEN BLOOD 15 mg/dL (9-23)
[2025-03-08 18:16] LABS: TROPONIN I HIGH SENSITIVITY < 4 ng/L (3.0-34)
[2025-03-08] MEDS: ACETAMINOPHEN 500MG TABLET PO ONE (18:28)
[2025-03-08] MEDS: CYCLOBENZAPRINE 10MG TABLET PO ONE (18:28)
[2025-03-08] MEDS ORDERED: FERR325T6 MT (18:46)
[2025-03-08] MEDS ORDERED: DOCU-422 MT (18:46)
[2025-03-08] MEDS ORDERED: ACET-2708 MT (18:46)
[2025-03-08 18:53] VITALS: BP 120/64; PULSE 81; RESP 18; TEMP 36.7; O2SAT 99
[2025-03-20] MEDS ORDERED: ACET-2708 MT (14:03)
== END 2025-03-08 18:55 | disposition home or self-care (01) ==
LOC: ER 15:00
DX: M54.50 Low back pain, unspecified (principal); R07.89 Other chest pain; D64.9 Anemia, unspecified; E11.9 Type 2 diabetes mellitus without complications; J45.909 Unspecified asthma, uncomplicated; Z79.1 Long term (current) use of non-steroidal anti-inflammatories (NSAID); Z79.51 Long term (current) use of inhaled steroids; Z79.52 Long term (current) use of systemic steroids; Z79.84 Long term (current) use of oral hypoglycemic drugs; Z79.891 Long term (current) use of opiate analgesic; Z79.899 Other long term (current) drug therapy; Z86.718 Personal history of other venous thrombosis and embolism; Z88.0 Allergy status to penicillin; Z88.6 Allergy status to analgesic agent
CPT/HCPCS: 36415; 71045; 80048; 84484; 85025; 93005; 99285